=== PATIENT | female | born 1945 | race Two or more races ===

== ENCOUNTER 2020-05-11 06:09 | Outpatient (REF) | payer MEDICARE, SELFPAY ==
[2020-05-11 07:19] LABS: MANUAL DIFF FLAG NO
[2020-05-11 07:21] LABS: Basophils Percent Auto 0.4 % (0-2); Eosinophils Absolute Auto 0.1 X10*3/uL (0.0-0.4); Hematocrit 40.4 % (37-47); Hemoglobin 13.1 g/dl (12.0-16.0); Imm Gran Abs Auto 0.03 X10*3/uL (0.00-0.03); Imm Gran Pct Auto 0.3 % (0.0-0.4); Lymphocytes Absolute Auto 2.4 X10*3/uL (1.2-4.9); Lymphocytes Percent Auto 25.7 % (20-40); Mean Corpuscular HGB Conc 32.4 g/dl (31.0-35.0); Mean Corpuscular Hemoglobin 29.6 pg (27.0-33.0); Mean Corpuscular Volume 91.2 fL (80-98); Mean Platelet Volume 9.9 fL (9.4-12.3); Monocytes Absolute Auto 0.9 X10*3/uL (0.1-1.2); Monocytes Percent Auto 9.8 % (2-11); Neutrophils Absolute Auto 5.9 X10*3/uL (2.0-8.3); Neutrophils Percent Auto 62.8 % (45-73); Platelet Count 216 X10*3/uL (160-400); Red Blood Count 4.43 X10*6/uL (4.20-5.50); Red Cell Distribution Width 12.8 % (11.0-16.0); White Blood Count 9.3 X10*3/uL (4.8-10.8)
[2020-05-11 07:33] LABS: Estimated Average Glucose 120 mg/dL; Hemoglobin A1c % 5.8 %
[2020-05-11 07:52] LABS: Alanine Aminotransferase 14 U/L (0-31); Albumin Level 4.3 g/dL (3.5-5.0); Alkaline Phosphatase 71 U/L (39-117); Anion Gap 14 (12-20); Aspartate Amino Transferase 17 U/L (5-31); B Type Natriuretic Peptide 189 pg/mL (<100); Bilirubin Total 0.8 mg/dL (0.0-1.0); Blood Urea Nitrogen 15 mg/dL (9-16); Calcium 9.5 mg/dL (8.4-10.2); Carbon Dioxide 29 mmol/L (22-29); Chloride 103 mmol/L (96-108); Cholesterol 168 mg/dL; Estimated Glomerular Filt Rate 59; Glucose Random 95 mg/dL (60-115); HDL Cholesterol 39 mg/dL; LDL Cholesterol Calculated 100 mg/dl; Potassium 4.9 mmol/l (3.3-5.1); Sodium 141 mmol/L (135-145); Total Protein 7.6 g/dL (6.5-8.0); Triglycerides 147 mg/dL
[2020-05-11 08:14] LABS: Free T4 (Free Thyroxine) 1.03 ng/dL (0.71-1.85); Vitamin D 25-OH Total 30.1 ng/mL (>30)
[2020-05-11 09:17] LABS: Vitamin B12 758 pg/mL (200-900)
== END 2020-05-11 06:10 | disposition home or self-care (01) ==
LOC: HO.LAB 06:09
PROVIDERS: PCP Internal Medicine; Visit Provider Internal Medicine
DX: I11.0 Hypertensive heart disease with heart failure (principal); I50.32 Chronic diastolic (congestive) heart failure; E03.9 Hypothyroidism, unspecified; E78.00 Pure hypercholesterolemia, unspecified
CPT/HCPCS: 36415; 80053; 80061; 82306; 82607; 82746; 83036; 83880; 84439; 84443; 85025

== ENCOUNTER 2020-05-12 08:18 | Outpatient (REF) | payer MEDICARE, SELFPAY ==
--- NOTE | 2020-05-12 08:23 | MM_ITS ---
EXAMINATION: MM SCREENING DIGITAL BREAST TOMOSYNTHESIS, BILATERAL CLINICAL INFORMATION: Screening. Asymptomatic. The lifetime risk of breast cancer based on the Tyrer-Cuzick Model is 2%. COMPARISON: Mammography: 05/08/2019, 05/06/2018, 04/17/2017 TECHNIQUE: Digital breast tomosynthesis is performed in both the craniocaudal and mediolateral oblique views along with computer-aided detection (CAD). Synthesized 2D images are generated from the tomosynthesis. FINDINGS: There are scattered areas of fibroglandular density (ACR BI-RADS breast composition Category b). There are no significant masses, abnormal calcifications, or other abnormalities. There are scattered bilateral round and vascular calcifications again noted. Intramammary node again seen mid outer left breast. No significant changes. MM/MM tomosynthesis screening BI IMPRESSION: No mammographic evidence of malignancy. ASSESSMENT: BI-RADS 2: Benign RECOMMENDATION: Routine annual mammography screening. This patient's information was entered into a reminder system with a target due date for their next mammogram.
== END 2020-05-12 08:19 | disposition home or self-care (01) ==
LOC: HO.MAMMO 08:18
PROVIDERS: PCP Internal Medicine; Visit Provider Internal Medicine
DX: Z12.31 Encounter for screening mammogram for malignant neoplasm of breast (principal)
CPT/HCPCS: 77063; 77067

== ENCOUNTER 2020-06-16 09:23 | Outpatient (REF) | payer MEDICARE, SELFPAY | END 2020-06-16 09:24 | disposition home or self-care (01) | LOC: HO.LAB 09:23 | PROVIDERS: Visit Provider Internal Medicine | DX: Z20.822 Contact with and (suspected) exposure to COVID-19 (principal) | CPT/HCPCS: 36415; C9803; U0003; U0005 ==

== ENCOUNTER → 2020-07-15 10:30 | Outpatient (BNVA) | payer MEDICARE, SELFPAY | PROVIDERS: PCP Internal Medicine; Visit Provider Internal Medicine Cardiovascular Disease | DX: I47.1 Supraventricular tachycardia (principal); I50.32 Chronic diastolic (congestive) heart failure; Z79.899 Other long term (current) drug therapy | CPT/HCPCS: 99212 ==

== ENCOUNTER → 2020-12-07 09:27 | Outpatient (REF) | payer MEDICARE, SELFPAY ==
--- NOTE | 2020-12-07 09:31 | CA_ITS ---
Transthoracic Echocardiogram Patient (Last, First, Middle): Julia Franz, Gender: Female Date of : 1945 Age: 75 Procedure Date: 12/07/2020 Procedure Type: Transthoracic Echocardiogram Location: OP Height: 165.1 cm Weight: 81.65 kg BSA: 1.89 m2 Heart Rate: bpm BP: 122 / 60 mmHg Knife Changer: Referring MD: Valentin Vanegas MD Symptoms: I50.32 - Chronic diastolic (congestive) heart failure Study Quality: Good ECG Rhythm: Sinus Conclusions: - The left ventricular systolic function is normal. The visually estimated ejection fraction is between 60-65%. - There is moderate septal asymmetric hypertrophy.Other areas mild hypertrophy. - Evidence suggests grade II (moderate) diastolic dysfunction. - The left atrium is moderately dilated. - No obvious valvular pathology seen on this study. Findings Left Ventricle Normal left ventricular cavity size. There is mildly increased left ventricular wall thickness. The left ventricular systolic function is normal. The visually estimated ejection fraction is between 60-65%. There is no evidence of regional wall motion abnormalities. E/E prime ratio is between 8 and 15 consistent with indeterminate filling pressures. Evidence suggests grade II (moderate) diastolic dysfunction. There is moderate septal asymmetric hypertrophy. Right Ventricle Normal right ventricular cavity size and systolic function. Atria The left atrium is moderately dilated. The right atrium is normal in size. Aortic Valve There is a normal trileaflet aortic valve. There is no aortic valve stenosis. There is no aortic valve regurgitation. Mitral Valve There is mild anterior mitral leaflet thickening. There is trace mitral valve regurgitation. There is no mitral valve stenosis. Pulmonic Valve The pulmonic valve was not well visualized. Tricuspid Valve There is trace tricuspid valve regurgitation. The pulmonary artery systolic pressure is normal. Great Vessels Top normal ascending aortic size at 3.9 cm. Venous The inferior vena cava is normal in size and collapses greater than 50% with inspiration. Pericardium/Pleural There is no evidence of pericardial effusion. Prior Study Comparison No significant change compared to prior study dated: 01/08/2020. Recommendations, Care & Conclusions No obvious valvular pathology seen on this study. Measurements 2D Linear Measurements IVSd: 1.44 0.6-0.9/0.6-1.0 cm LVIDd: 4.78 3.9-5.3/4.2-5.9 cm LVIDd Index: 2.53 2.4-3.2/2.2-3.1 cm/m2 LVIDs: 2.88 2.0-3.6 cm LVPWd: 1.40 0.7-1.1 cm Ao Root: 3.60 2.1-3.5 cm LA Diam: 4.10 2.7-3.8/3.0-4.0 cm LAIDs Index: 2.17 1.5-2.3 cm/m2 LV Mass: 346.56 67-162/88-224 g LV Mass Index: 183.37 43-95/49-115 g/m2 LVOT Diam: 2.40 3.0+(-)1.3 cm Mitral Valve MV Pk E: 0.68 MV PK A: 0.53 MV Decel Time: 154.00 E/A: 1.30 E'Lateral: 8.27 E'Medial: 3.59 E/E' Med: 19.00 E/E' Lat: 8.20 PHT: 45.00 MVA PHT: 4.89 Decel [place]: 4.41 Aortic Valve AoV Pk [place]: 1.20 AoV Mn [place]: 0.72 AoV VTI: 0.30 AoV Pk Grad: 6.00 Aov Mn Grad: 3.00 [place] Cont.VTI: 4.14 LVOT LVOT Pk [place]: 0.95 LVOT Mn [place]: 0.63 LVOT VTI: 0.27 LVOT Pk Grad: 4.00 LVOT Mn Grad: 2.00 LVOT Diam: 2.40 LVOT Area: 4.52 Diastolic Function MV Pk E: 0.68 MV Pk A: 0.53 E/A: 1.30 E'Medial: 3.59 E/E' Med: 19.00 E' Laterial: 8.27 E/E' Lat: 8.20 Tricuspid Valve TR Pk [place]: 1.65 TR Pk Grad: 11.00 RA Press: 3.00 RVSP: 14.00 Great Vessels Aorta Ao Root-2D: 3.60 2.0-3.7 cm Ao Asc: 3.90 2.1-3.4 cm Pulmonary Valve PV Pk [place]: 0.90 Peak PV Grad: 3.00 Updated in Other Vendor System with Status of Final Jeremiah Wen MD electronically signed on 12/10/2020 1:00:29 PM with status of Final
== END ==
LOC: HO.CARD 09:27
PROVIDERS: Visit Provider Internal Medicine Cardiovascular Disease
DX: I11.0 Hypertensive heart disease with heart failure (principal); I50.32 Chronic diastolic (congestive) heart failure
CPT/HCPCS: 93306

== ENCOUNTER 2021-01-20 08:44 | Outpatient (REF) | payer MEDICARE, SELFPAY ==
[2021-01-20 10:55] LABS: Anion Gap 11 (12-20); Blood Urea Nitrogen 15 mg/dL (9-16); Calcium 10.2 mg/dL (8.4-10.2); Carbon Dioxide 30 mmol/L (22-29); Chloride 105 mmol/L (96-108); Estimated Glomerular Filt Rate > 60; Glucose Random 96 mg/dL (60-115); Potassium 4.8 mmol/L (3.3-5.1); Sodium 141 mmol/L (135-145)
[2021-01-20 10:58] LABS: B Type Natriuretic Peptide 305 pg/mL (<100)
== END 2021-01-20 08:45 | disposition home or self-care (01) ==
LOC: HO.LAB 08:44
PROVIDERS: PCP Internal Medicine; Referring Provider Internal Medicine; Visit Provider Internal Medicine Cardiovascular Disease
DX: I50.32 Chronic diastolic (congestive) heart failure (principal); I47.1 Supraventricular tachycardia
CPT/HCPCS: 36415; 80048; 83880; 93005; 99212

== ENCOUNTER 2021-02-17 06:00 | Outpatient (REF) | payer MEDICARE, SELFPAY ==
[2021-02-17 06:08] LABS: MANUAL DIFF FLAG NO
[2021-02-17 07:24] LABS: Basophils Percent Auto 0.5 % (0-2); Eosinophils Absolute Auto 0.1 X10*3/uL (0.0-0.4); Eosinophils Percent Auto 1.5 % (0-4); Hematocrit 37.7 % (37-47); Hemoglobin 12.2 g/dl (12.0-16.0); Imm Gran Abs Auto 0.01 X10*3/uL (0.00-0.03); Imm Gran Pct Auto 0.2 % (0.0-0.4); Lymphocytes Absolute Auto 2.2 X10*3/uL (1.2-4.9); Lymphocytes Percent Auto 33.3 % (20-40); Mean Corpuscular HGB Conc 32.4 g/dl (31.0-35.0); Mean Corpuscular Hemoglobin 29.5 pg (27.0-33.0); Mean Corpuscular Volume 91.1 fL (80-98); Mean Platelet Volume 9.6 fL (9.4-12.3); Monocytes Absolute Auto 0.8 X10*3/uL (0.1-1.2); Monocytes Percent Auto 12.2 % (2-11); Neutrophils Absolute Auto 3.4 X10*3/uL (2.0-8.3); Neutrophils Percent Auto 52.3 % (45-73); Platelet Count 206 X10*3/uL (160-400); Red Blood Count 4.14 X10*6/uL (4.20-5.50); Red Cell Distribution Width 12.2 % (11.0-16.0); White Blood Count 6.5 X10*3/uL (4.8-10.8)
[2021-02-17 07:51] LABS: Alanine Aminotransferase 12 U/L (0-31); Albumin Level 4.3 g/dL (3.5-5.0); Alkaline Phosphatase 65 U/L (39-117); Anion Gap 10 (12-20); Aspartate Amino Transferase 15 U/L (5-31); Bilirubin Total 0.7 mg/dL (0.0-1.0); Blood Urea Nitrogen 17 mg/dL (9-16); Calcium 10.2 mg/dL (8.4-10.2); Carbon Dioxide 33 mmol/L (22-29); Chloride 104 mmol/L (96-108); Cholesterol 171 mg/dL; Estimated Glomerular Filt Rate 57; Glucose Random 97 mg/dL (60-115); HDL Cholesterol 43 mg/dL; LDL Cholesterol Calculated 105 mg/dl; Sodium 142 mmol/L (135-145); Total Protein 7.4 g/dL (6.5-8.0); Triglycerides 115 mg/dL
[2021-02-17 07:57] LABS: B Type Natriuretic Peptide 204 pg/mL (<100)
[2021-02-17 08:12] LABS: Free T4 (Free Thyroxine) 1.08 ng/dL (0.71-1.85); Thyroid Stimulating Hormone 0.52 uIU/mL (0.32-4.0)
[2021-02-17 08:24] LABS: Folate 6.4 ng/mL (> or = 4.0); Vitamin B12 786 pg/mL (200-900)
== END 2021-02-17 06:01 | disposition home or self-care (01) ==
LOC: HO.LAB 06:00
PROVIDERS: PCP Internal Medicine; Visit Provider Internal Medicine
DX: I50.32 Chronic diastolic (congestive) heart failure (principal); E78.00 Pure hypercholesterolemia, unspecified; I25.10 Atherosclerotic heart disease of native coronary artery without angina pectoris
CPT/HCPCS: 36415; 80053; 80061; 82607; 82746; 83880; 84439; 84443; 85025

== ENCOUNTER 2021-02-25 07:13 | Outpatient (REF) | payer OTHER, MEDICARE, SELFPAY ==
--- NOTE | ~2021-02-25 | XR_ITS ---
EXAMINATION:XR cervical spine 2V CLINICAL INFORMATION: December 2019 COMPARISON: None TECHNIQUE: 3 views of the cervical spine were obtained. Frontal lateral and open-mouth odontoid view FINDINGS: 7 cervical vertebrae identified maintaining normal height , there is loss of normal cervical lordosis likely spasm.. Narrowing of intervertebral disc spaces at C4-C5, C5-C6, C6-C7 and C7-T1 suggests underlying moderate to severe degenerative disc disease. No prevertebral soft tissue swelling. Surrounding soft tissue and included lung apices are clear. Included lung apices are clear. XR/XR cervical spine 2V IMPRESSION: 1. No fracture. 2. Narrowing of disc spaces and developed anterior osteophytes suggests underlying moderate to severe degenerative disc disease. 3. Loss of normal cervical lordosis likely spasm.
--- NOTE | ~2021-02-25 | XR_ITS ---
EXAMINATION: XR LUMBAR SPINE XR SHOULDER, LEFT CLINICAL INFORMATION: Low back pain and left shoulder pain. COMPARISON: None TECHNIQUE: 4 views left shoulder, 3 views lumbosacral spine. FINDINGS: LUMBAR SPINE: Degenerative changes are noted at all levels throughout the lumbar spine with some mild disc space narrowing and endplate osteophytes. No fractures or bony destructive lesions are seen. Marked aortoiliac vascular calcifications are present. LEFT SHOULDER: The glenohumeral joint is well preserved without narrowing. No calcifications are seen in the rotator cuff. No fractures are detected. XR/XR shoulder LT 1V IMPRESSION: Mild degenerative changes lumbar spine with no significant left shoulder pathology seen.
--- NOTE | ~2021-02-25 | XR_ITS ---
EXAMINATION: XR LUMBAR SPINE XR SHOULDER, LEFT CLINICAL INFORMATION: Low back pain and left shoulder pain. COMPARISON: None TECHNIQUE: 4 views left shoulder, 3 views lumbosacral spine. FINDINGS: LUMBAR SPINE: Degenerative changes are noted at all levels throughout the lumbar spine with some mild disc space narrowing and endplate osteophytes. No fractures or bony destructive lesions are seen. Marked aortoiliac vascular calcifications are present. LEFT SHOULDER: The glenohumeral joint is well preserved without narrowing. No calcifications are seen in the rotator cuff. No fractures are detected. XR/XR lumbar spine 2-3V IMPRESSION: Mild degenerative changes lumbar spine with no significant left shoulder pathology seen.
== END 2021-02-25 07:14 | disposition home or self-care (01) ==
LOC: HO.XRAY 07:13
PROVIDERS: PCP Internal Medicine; Visit Provider Internal Medicine
DX: M25.512 Pain in left shoulder (principal); M54.2 Cervicalgia; M54.59 Other low back pain
CPT/HCPCS: 72040; 72100; 73020

== ENCOUNTER 2021-06-03 08:08 | Outpatient (REF) | payer MEDICARE, OTHER, SELFPAY ==
--- NOTE | ~2021-06-03 | MM_ITS ---
EXAMINATION: MM SCREENING DIGITAL BREAST TOMOSYNTHESIS, BILATERAL CLINICAL INFORMATION: Screening. Asymptomatic. The lifetime risk of breast cancer based on the Tyrer-Cuzick Model is 2%. COMPARISON: Mammography: 05/12/2020, 05/08/2019, 05/06/2018 TECHNIQUE: Digital breast tomosynthesis is performed in both the craniocaudal and mediolateral oblique views along with computer-aided detection (CAD). Synthesized 2D images are generated from the tomosynthesis. FINDINGS: There are scattered areas of fibroglandular density (ACR BI-RADS breast composition Category b). There are no significant masses, abnormal calcifications, or other abnormalities. Parenchymal pattern is similar to prior studies. There is no developing density or architectural abnormality. Breast tissue composition borders on heterogeneously dense. The axilla and skin contours are unremarkable. No significant changes. MM/MM tomosynthesis screening BI IMPRESSION: No significant changes from prior studies. ASSESSMENT: BI-RADS 1: Negative RECOMMENDATION: Routine annual mammography screening. This patient's information was entered into a reminder system with a target due date for their next mammogram.
== END 2021-06-03 08:09 | disposition home or self-care (01) ==
LOC: HO.MAMMO 08:08
PROVIDERS: Visit Provider Internal Medicine
DX: Z12.31 Encounter for screening mammogram for malignant neoplasm of breast (principal)
CPT/HCPCS: 77063; 77067

== ENCOUNTER → 2021-07-22 13:04 | Outpatient (REF) | payer MEDICARE, OTHER, SELFPAY ==
--- NOTE | 2021-07-22 13:07 | CA_ITS ---
Transthoracic Echocardiogram Patient (Last, First, Middle): Julia Frnaz, Gender: Female Date of : 1945 Age: 76 Procedure Date: 07/22/2021 Procedure Type: Transthoracic Echocardiogram Location: OP Height: 170.18 cm Weight: 90.27 kg BSA: 2.02 m2 Heart Rate: bpm BP: 120 / 70 mmHg Drafter Refrigeration: GENEVA Diez MD: Valentin Vanegas MD Sectional Belt Mold Assembler: Valentin Vanegas MD Symptoms: I50.32 - Chronic diastolic (congestive) heart failure Study Quality: Fair ECG Rhythm: Sinus Conclusions: - 1. Normal LV systolic function with impaired relaxation filling pattern with mild to moderate asymmetric septal hypertrophy 2. Mildly dilated left atrium 3. Normal cardiac valvular Doppler 4. Normal RV systolic pressure 5. No gross pericardial effusion Findings Left Ventricle Normal left ventricular size, thickness, and systolic function. The visually estimated ejection fraction is between 60-65%. Spectral Doppler is indicative of an impaired relaxation filling pattern. E/E prime ratio is between 8 and 15 consistent with indeterminate filling pressures. There is mild septal asymmetric hypertrophy. Right Ventricle Normal right ventricular cavity size and systolic function. Atria The left atrium is mildly dilated. There is lipomatous hypertrophy of the interatrial septum. There is no evidence of interatrial shunt. The right atrium is normal in size. Aortic Valve There is mild calcification of the aortic valve. There is no aortic valve stenosis. There is no aortic valve regurgitation. Mitral Valve There is mild anterior and posterior mitral leaflet thickening. There is trace mitral valve regurgitation. There is no mitral valve stenosis. Pulmonic Valve The pulmonic valve was not well visualized. Tricuspid Valve Likely normal tricuspid valve structure and function. There is trace tricuspid valve regurgitation. The right ventricular systolic pressure is normal. The right ventricular systolic pressure is 15 mmHg. Normal right atrial pressure. There is no evidence of pulmonary hypertension. Great Vessels All visible segments of the aorta are normal in size. The pulmonary artery was not well visualized. Venous The inferior vena cava is normal in size and collapses greater than 50% with inspiration. Pericardium/Pleural There is no evidence of pericardial effusion. Prior Study Comparison No significant change compared to prior study dated: 12/07/2020. Left ventricular filling pressures appear to be lower Measurements 2D Linear Measurements IVSd: 1.35 0.6-0.9/0.6-1.0 cm LVIDd: 5.06 3.9-5.3/4.2-5.9 cm LVIDd Index: 2.50 2.4-3.2/2.2-3.1 cm/m2 LVIDs: 2.76 2.0-3.6 cm LVPWd: 0.87 0.7-1.1 cm LA Diam: 4.00 2.7-3.8/3.0-4.0 cm LAIDs Index: 1.98 1.5-2.3 cm/m2 LV Mass: 266.53 67-162/88-224 g LV Mass Index: 131.94 43-95/49-115 g/m2 LVOT Diam: 2.30 3.0+(-)1.3 cm 2D Systolic Function EF 4C: 59.70 >55% EF 2C: 60.60 >55% EF BiP: 61.60 >55% Mitral Valve MV Pk E: 0.56 MV PK A: 0.52 MV Decel Time: 197.00 E/A: 1.10 E'Lateral: 5.33 E'Medial: 4.03 E/E' Med: 13.90 E/E' Lat: 10.50 PHT: 58.00 MVA PHT: 3.79 Decel [place]: 2.85 Aortic Valve AoV Pk [place]: 1.19 AoV Mn [place]: 0.82 AoV VTI: 0.26 AoV Pk Grad: 6.00 Aov Mn Grad: 3.00 [place] Cont.VTI: 4.36 LVOT LVOT Pk [place]: 1.21 LVOT Mn [place]: 0.87 LVOT VTI: 0.28 LVOT Pk Grad: 6.00 LVOT Mn Grad: 3.00 LVOT Diam: 2.30 LVOT Area: 4.15 Diastolic Function MV Pk E: 0.56 MV Pk A: 0.52 E/A: 1.10 E'Medial: 4.03 E/E' Med: 13.90 E' Laterial: 5.33 E/E' Lat: 10.50 Right Ventricle TAPSE (mm): 20.40 TVS' [place]: 10.20 Tricuspid Valve TR Pk [place]: 1.76 TR Pk Grad: 12.00 RA Press: 3.00 RVSP: 15.00 Great Vessels Aorta Sinus of Valsalva: 3.83 2.0-3.[address] [place]: 3.19 1.7-3.4 cm Ao Asc: 3.90 2.1-3.4 cm Ao Arch: 2.80 Updated in Other Vendor System with Status of Final Valentin Vanegas MD electronically signed on 07/24/2021 10:08:56 AM with status of Final
== END ==
LOC: HO.CARD 13:04
PROVIDERS: Visit Provider Internal Medicine Cardiovascular Disease
DX: I50.32 Chronic diastolic (congestive) heart failure (principal)
CPT/HCPCS: 93306

== ENCOUNTER → 2021-07-26 09:23 | Outpatient (BNVA) | payer MEDICARE, OTHER, SELFPAY | PROVIDERS: PCP Internal Medicine; Referring Provider Internal Medicine; Visit Provider Internal Medicine Cardiovascular Disease | DX: I50.32 Chronic diastolic (congestive) heart failure (principal); I47.1 Supraventricular tachycardia | CPT/HCPCS: 99212 ==

== ENCOUNTER 2021-11-09 05:59 | Outpatient (REF) | payer OTHER, SELFPAY ==
[2021-11-09 06:14] LABS: MANUAL DIFF FLAG NO
[2021-11-09 08:13] LABS: Basophils Absolute Auto 0.1 X10*3/uL (0.0-0.2); Basophils Percent Auto 0.7 % (0-2); Eosinophils Absolute Auto 0.1 X10*3/uL (0.0-0.4); Eosinophils Percent Auto 1.7 % (0-4); Hematocrit 39.4 % (37.0-47.0); Hemoglobin 12.9 g/dl (12.0-16.0); Imm Gran Abs Auto 0.02 X10*3/uL (0.00-0.03); Imm Gran Pct Auto 0.3 % (0.0-0.4); Lymphocytes Absolute Auto 2.4 X10*3/uL (1.2-4.9); Lymphocytes Percent Auto 31.8 % (20-40); Mean Corpuscular HGB Conc 32.7 g/dl (31.0-35.0); Mean Corpuscular Hemoglobin 29.8 pg (27.0-33.0); Mean Platelet Volume 9.8 fL (9.4-12.3); Monocytes Absolute Auto 0.8 X10*3/uL (0.1-1.2); Monocytes Percent Auto 10.1 % (2-11); Neutrophils Absolute Auto 4.2 x10*3/uL (2.0-8.3); Neutrophils Percent Auto 55.4 % (45-73); Platelet Count 235 X10*3/uL (160-400); Red Blood Count 4.33 X10*6/uL (4.20-5.50); Red Cell Distribution Width 12.3 % (11.0-16.0); White Blood Count 7.6 X10*3/uL (4.8-10.8)
[2021-11-09 08:44] LABS: Alanine Aminotransferase 17 U/L (0-31); Albumin Level 4.2 g/dL (3.5-5.0); Alkaline Phosphatase 76 U/L (39-117); Anion Gap 12 (12-20); Aspartate Amino Transferase 18 U/L (5-31); Bilirubin Total 0.5 mg/dL (0.0-1.0); Blood Urea Nitrogen 19 mg/dL (9-16); Calcium 9.5 mg/dL (8.4-10.2); Carbon Dioxide 30 mmol/L (22-29); Chloride 104 mmol/L (96-108); Cholesterol 192 mg/dL; Estimated Glomerular Filt Rate 58; Glucose Random 93 mg/dL (60-115); HDL Cholesterol 41 mg/dL; LDL Cholesterol Calculated 126 mg/dl; Magnesium 2.1 mg/dL (1.6-2.6); Potassium 4.8 mmol/L (3.3-5.1); Sodium 141 mmol/L (135-145); Total Protein 7.5 g/dL (6.5-8.0); Triglycerides 129 mg/dL
[2021-11-09 08:50] LABS: B Type Natriuretic Peptide 204 pg/mL (<100)
[2021-11-09 09:08] LABS: Free T4 (Free Thyroxine) 0.85 ng/dL (0.71-1.85); Thyroid Stimulating Hormone 2.73 uIU/mL (0.32-4.0); Vitamin D 25-OH Total 26.2 ng/mL (>30)
[2021-11-09 09:10] LABS: Folate 8.4 ng/mL (> or = 4.0); Vitamin B12 771 pg/mL (200-900)
== END 2021-11-09 06:00 | disposition home or self-care (01) ==
LOC: HO.LAB 05:59
PROVIDERS: PCP Internal Medicine; Visit Provider Internal Medicine
DX: E78.00 Pure hypercholesterolemia, unspecified (principal); I11.0 Hypertensive heart disease with heart failure; I50.32 Chronic diastolic (congestive) heart failure; E03.9 Hypothyroidism, unspecified
CPT/HCPCS: 36415; 80053; 80061; 82306; 82607; 82746; 83735; 83880; 84439; 84443; 85025

== ENCOUNTER 2022-06-06 09:04 | Outpatient (REF) | payer OTHER, SELFPAY ==
--- NOTE | ~2022-06-06 | MM_ITS ---
EXAMINATION: BONE DENSITOMETRY CLINICAL INDICATION: Age-related osteoporosis without current pathological fracture. COMPARISON: Previous BD dated 08/10/2016 and baseline BD dated 01/06/2010. TECHNIQUE: Using a [facility] DXA System (software version: 13.1) manufactured by [employer], dual-energy x-ray absorptiometry was performed of the lumbar spine and left hip. The images are of good technical quality. Summary results are attached. FINDINGS: AP SPINE L1-L4: Current: BMD 1.066 g/cm2, Z-score 0.0, T-score -0.9, normal, 6.3% increase from previous, 0.8% decrease from baseline (<5% change is not significant). Prior: BMD 1.003 g/cm2. Baseline: BMD 1.075 g/cm2. LEFT FEMUR, NECK: Current: BMD 0.889 g/cm2, Z-score 0.4, T-score -1.1, osteopenia. Prior: BMD 0.914 g/cm2. Baseline: BMD 1.035 g/cm2. LEFT FEMUR, TOTAL: Current: BMD 0.994 g/cm2, Z-score 1.2, T-score -0.1, normal, 1.1% decrease from previous, 5.5% decrease from baseline (<5% change is not significant). Prior: BMD 1.005 g/cm2. Baseline: BMD 1.052 g/cm2. IDENTIFIED RISK FACTORS: Height loss. Secondary osteoporosis (early menopause). Hysterectomy. Bilateral oophorectomy. HISTORY OF FRACTURE: None listed. MEDICATIONS: Calcium supplement or multivitamin. Vitamin D. MM/XR DEXA axial skeleton IMPRESSION: 1. DIAGNOSIS: Osteopenia based on the lowest T-score value of -1.1 in the femoral neck applying World Health Organization criteria. 2. 10-YEAR FRACTURE RISK PREDICTION, FRAX: Major osteoporotic fracture (clinical spine, forearm, hip or shoulder) 6.3%. Hip fracture 1.1%. 3. Treatment Recommendations: NOF guidelines recommend consideration for treatment in postmenopausal women and men age 50 and older presenting with the following: -A hip or vertebral (clinical or morphometric) fracture. -T-score less than or equal to -2.5 at the femoral neck or spine after appropriate evaluation to exclude secondary causes. -Low bone mass at the hip or spine and a 10-year fracture probability by FRAX of greater than or equal to 3% for hip fracture or greater than or equal to 20% for major osteoporotic fracture based on the [place] adapted WHO algorithm. 4. Other Recommendations: All treatment decisions require clinical judgment and consideration of individual patient factors, including patient preferences, comorbidities, previous drug use, risk factors not captured in the FRAX model (e.g. frailty, falls, vitamin D deficiency, increased bone turnover, interval significant decline in bone density) and possible under or overestimation of fracture risk by FRAX. Additional medical evaluation for secondary cause of low bone mineral density may be appropriate. FUTURE SCAN RECOMMENDATION: People with diagnosed cases of osteoporosis or at high risk for fracture should have regular bone mineral density tests. For patients eligible for Medicare, routine testing is allowed once every 2 years. The testing frequency can be increased to one year for patients who have rapidly progressing disease, those who are receiving or discontinuing medical therapy to restore bone mass, or have additional risk factors.
--- NOTE | ~2022-06-06 | MM_ITS ---
EXAMINATION: MM SCREENING DIGITAL BREAST TOMOSYNTHESIS, BILATERAL CLINICAL INFORMATION: Screening. Asymptomatic. Previous right breast biopsy. The lifetime risk of breast cancer based on the Tyrer-Cuzick Model is 1.1%. COMPARISON: Mammography: June 03, 2021 and studies dating back to March 10, 2016 TECHNIQUE: Digital breast tomosynthesis is performed in both the craniocaudal and mediolateral oblique views along with computer-aided detection (CAD). Synthesized 2D images are generated from the tomosynthesis. FINDINGS: The breasts are heterogeneously dense, which may obscure small masses (ACR BI-RADS breast composition Category c). There are no significant masses, abnormal calcifications, or other abnormalities. Postsurgical scarring is noted within the right breast. MM/MM tomosynthesis screening BI IMPRESSION: No significant changes ASSESSMENT: BI-RADS 2: Benign RECOMMENDATION: Routine annual mammography screening. This patient's information was entered into a reminder system with a target due date for their next mammogram.
== END 2022-06-06 09:05 | disposition home or self-care (01) ==
LOC: HO.MAMMO 09:04
PROVIDERS: PCP Internal Medicine; Visit Provider Internal Medicine
DX: Z12.31 Encounter for screening mammogram for malignant neoplasm of breast (principal); Z13.820 Encounter for screening for osteoporosis; M81.0 Age-related osteoporosis without current pathological fracture; Z78.0 Asymptomatic menopausal state; H91.90 Unspecified hearing loss, unspecified ear
CPT/HCPCS: 77063; 77067; 77080

== ENCOUNTER 2022-06-26 14:47 | Outpatient (REF) | payer OTHER, SELFPAY ==
[2022-06-26 15:13] LABS: Hematocrit 38.5 % (37.0-47.0); Hemoglobin 12.5 g/dl (12.0-16.0); Mean Corpuscular HGB Conc 32.5 g/dl (31.0-35.0); Mean Corpuscular Hemoglobin 29.1 pg (27.0-33.0); Mean Corpuscular Volume 89.5 fL (80.0-98.0); Mean Platelet Volume 9.4 fL (9.4-12.3); Platelet Count 223 X10*3/uL (160-400); Red Cell Distribution Width 12.9 % (11.0-16.0); White Blood Count 8.7 X10*3/uL (4.8-10.8)
[2022-06-26 16:19] LABS: TSH reflex Free T4 1.73 uIU/mL (0.32-4.0); Vitamin D 25-OH Total 29.4 ng/mL (>30)
== END 2022-06-26 14:48 | disposition home or self-care (01) ==
LOC: HO.LAB 14:47
PROVIDERS: PCP Internal Medicine; Visit Provider Nurse Practitioner Family
DX: E03.9 Hypothyroidism, unspecified (principal); I10 Essential (primary) hypertension
CPT/HCPCS: 36415; 82306; 84443; 85027

== ENCOUNTER 2022-07-19 05:59 | Outpatient (REF) | payer OTHER, SELFPAY ==
[2022-07-19 07:33] LABS: Alanine Aminotransferase 13 U/L (0-31); Albumin Level 4.1 g/dL (3.5-5.0); Alkaline Phosphatase 74 U/L (39-117); Anion Gap 12 (12-20); Aspartate Amino Transferase 18 U/L (5-31); Bilirubin Total 0.5 mg/dL (0.0-1.0); Blood Urea Nitrogen 17 mg/dL (9-16); Calcium 9.6 mg/dL (8.4-10.2); Carbon Dioxide 29 mmol/L (22-29); Chloride 105 mmol/L (96-108); Cholesterol 155 mg/dL; Estimated Glomerular Filt Rate 56; Glucose Fasting 93 mg/dL (60-99); HDL Cholesterol 40 mg/dL; LDL Cholesterol Calculated 95 mg/dl; Potassium 4.6 mmol/L (3.3-5.1); Sodium 141 mmol/L (135-145); Total Protein 7.2 g/dL (6.5-8.0); Triglycerides 104 mg/dL
[2022-07-19 08:14] LABS: Appearance Urine Clear; Color Urine Yellow; Glucose Urine UA Negative (Negative); Leukocyte Esterase Urine Small (1+) (Negative); Nitrite Urine Negative (Negative); Specific Gravity - Urine 1.015 (1.005-1.025); UMIC TRIGGER UACC YES; Urine Blood Moderate (2+) (Negative); Urine Ketones Negative (Negative); Urine Protein Negative (Neg-Trace)
[2022-07-19 08:29] LABS: Bacteria Urine None Seen (None Seen); Hyaline Casts Urine 0-2 /LPF (0-2); UACC Culture Trigger YES; WBC Urine 0-5 /HPF (0-5)
== END 2022-07-19 06:00 | disposition home or self-care (01) ==
LOC: HO.LAB 05:59
PROVIDERS: PCP Internal Medicine; Visit Provider Nurse Practitioner Family
DX: I10 Essential (primary) hypertension (principal); E78.00 Pure hypercholesterolemia, unspecified; R82.90 Unspecified abnormal findings in urine
CPT/HCPCS: 36415; 80053; 80061; 81001; 81003; 87086

== ENCOUNTER → 2022-07-27 09:46 | Outpatient (BNVA) | payer OTHER, SELFPAY | PROVIDERS: PCP Internal Medicine; Referring Provider Internal Medicine; Visit Provider Internal Medicine Cardiovascular Disease | DX: R07.9 Chest pain, unspecified (principal); I50.32 Chronic diastolic (congestive) heart failure; I47.1 Supraventricular tachycardia | CPT/HCPCS: 93005; 99212 ==

== ENCOUNTER → 2022-08-14 07:52 | Outpatient (REF) | payer OTHER, SELFPAY ==
--- NOTE | ~2022-08-14 | NM_ITS ---
Myocardial perfusion study Indication: Chest pain to evaluate for myocardial ischemia Technique: The patient was brought in for a Lexiscan perfusion study on 08/14/2022. Patient performed low-level exercise and was injected 0.4 mg of Lexiscan intravenously. Within a minute of injection, 30 mCi of sestamibi was given intravenously. Images were obtained using the SPECT gamma camera interlaced with the gating device. Images were obtained in supine position. Resting perfusion study was performed on 08/15/2022. Patient was administered 30 mCi of sestamibi intravenously at rest. Images were then obtained in supine position. Images obtained with and without CT attenuation. Total DLP 114 mGy-cm. Images were processed with the software and compared side to side in short axis, horizontal long axis and vertical long axis views. Findings: The stress perfusion study showed non attenuated images show moderately reduced uptake in the basal and mid inferolateral, lateral as well as the entire inferolateral as well as moderately reduced uptake in the basal and mid anterior as well as basal inferior wall of the LV myocardium. Attenuated corrected images show minimally reduced uptake in the basal inferior wall as well as the basal anterolateral wall of the LV myocardium.. The gated study shows reduced LV systolic function with calculated LVEF of 45%. LV cavity is normal in size. The gated study shows normal systolic wall thickening and contraction of segments. Resting study shows no change in perfusion pattern compared to stress perfusion study. Gating at rest reveals normal systolic wall motion with ejection fraction at 37%. The findings are consistent with no reversible defect suggestive of ischemia. Findings on non attenuated images are suggestive of attenuation artifact. NM/NM aksey perf SPECT rest & str Impression: 1. Myocardial perfusion imaging study shows no evidence of ischemia 2. Gated LVEF is 45% with stress and 37% with rest 3. Transient ischemic dilatation not present EKG is nondiagnostic for ischemia
--- NOTE | 2022-08-14 07:55 | CA_ITS ---
Acquisition Time: 2022-08-14 08:14:20 Total Exercise Time: 00:02:00 Test Indications: SVT Medications: SEE H Protocol: LEXISCAN Max HR: 117 BPM 82% of Pred: 142 BPM Max BP: 138/084 mmHG Max Work Load: 1.0 METS Pharmacological stress test with Lexiscan injection, while sitting and kicking her legs, without anginal symptoms, without arrythmia, with normotensive response to injection, with nondiagnostic EKG for ischemia. Nuclear images pending. Test reviewed with Dr Flores. Referred By: Valentin Vanegas Overread By: NAVI BRIGHT
== END ==
LOC: HO.CARD 07:52
PROVIDERS: PCP Internal Medicine; Visit Provider Internal Medicine Cardiovascular Disease
DX: R07.9 Chest pain, unspecified (principal)
CPT/HCPCS: 78452; 93017; A9500; J0280; J2785

== ENCOUNTER → 2022-09-07 12:33 | Outpatient (REF) | payer OTHER, SELFPAY ==
--- NOTE | 2022-09-07 12:36 | CA_ITS ---
Transthoracic Echocardiogram Patient (Last, First, Middle): Julia Franz, Gender: Female Date of : 1945 Age: 77 Procedure Date: 09/07/2022 Procedure Type: Transthoracic Echocardiogram Location: OP Height: 170. cm Weight: 88.45 kg BSA: 2.00 m2 Heart Rate: 59 bpm BP: 125 / 75 mmHg Indigo Mixer: JAYSON Referring MD: Valentin Vanegas MD Bottle House Pumper: Valentin Vanegas MD Symptoms: I47.1 - Supraventricular tachycardia Study Quality: Adequate w contrast ECG Rhythm: Bradycardia Conclusions: - 1. Normal LV systolic function with mild concentric left ventricular hypertrophy with moderate asymmetric septal hypertrophy without obstructive physiology with impaired relaxation filling pattern 2. Mildly dilated left atrium 3. Normal cardiac valvular Dopplers 4. Normal RV systolic pressure 5. Upper limits of normal ascending aortic size 6. No gross pericardial effusion Findings Procedure Information Contrast agent, definity, is being given per protocol without apparent complications. Left Ventricle Normal left ventricular size and systolic function. There is mildly increased left ventricular wall thickness. The visually estimated ejection fraction is between 65-70%. Spectral Doppler is indicative of an impaired relaxation filling pattern. E/E prime ratio is between 8 and 15 consistent with indeterminate filling pressures. There is moderate septal asymmetric hypertrophy. Right Ventricle Normal right ventricular cavity size and systolic function. Atria The left atrium is mildly dilated. Interatrial shunt cannot be excluded. The right atrium was not well visualized. Aortic Valve The aortic valve structure and function is likely normal. There is mild aortic valve stenosis. There is no aortic valve regurgitation. Mitral Valve Likely normal mitral valve structure and function. There is trace mitral valve regurgitation. There is no mitral valve stenosis. Pulmonic Valve The pulmonic valve was not well visualized. Tricuspid Valve Likely normal tricuspid valve structure and function. There is trace tricuspid valve regurgitation. The right ventricular systolic pressure is normal. The right ventricular systolic pressure is 22 mmHg. Normal right atrial pressure. There is no evidence of pulmonary hypertension. Great Vessels The pulmonary artery was not well visualized. Venous The inferior vena cava is normal in size and collapses greater than 50% with inspiration. Pericardium/Pleural There is no evidence of pericardial effusion. Prior Study Comparison No significant change compared to prior study dated: 07/22/2021. Measurements 2D Linear Measurements IVSd: 1.61 0.6-0.9/0.6-1.0 cm LVIDd: 4.84 3.9-5.3/4.2-5.9 cm LVIDd Index: 2.42 2.4-3.2/2.2-3.1 cm/m2 LVIDs: 2.68 2.0-3.6 cm LVPWd: 1.19 0.7-1.1 cm LA Diam: 3.80 2.7-3.8/3.0-4.0 cm LAIDs Index: 1.90 1.5-2.3 cm/m2 LV Mass: 345.87 67-162/88-224 g LV Mass Index: 172.93 43-95/49-115 g/m2 LVOT Diam: 1.80 3.0+(-)1.3 cm 2D Systolic Function EF 4C: 66.60 >55% EF 2C: 68.20 >55% EF BiP: 67.50 >55% Mitral Valve MV Pk E: 0.54 MV PK A: 0.50 MV Decel Time: 247.00 E/A: 1.10 E'Lateral: 6.22 E'Medial: 3.94 E/E' Med: 13.60 E/E' Lat: 8.60 PHT: 72.00 MVA PHT: 3.06 Decel [place]: 2.16 Aortic Valve AoV Pk [place]: 1.11 AoV Mn [place]: 0.84 AoV VTI: 0.28 AoV Pk Grad: 5.00 Aov Mn Grad: 3.00 [place] Cont.VTI: 2.23 LVOT LVOT Pk [place]: 0.98 LVOT Mn [place]: 0.74 LVOT VTI: 0.25 LVOT Pk Grad: 4.00 LVOT Mn Grad: 2.00 LVOT Diam: 1.80 LVOT Area: 2.54 Diastolic Function MV Pk E: 0.54 MV Pk A: 0.50 E/A: 1.10 E'Medial: 3.94 E/E' Med: 13.60 E' Laterial: 6.22 E/E' Lat: 8.60 Right Ventricle TAPSE (mm): 22.60 Tricuspid Valve TR Pk [place]: 2.18 TR Pk Grad: 19.00 RA Press: 3.00 RVSP: 22.00 Great Vessels Aorta Sinus of Valsalva: 3.80 2.0-3.5 cm Ao Asc: 3.70 2.1-3.4 cm Pulmonary Valve PV Pk [place]: 0.66 Peak PV Grad: 2.00 Updated in Other Vendor System with Status of Final aVlentin Vanegas MD electronically signed on 09/07/2022 3:51:12 PM with status of Final
== END ==
LOC: HO.CARD 12:33
PROVIDERS: PCP Internal Medicine; Visit Provider Internal Medicine Cardiovascular Disease
DX: R07.9 Chest pain, unspecified (principal); I47.1 Supraventricular tachycardia
CPT/HCPCS: 93306; Q9957

== ENCOUNTER 2023-02-22 11:17 | Outpatient (AMB) | payer OTHER, SELFPAY ==
[2023-02-22 11:20] VITALS: BP 114/70; PULSE 62; O2SAT 97; BMI 30.9
--- NOTE | 2023-02-22 11:20 | A.OFFPC_ITS ---
Vital Signs 02/22/23 11:20 Height 5 ft 5 in Weight 186 lb BMI 30.9 BP 114/70 Blood Pressure Location Lt brachial Position Sitting Pulse 62 Pulse Source Pulse Oximeter Pulse Oximetry (%) 97 Oxygen Delivery Method Room Air Intake Visit Reasons: F/u HTN, HLD, thyroid Allergies aspirin [ASPIRIN] Allergy (Unknown, Verified 02/22/23 11:20) RASH, swelling atorvastatin Allergy (Unknown, Verified 02/22/23 11:20) Unknown ibuprofen [From Motrin] Allergy (Unknown, Verified 02/22/23 11:20) rash,swelling lisinopril Allergy (Unknown, Verified 02/22/23 11:20) Unknown simvastatin Allergy (Unknown, Verified 02/22/23 11:20) interaction with cardizem Medication List - Last Reconciled 02/22/23 by Rashid Bailon MD acetaminophen ER (Mapap Arthritis Pain) 650 mg PO Q8H PRN amitriptyline 25 mg PO DAILY calcium carbonate (Oyster Shell Calcium) 500 mg PO DAILY 90 days carvedilol 6.25 mg PO BID 90 days cholecalciferol (vitamin D3) 25 mcg PO DAILY clopidogrel 75 mg PO DAILY cyanocobalamin (vitamin B-12) (Vitamin B-12) 1,000 mcg PO DAILY diltiazem HCl 240 mg PO DAILY levothyroxine 100 mcg PO DAILY meloxicam 7.5 mg PO DAILY 90 days netarsudil 0.02% (Rhopressa) 0 drps ophthalmic (eye) rosuvastatin 10 mg PO DAILY 30 days spironolactone 25 mg PO DAILY timolol maleate 0.5% 0 drps ophthalmic (eye) Tobacco use date assessed: 06/20/22 Fall risk assessment: No Falls in past year Last assessed Fall Risk: 02/22/23 Dental Screening Dental Screen Date: 02/22/23 Did you have a dental visit in the last 12 months?: No Did you have a dental problem in the last 6 months where you did not have access to dental care?: No Was dental information given to patient?: No HPI F/u HTN, HLD, thyroid HPI Details 77-year-old obese female with coronary a rtery disease, congestive heart failure, hypertension, hypothyroidism asthma hypercholesterolemia coming in for follow-up. Patient was last seen in September 2022.. noted weight loss- was constipated but better, no cough , no sob, has frequency 1 week started, no fevers, no b/b sx. Patient also complains of left elbow pain and states that was sitting down in fell on the left elbow and also some right knee pain. Right knee x-ray was done in 2019 showing degenerative changes in arthritis will retest. [facility] Medical History (Updated 02/22/23 @ 12:25 by Rashid Bailon MD) Colonoscopy refused Colon cancer screening Coronary artery disease Knee osteoarthritis Congestive heart failure Migraine Peripheral vascular disease Benign hematuria SVT (supraventricular tachycardia) Hypercholesterolemia Vitamin D deficiency Asthma Hypothyroid Hypertension Obesity (BMI 30-39.9) Peroneal neuropathy Surgical History History of appendectomy History of lumpectomy of right breast History of tonsillectomy History of total abdominal hysterectomy and bilateral salpingo-oophorectomy History of tubal ligation Family History (Updated 10/04/22 @ 08:22 by Ina Naik CMA) Father No problems noted. Mother Hypertension CVD (cardiovascular disease) Social History Housing: Apartment Alcohol intake: never Patient Tobacco Use Status: Never used Tobacco e-Cigarette/Vaping Use: Never Used Second Hand Smoke Exposure: No service: No Current occupational status: retired and disabled Cognitive needs: No Hearing needs: No Vision needs: Yes Questionnaire PHQ-9 Over the last 2 weeks, how often have you been bothered by any of the following problems? 1. Little interest or pleasure in doing things: not at all 2. Feeling down, depressed, or hopeless: not at all 3. Trouble falling or staying asleep, or sleeping too much: not at all 4. Feeling tired or having little energy: not at all 5. Poor appetite or overeating: not at all 6. Feeling bad about yourself - or that you are a failure or have let yourself o r your family down: not at all 7. Trouble concentrating on things, such as reading the newspaper or watching television: not at all 8. Moving or speaking so slowly that other people could have noticed. Or the opposite - being so fidgety or restless that you have been moving around a lot more than usual: not at all 9. Thoughts that you would be better off or of hurting yourself in some way: not at all Total score: 0 Depression Screening Interpretation: Negative Depression Screening Done: Yes 38406 - PHQ-9 Billing: Yes Source: Developed by Drs. Gautam Marshall, Solo Gonzales nd colleagues, with an educational puja from [employer]. Thrive Questionnaire Date Thrive assessed: 06/20/22 AUDIT C Alcohol Use Questionnaire (AUDIT-C) 1. How often do you have a drink containing alcohol?: Never 2. How many drinks containing alcohol do you have on a typical day when you are drinking?: 1 or 2 3. How often do you have six or more drinks on one occasion?: Never Total Score: 0 Score Reviewed/Action Taken: No ANJU-7 AMB Questionnaire ANJU-7 Date ANJU - 7 assessed: 06/20/22 Source: Developed by Drs. Gautam Marshall, Virginia Parish, Solo Mesa and colleagues, with an educational puja from [employer]. Physical exam (Primary Care) Vital Signs: Last Vital Signs Pulse 62 02/22/23 11:20 BP 114/70 02/22/23 11:20 Pulse Ox 97 02/22/23 11:20 Oxygen Delivery Method Room Air 02/22/23 11:20 BMI result Body Mass Index 30.9 Tobacco/Smoking Status: Tobacco use Status Tobacco use date assessed 06/20/22 02/22/23 11:21 Patient Tobacco Use Status Never used Tobacco 02/22/23 11:21 e-Cigarette/Vaping Use Never Used 02/22/23 11:21 PHQ-9: PHQ-9 Score PHQ-9: Total score 0 02/22/23 11:46 Depression Screening Interpretation: Negative Thrive Assessment: Date of Thrive Assessment Date Thrive assessed 06/20/22 02/22/23 11:21 Const General: alert; No acute distress Eyes Conjunctivae: conjunctivae normal Resp Auscultation: clear to auscultation bilaterally Cardio Rate: regular rate Rhythm: regular rhythm GI Inspection: Yes normal to inspection Extrem General: Yes normal to inspection and No edema Office Procedures Flu Questionnaire Does the patient have a severe egg allergy?: No Does the patient have severe life threatening allergies?: No Does the patient have a fever or illness today?: No Has the patient ever had Guillain-[place] Syndrome?: No Has the patient ever had any past reaction to a flu shot?: No Immunizations flu vacc [id number] 6mos up(PF) 60 mcg(15 mcgx4)/0.5 mL IM syringe Performing Provider: Rashid Bailon MD [facility] Administered by: Ina Naik CMA on 02/22/23 11:46 Dose Route Admin Location Dispensed Lot Number Expiration Date NDC Jumpbasting Armhole Baster 0.5 mL IM Left Deltoid 0.5 mL [id number] 11/11/23 15485-199-97 Happy Hour Pal VIS Given Date VIS Provided VIS Publication Date 02/22/23 Single Vaccine 20 Eligibility Eligibility Date Funding Source Not [facility] Eligible 02/22/23 Private Assessment and Plan Assessment & Plan (1) Obesity (BMI 30-39.9): Code(s): E66.9 - Obesity, unspecified Plan: Diet and exercise noted weight loss but patient was not trying. Will workup thyroid and electrolytes. (2) Hypertension: Code(s): I10 - Essential (primary) hypertension Qualifiers: Hypertension type: essential hypertension Qualified Code(s): I10 - Essential (primary) hypertension Plan: Continue with blood pressure medication. Decrease salt intake and exercise continue with diltiazem 240 mg once a day carvedilol 6.25 mg twice a day (3) Hypothyroid: Code(s): E03.9 - Hypothyroidism, unspecified Qualifiers: Hypothyroidism type: acquired Qualified Code(s): E03.9 - Hypothyroidis m, unspecified Plan: Continue with thyroid medication June tested (4) Asthma: Code(s): J45.909 - Unspecified asthma, uncomplicated Qualifiers: Asthma severity: mild Asthma persistence: intermittent Asthma complication type: uncomplicated Qualified Code(s): J45.20 - Mild intermittent asthma, uncomplicated Plan: Stable without any inhalers (5) Hypercholesterolemia: Code(s): E78.00 - Pure hypercholesterolemia, unspecified Plan: Avoid fried foods, chicken skin, eggs, butter margarine, pastries and meat. Be it pork or beef they have a lot of cholesterol LDL goal of less than 70 and triglyceride of less than 150. Patient on rosuvastatin 10 mg once a day (6) Coronary artery disease: Comment: nstemi September 2017 SVT, January 2018 hypertrophic cardiomyopathy, December 2018 normal LV function mild hypertrophy, Holter normal December 2018, December 2019 echo normal ejection fraction with septal hypertrophy a symmetric mild left atrial enlargement Lexiscan stress test July 2022 negative Code(s): I25.10 - Atherosclerotic heart disease of [place] coronary artery without angina pectoris Qualifiers: Coronary Disease-Associated Artery/Lesion type: [place] artery [place] vs. transplanted heart: [place] heart Associated angina: without angina Qualified Code(s): I25.10 - Atherosclerotic heart disease of [place] coronary artery without angina pectoris Plan: Control the cholesterol, weight, blood pressure, (7) Elbow pain, left: Code(s): M25.522 - Pain in left elbow Plan: will request for xray (8) Knee pain, right: Code(s): M25.561 - Pain in right knee Plan: will have xray done (9) Loss of weight: Code(s): R63.4 - Abnormal weight loss Plan: Will get some blood work as well as urinalysis. Orders: Orders Influenza [id number] Immunization Today Z23 - Encounter for immunization XR elbow LT 2V Today M25.522 - Pain in left elbow Free T4 (Free Thyroxine) Today E03.9 - Hypothyroidism, unspecified Thyroid Stimulating Hormone Today E03.9 - Hypothyroidism, unspecified Comprehensive Met. Panel Today E03.9 - Hypothyroidism, unspecified UA w Microscopic Today E03.9 - Hypothyroidism, unspecified XR knee RT 2V Today M25.561 - Pain in right knee Complete Blood Count Auto Diff Today E03.9 - Hypothyroidism, unspecified Coding Level of Care Code Est Pt Level 4 (81357) Diagnoses Obesity (BMI 30-39.9) E66.9 Essential hypertension I10 Hypertension type: essential hypertension Acquired hypothyroidism E03.9 Hypothyroidism type: acquired Mild intermittent asthma without complication J45.20 Asthma severity: mild Asthma persistence: intermittent Asthma complication type: uncomplicated Hypercholesterolemia E78.00 Coronary artery disease involving chicken [place] coronary artery of [place] heart without angina pectoris I25.10 Coronary Disease-Associated Artery/Lesion type: [place] artery [place] vs. transplanted heart: [place] heart Associated angina: without angina Elbow pain, left M25.522 Knee pain, right M25.561 Loss of weight R63.4
== END 2023-02-22 12:25 | disposition home or self-care (01) ==
PROVIDERS: PCP Internal Medicine; Visit Provider Internal Medicine
DX: I10 Essential (primary) hypertension (principal); E66.9 Obesity, unspecified; E78.00 Pure hypercholesterolemia, unspecified; Z68.30 Body mass index [BMI] 30.0-30.9, adult; E03.9 Hypothyroidism, unspecified; J45.20 Mild intermittent asthma, uncomplicated; Z23 Encounter for immunization; I25.10 Atherosclerotic heart disease of native coronary artery without angina pectoris; M25.522 Pain in left elbow; M25.561 Pain in right knee; R63.4 Abnormal weight loss
CPT/HCPCS: 90471; 90686; 99214

== ENCOUNTER 2023-02-22 12:36 | Outpatient (REF) | payer OTHER, SELFPAY ==
--- NOTE | ~2023-02-22 | XR_ITS ---
EXAMINATION: XR ELBOW, LEFT CLINICAL INFORMATION: Pain in left elbow COMPARISON: None available. TECHNIQUE: AP, lateral, and oblique views of the left elbow. FINDINGS: The bones are diffusely demineralized. Multiple small soft tissue calcifications, some oval, predominantly along the dorsal aspect of the forearm and elbow. Degenerative changes with hypertrophic change at the elbow. XR/XR elbow LT 2V IMPRESSION: Multiple small soft tissue calcifications, some oval, predominantly along the dorsal aspect of the forearm and elbow. Degenerative changes with hypertrophic change at the elbow. Recommend follow-up imaging in 10-14 days if fracture is suspected. Additional imaging with CT scan or MRI should be considered for better visualization as these modalities are much more sensitive for detection of fracture or other underlying pathology.
--- NOTE | ~2023-02-22 | XR_ITS ---
EXAMINATION: XR KNEE, RIGHT CLINICAL INFORMATION: Pain in right knee COMPARISON: July 21, 2019 TECHNIQUE: Two views of the right knee. FINDINGS: The bones are diffusely demineralized. Trace joint effusion. Quadriceps enthesophyte. Mild to moderate medial and lateral compartment narrowing. Small medial and lateral marginal osteophytes. Vascular calcifications. XR/XR knee RT 2V IMPRESSION: Mild to moderate degenerative changes.
[2023-02-22 13:01] LABS: MANUAL DIFF FLAG NO
[2023-02-22 13:41] LABS: Appearance Urine Clear; Color Urine Yellow; Glucose Urine UA Negative (Negative); Leukocyte Esterase Urine Trace (Negative); Nitrite Urine Negative (Negative); PH 5.5 (5.0-9.0); Specific Gravity - Urine 1.025 (1.005-1.025); UMIC TRIGGER UA YES; Urine Blood Small (1+) (Negative); Urine Ketones Trace mg/dL (Negative); Urine Protein Negative (Neg-Trace)
[2023-02-22 13:47] LABS: Bacteria Urine Trace (None Seen); Hyaline Casts Urine 0-2 /LPF (0-2); RBC Urine >20 /HPF (0-2); WBC Urine 0-5 /HPF (0-5)
[2023-02-22 13:48] LABS: Basophils Percent Auto 0.4 % (0-2); Eosinophils Absolute Auto 0.1 X10*3/uL (0.0-0.4); Eosinophils Percent Auto 1.6 % (0-4); Hematocrit 36.7 % (37.0-47.0); Hemoglobin 12.2 g/dl (12.0-16.0); Imm Gran Abs Auto 0.02 X10*3/uL (0.00-0.03); Imm Gran Pct Auto 0.3 % (0.0-0.4); Lymphocytes Absolute Auto 2.3 X10*3/uL (1.2-4.9); Lymphocytes Percent Auto 31.2 % (20-40); Mean Corpuscular HGB Conc 33.2 g/dl (31.0-35.0); Mean Corpuscular Hemoglobin 29.5 pg (27.0-33.0); Mean Corpuscular Volume 88.6 fL (80.0-98.0); Mean Platelet Volume 9.7 fL (9.4-12.3); Monocytes Absolute Auto 0.8 X10*3/uL (0.1-1.2); Monocytes Percent Auto 11.1 % (2-11); Neutrophils Absolute Auto 4.1 x10*3/uL (2.0-8.3); Neutrophils Percent Auto 55.4 % (45-73); Platelet Count 241 X10*3/uL (160-400); Red Blood Count 4.14 X10*6/uL (4.20-5.50); Red Cell Distribution Width 12.8 % (11.0-16.0); White Blood Count 7.4 X10*3/uL (4.8-10.8)
[2023-02-22 14:26] LABS: Alanine Aminotransferase 5 U/L (0-31); Albumin Level 4.1 g/dL (3.5-5.0); Alkaline Phosphatase 70 U/L (39-117); Anion Gap 12 (12-20); Aspartate Amino Transferase 13 U/L (5-31); Bilirubin Total 0.5 mg/dL (0.0-1.0); Blood Urea Nitrogen 21 mg/dL (9-16); Calcium 10.2 mg/dL (8.4-10.2); Carbon Dioxide 27 mmol/L (22-29); Chloride 107 mmol/L (96-108); Estimated Glomerular Filt Rate 60; Glucose Random 95 mg/dL (60-115); Potassium 4.1 mmol/L (3.3-5.1); Sodium 142 mmol/L (135-145); Total Protein 7.6 g/dL (6.5-8.0)
[2023-02-22 14:32] LABS: Free T4 (Free Thyroxine) 1.07 ng/dL (0.71-1.85); Thyroid Stimulating Hormone 0.31 uIU/mL (0.32-4.0)
== END 2023-02-22 12:37 | disposition home or self-care (01) ==
LOC: HO.LAB 12:36
PROVIDERS: PCP Internal Medicine; Visit Provider Internal Medicine
DX: M25.522 Pain in left elbow (principal); M25.561 Pain in right knee; E03.9 Hypothyroidism, unspecified
CPT/HCPCS: 36415; 73070; 73560; 80053; 81001; 84439; 84443; 85025

== ENCOUNTER 2023-03-23 08:20 | Outpatient (REF) | payer OTHER, SELFPAY ==
--- NOTE | ~2023-03-23 | US_ITS ---
EXAMINATION: US RETROPERITONEAL LIMITED (RENAL ONLY) CLINICAL INFORMATION: Hematuria, unspecified. COMPARISON: Renals only ultrasound dated 01/16/2018. KUB dated 04/13/2015. Ultrasound abdomen complete dated 06/04/2014. CT abdomen and pelvis without and with contrast dated 09/26/2012. TECHNIQUE: Real-time imaging of the kidneys. Limited visualization due to bowel gas. FINDINGS: RIGHT KIDNEY: 9.9 x 4.1 x 4.8 cm (SAG x AP x TRV). No hydronephrosis. No renal calculi. Renal cortical thickness is normal. Limited visualization. LEFT KIDNEY: 10.2 x 4.2 x 6.1 cm (SAG x AP x TRV). No hydronephrosis. No renal calculi. Renal cortical thickness is normal. Limited visualization. Left renal lateral lower pole 1.5 x 1.4 cm cyst with benign features. There is no indication for follow-up imaging. US/US renal BI IMPRESSION: No hydronephrosis. No renal calculi. Limited visualization. CT scan with intravenous contrast could be considered for further evaluation for this patient with hematuria, based on clinical assessment.
== END 2023-03-23 08:21 | disposition home or self-care (01) ==
LOC: HO.US 08:20
PROVIDERS: PCP Internal Medicine; Visit Provider Internal Medicine
DX: R31.9 Hematuria, unspecified (principal)
CPT/HCPCS: 76775

== ENCOUNTER 2023-05-10 13:14 | Outpatient (AMB) | payer OTHER, SELFPAY ==
--- NOTE | 2023-05-10 13:17 | MHC.PC.OV ---
Vital Signs 05/10/23 13:18 Height 5 ft 5 in Weight 179 lb 2 oz BMI 29.8 BP 100/60 Blood Pressure Location Lt brachial Position Sitting Pulse 54 Pulse Source Pulse Oximeter Pulse Oximetry (%) 94 Oxygen Delivery Method Room Air Intake Visit Reasons: weight loss, weakness, fatigue Intake Note: Patient is here to follow up on weight loss, weakness, fatigue. Complaint of swelling of the both eye ongoing for three weeks and unsteady gait. Mountain Guide Required: Yes Mountain Guide Language: Chemical Analytical Sampler Name: Carmen (Granddaughter) Information Interpreted: non-clinical & clinical Broadcast Engineer: Present Accompanied by: Grand Child Allergies aspirin [ASPIRIN] Allergy (Unknown, Verified 05/21/23 05:41) RASH, swelling atorvastatin Allergy (Unknown, Verified 05/21/23 05:41) Unknown ibuprofen [From Motrin] Allergy (Unknown, Verified 05/21/23 05:41) rash,swelling lisinopril Allergy (Unknown, Verified 05/21/23 05:41) Unknown simvastatin Allergy (Unknown, Verified 05/21/23 05:41) interaction with cardizem Medication List - Last Reconciled 05/10/23 by Per Mohan MD acetaminophen ER (Mapap Arthritis Pain) 650 mg PO Q8H PRN amitriptyline 25 mg PO DAILY calcium carbonate (Oyster Shell Calcium) 500 mg PO DAILY 90 days carvedilol 6.25 mg PO BID 90 days cholecalciferol (vitamin D3) 25 mcg PO DAILY clopidogrel 75 mg PO DAILY cyanocobalamin (vitamin B-12) (Vitamin B-12) 1,000 mcg PO DAILY diltiazem HCl 240 mg PO DAILY levothyroxine 100 mcg PO DAILY meloxicam 7.5 mg PO DAILY 90 days netarsudil 0.02% (Rhopressa) 0 drps ophthalmic (eye) rosuvastatin 10 mg PO DAILY 30 days spironolactone 25 mg PO DAILY timolol maleate 0.5% 0 drps ophthalmic (eye) Tobacco use date assessed: 05/10/23 Fall risk assessment: No Falls in past year Last assessed Fall Risk: 05/10/23 Dental Screening Dental Screen Date: 05/10/23 Did you have a dental visit in the last 12 months?: No Did you have a dental problem in the last 6 months where you did not have access to dental care?: No Was dental information given to patient?: No HPI weight loss, weakness, fatigue HPI Details 78-year-old female presents to the office for a sick visit. I am covering for her primary care provider. Patient is stating her complaints in Armenian and her daughter is translating. Patient is complaining of redness in both eyes for the past 3 weeks. Minimal discomfort. Vision is okay. She has history of glaucoma in the past. Currently taking 3 different kinds of drops for glaucoma. Also in March she was told that she has a cataract in should get surgery done. [facility] Medical History Colonoscopy refused Colon cancer screening Coronary artery disease Knee osteoarthritis Congestive heart failure Migraine Peripheral vascular disease Benign hematuria SVT (supraventricular tachycardia) Hypercholesterolemia Vitamin D deficiency Asthma Hypothyroid Hypertension Obesity (BMI 30-39.9) Peroneal neuropathy Surgical History History of appendectomy History of lumpectomy of right breast History of tonsillectomy History of total abdominal hysterectomy and bilateral salpingo-oophorectomy History of tubal ligation Family History Father No problems noted. Mother Hypertension CVD (cardiovascular disease) Social History Housing: Apartment Alcohol intake: never Patient Tobacco Use Status: Never used Tobacco e-Cigarette/Vaping Use: Never Used Second Hand Smoke Exposure: No service: No Current occupational status: retired and disabled Cognitive needs: Yes (walker) Hearing needs: No Vision needs: Yes (glasses) Questionnaire Thrive Questionnaire Date Thrive assessed: 06/20/22 ANJU-7 AMB Questionnaire ANJU-7 Date ANJU - 7 assessed: 06/20/22 Source: Developed by Drs. Gautam Marshall, Virginia Parish, Solo Mesa and colleagues, with an educational puja from [employer]. Physical exam (Primary Care) Vital Signs: Last Vital Signs Pulse 54 05/10/23 13:18 BP 100/60 05/10/23 13:18 Pulse Ox 94 05/10/23 13:18 Oxygen Delivery Method Room Air 05/10/23 13:18 BMI result Body Mass Index 29.8 Tobacco/Smoking Status: Tobacco use Status Tobacco use date assessed 05/10/23 05/10/23 13:26 Patient Tobacco Use Status Never used Tobacco 05/10/23 13:26 e-Cigarette/Vaping Use Never Used 05/10/23 13:26 Thrive Assessment: Date of Thrive Assessment Date Thrive assessed 06/20/22 05/10/23 13:26 Const General: cooperative and healthy appearing Nutritional Appearance: well nourished Orientation/consciousness: patient oriented x3 Limitations: no limitations HENMT Head: Yes normal to inspection Eyes Other: Right and left eyes: Conjunctival congestion. Cornea is clear. Pupils reactive to light. No digital tenderness. General: appearance normal, both eyes and all related structures Neck Neck: Yes normal visual inspection Chest Chest palpation & inspection: normal palpation of entire chest wall Resp Effort & Inspection: normal respiratory effort Neuro General: patient oriented x3 Assessment and Plan Assessment & Plan (1) Redness of both eyes: Code(s): H57.89 - Other specified disorders of eye and adnexa Plan: Erythromycin ointment ordered. With a prior history of glaucoma patient was encouraged to see her manufacturing area manager. Patient has had weight loss since last office visit. Blood work has been ordered. A follow-up appointment in 3 weeks has been scheduled. Medications: New erythromycin 0.5 inches ophthalmic (eye) TID 1 g 0RF Coding Level of Care Code Est Pt Level 4 (98503) Diagnoses Redness of both eyes H57.89
[2023-05-10 13:18] VITALS: BP 100/60; PULSE 54; O2SAT 94; BMI 29.8
== END 2023-05-10 14:21 | disposition home or self-care (01) ==
PROVIDERS: PCP Internal Medicine; Visit Provider Internal Medicine
DX: H57.89 Other specified disorders of eye and adnexa (principal)
CPT/HCPCS: 99214

== ENCOUNTER 2023-06-05 09:23 | Outpatient (REF) | payer OTHER, SELFPAY ==
[2023-06-05 10:13] LABS: Hematocrit 37.7 % (37.0-47.0); Hemoglobin 12.4 g/dl (12.0-16.0); Mean Corpuscular HGB Conc 32.9 g/dl (31.0-35.0); Mean Corpuscular Hemoglobin 29.8 pg (27.0-33.0); Mean Corpuscular Volume 90.6 fL (80.0-98.0); Platelet Count 218 X10*3/uL (160-400); Red Blood Count 4.16 X10*6/uL (4.20-5.50); Red Cell Distribution Width 13.1 % (11.0-16.0); White Blood Count 7.3 X10*3/uL (4.8-10.8)
[2023-06-05 10:48] LABS: Erythrocyte Sedimentation Rate 23 MM/HR (0-20)
[2023-06-05 11:06] LABS: Alanine Aminotransferase 11 U/L (0-31); Albumin Level 3.9 g/dL (3.5-5.0); Alkaline Phosphatase 72 U/L (39-117); Anion Gap 10 (12-20); Aspartate Amino Transferase 13 U/L (5-31); Bilirubin Direct 0.1 mg/dL (0.0-0.5); Bilirubin Total 0.4 mg/dL (0.0-1.0); Blood Urea Nitrogen 20 mg/dL (9-16); Calcium 9.9 mg/dL (8.4-10.2); Carbon Dioxide 31 mmol/L (22-29); Chloride 107 mmol/L (96-108); Cholesterol 238 mg/dL (<200); Estimated Glomerular Filt Rate 55; Glucose Random 106 mg/dL (60-115); HDL Cholesterol 34 mg/dL (>40); LDL Cholesterol Calculated 154 mg/dL (<100); Potassium 4.2 mmol/L (3.3-5.1); Sodium 144 mmol/L (135-145); Thyroid Stimulating Hormone 1.17 uIU/mL (0.32-4.0); Total Protein 7.6 g/dL (6.5-8.0); Triglycerides 254 mg/dL (<150)
== END 2023-06-05 09:24 | disposition home or self-care (01) ==
LOC: HO.LAB 09:23
PROVIDERS: Absent Provider Internal Medicine; PCP Internal Medicine; Visit Provider Internal Medicine
DX: R63.4 Abnormal weight loss (principal)
CPT/HCPCS: 36415; 80048; 80061; 80076; 84443; 85027; 85652

== ENCOUNTER 2023-06-11 09:50 | Outpatient (AMB) | payer OTHER, SELFPAY ==
[2023-06-11 09:58] VITALS: BP 128/72; PULSE 63; O2SAT 97; BMI 29.6
--- NOTE | 2023-06-11 09:58 | MHC.PC.OV ---
Vital Signs 06/11/23 09:58 Height 5 ft 5 in Weight 178 lb 0.4 oz BMI 29.6 BP 128/72 Blood Pressure Location Lt brachial Position Sitting Pulse 63 Pulse Source Pulse Oximeter Pulse Oximetry (%) 97 Oxygen Delivery Method Room Air Intake Visit Reasons: 3 month f/u Intake Note: Patient is here to follow up on follow up Special Assets Officer Required: No Allergies aspirin [ASPIRIN] Allergy (Unknown, Verified 06/11/23 10:02) RASH, swelling atorvastatin Allergy (Unknown, Verified 06/11/23 10:02) Unknown ibuprofen [From Motrin] Allergy (Unknown, Verified 06/11/23 10:02) rash,swelling lisinopril Allergy (Unknown, Verified 06/11/23 10:02) Unknown simvastatin Allergy (Unknown, Verified 06/11/23 10:02) interaction with cardizem Medication List - Last Reconciled 06/11/23 by Rashid Bailon MD acetaminophen ER (Mapap Arthritis Pain) 650 mg PO Q8H PRN amitriptyline 25 mg PO DAILY calcium carbonate (Oyster Shell Calcium) 500 mg PO DAILY 90 days carvedilol 6.25 mg PO BID 90 days cholecalciferol (vitamin D3) 25 mcg PO DAILY clopidogrel 75 mg PO DAILY cyanocobalamin (vitamin B-12) (Vitamin B-12) 1,000 mcg PO DAILY diltiazem HCl 240 mg PO DAILY erythromycin 0.5 inches ophthalmic (eye) TID levothyroxine 100 mcg PO DAILY meloxicam 7.5 mg PO DAILY 90 days netarsudil 0.02% (Rhopressa) 0 drps ophthalmic (eye) rosuvastatin 10 mg PO DAILY 30 days spironolactone 25 mg PO DAILY timolol maleate 0.5% 0 drps ophthalmic (eye) Tobacco use date assessed: 06/11/23 Fall risk assessment: No Falls in past year Last assessed Fall Risk: 06/11/23 Dental Screening Dental Screen Date: 06/11/23 HPI 3 month f/u HPI Details 78-year-old obese female with hypertension hypothyroidism asthma hypercholesterolemia coronary artery disease last seen in February 2023. Patient's mammogram is up-to-date bone density is up-to-date. Review of the notes was in the Urgent [facility] April for tiredness and fatigue had redness in the eyes takes drops for glaucoma antibiotic ointment for the eyes given. Bladder ultrasound done showing no stones no hydronephrosis. No nausea no vomiting no chest pains no shortness a breath no bowel bladder symptoms. Patient does walk and does not complain of any chest pain. As for the weight loss patient states has appetite does eat but does not intentionally want to lose the weight. With the hematuria advised to get a CT scan done and repeat the urinalysis. If the hematuria persist we will get Urology. At the last moment I was told that patient will be undergoing a cataract surgery for June. Will order for the EKG. With the age though patient is at intermediate risk . Workup pending COUNTS INCLUDE 234 BEDS AT THE [facility] Medical History (Updated 06/11/23 @ 10:26 by Rashid Bailon MD) Colon cancer screening Colonoscopy refused Coronary artery disease Knee osteoarthritis Congestive heart failure Migraine Peripheral vascular disease Benign hematuria SVT (supraventricular tachycardia) Hypercholesterolemia Vitamin D deficiency Asthma Hypothyroid Hypertension Obesity (BMI 30-39.9) Peroneal neuropathy Surgical History History of appendectomy History of lumpectomy of right breast History of tonsillectomy History of total abdominal hysterectomy and bilateral salpingo-oophorectomy History of tubal ligation Family History Father No problems noted. Mother Hypertension CVD (cardiovascular disease) Social History Housing: Apartment Alcohol intake: never Patient Tobacco Use Status: Never used Tobacco e-Cigarette/Vaping Use: Never Used Second Hand Smoke Exposure: No service: No Current occupational status: retired and disabled Cognitive needs: Yes (walker) Hearing needs: No Vision needs: Yes (glasses) Questionnaire Thrive Questionnaire Date Thrive assessed: 06/11/23 ANJU-7 AMB Questionnaire ANJU-7 Date ANJU - 7 assessed: 06/11/23 Source: Developed by Drs. Gautam Marshall, Virginia Parish, [place] and colleagues, with an educational puja from [employer] Physical exam (Primary Care) Vital Signs: Last Vital Signs Pulse 63 06/11/23 09:58 BP 128/72 06/11/23 09:58 Pulse Ox 97 06/11/23 09:58 Oxygen Delivery Method Room Air 06/11/23 09:58 BMI result Body Mass Index 29.6 Tobacco/Smoking Status: Tobacco use Status Tobacco use date assessed 06/11/23 06/11/23 10:00 Patient Tobacco Use Status Never used Tobacco 06/11/23 10:00 e-Cigarette/Vaping Use Never Used 06/11/23 10:00 Thrive Assessment: Date of Thrive Assessment Date Thrive assessed 06/11/23 06/11/23 10:06 Const General: alert; No acute distress Eyes Conjunctivae: conjunctivae normal Resp Auscultation: clear to auscultation bilaterally Cardio Rate: regular rate Rhythm: regular rhythm GI Other: guaiac negative Inspection: Yes normal to inspection Extrem General: Yes normal to inspection and No edema Assessment and Plan Assessment & Plan (1) Hematuria: Code(s): R31.9 - Hematuria, unspecified Plan: Will further work this up. Ct scan , another urine test (2) Loss of weight: Code(s): R63.4 - Abnormal weight loss Plan: Will continue to work this up. referral to Gastroenterology (3) Coronary artery disease: Comment: nstemi September 2017 SVT, January 2018 hypertrophic cardiomyopathy, December 2018 normal LV function mild hypertrophy, Holter normal December 2018, December 2019 echo normal ejection fraction with septal hypertrophy a symmetric mild left atrial enlargement Lexiscan stress test July 2022 negative Code(s): I25.10 - Atherosclerotic heart disease of citizen [place] coronary artery without angina pectoris Qualifiers: Coronary Disease-Associated Artery/Lesion type: citizen [place] artery [place] vs. transplanted heart: citizen [place] heart Associated angina: without angina Qualified Code(s): I25.10 - Atherosclerotic heart disease of citizen [place] coronary artery without angina pectoris Plan: Control the cholesterol, weight, blood pressure. Concern cholesterol has gone really high. refill done for her cholesterol med (4) Hypercholesterolemia: Code(s): E78.00 - Pure hypercholesterolemia, unspecified Plan: Avoid fried foods, chicken skin, eggs, butter margarine, pastries and meat. Be it pork or beef they have a lot of cholesterol LDL goal of less than 70 and triglyceride of less than 150 (5) Hypertension: Code(s): I10 - Essential (primary) hypertension Qualifiers: Hypertension type: essential hypertension Qualified Code(s): I10 - Essential (primary) hypertension Plan: Continue with blood pressure medication. Decrease salt intake and exercise presently on diltiazem 240 mg once a day carvedilol 6.25 mg twice a day and spironolactone (6) Hypothyroid: Code(s): E03.9 - Hypothyroidism, unspecified Qualifiers: Hypothyroidism type: acquired Qualified Code(s): E03.9 - Hypothyroidism, unspecified Plan: Continue with thyroid medication (7) Colon cancer screening: Code(s): Z12.11 - Encounter for screening for malignant neoplasm of colon Plan: referral to GI done Orders: Orders Creatinine Today R31.9 - Hematuria, unspecified CT abdomen pelvis wo/w IV con Today R31.9 - Hematuria, unspecified Blood Urea Nitrogen Today R31.9 - Hematuria, unspecified UA CC w/rflx Micro + Cult Today R30.0 - Dysuria, R31.9 - Hematuria, unspecified ECG 12 lead EKG Today I25.10 - Atherosclerotic heart disease of citizen [place] coronary artery without angina pectoris XR chest 2V Today J45.20 - Mild intermittent asthma, uncomplicated Referrals Gastroenterology Referral R63.4 - Abnormal weight loss, Z12.11 - Encounter for screening for malignant neoplasm of colon Coding Level of Care Code Est Pt Level 4 (47266) Diagnoses Hematuria R31.9 Loss of weight R63.4 Coronary artery disease involving citizen [place] coronary artery of citizen [place] heart without angina pectoris I25.10 Coronary Disease-Associated Artery/Lesion type: citizen [place] artery [place] vs. transplanted heart: citizen [place] heart Associated angina: without angina Hypercholesterolemia E78.00 Essential hypertension I10 Hypertension type: essential hypertension Acquired hypothyroidism E03.9 Hypothyroidism type: acquired Colon cancer screening Z12.11
== END 2023-06-11 10:44 | disposition home or self-care (01) ==
PROVIDERS: PCP Internal Medicine; Visit Provider Internal Medicine
DX: R31.9 Hematuria, unspecified (principal); R63.4 Abnormal weight loss; I25.10 Atherosclerotic heart disease of native coronary artery without angina pectoris; E78.00 Pure hypercholesterolemia, unspecified; I10 Essential (primary) hypertension; E03.9 Hypothyroidism, unspecified; Z12.11 Encounter for screening for malignant neoplasm of colon
CPT/HCPCS: 99214

== ENCOUNTER 2023-06-11 11:02 | Outpatient (REF) | payer OTHER, SELFPAY ==
--- NOTE | ~2023-06-11 | XR_ITS ---
EXAMINATION: XR CHEST CLINICAL INFORMATION: Mild intermittent asthma, uncomplicated. COMPARISON: Chest of 01/09/2018. TECHNIQUE: 2 views of the chest were obtained. FINDINGS: There is no gross pneumothorax. Atherosclerotic aortic calcifications. Dextroscoliosis of the thoracic spine with advanced multilevel degenerative changes. Significant pleural effusion. Mild linear opacities in the lower left lung and lingula redemonstrated, likely representing scar/atelectasis and less likely an infectious/inflammatory process. XR/XR chest 2V IMPRESSION: Mild linear opacities in the lower left lung and lingula redemonstrated, likely representing scar/atelectasis and less likely an infectious/inflammatory process.
--- NOTE | 2023-06-11 11:17 | ECG_ITS ---
Test Reason : ASCD Blood Pressure : / mmHG Vent. Rate : 060 BPM Atrial Rate : 060 BPM P-R Int : 176 ms QRS Dur : 104 ms QT Int : 426 ms P-R-T Axes : 055 003 125 degrees QTc Int : 426 ms Normal sinus rhythm Incomplete right bundle branch block Moderate voltage criteria for LVH, may be normal variant ( R in aVL , Madhu product ) ST & T wave abnormality, consider lateral ischemia Abnormal ECG When compared with ECG of 11-SEP-2017 23:58, No significant change was found Referred By: Rashid Bailon Electronically Signed By:ABIGAIL FIGUEROA MD
[2023-06-11 11:32] LABS: Appearance Urine Cloudy; Color Urine Yellow; Glucose Urine UA Negative (Negative); Leukocyte Esterase Urine Moderate (2+) (Negative); Nitrite Urine Negative (Negative); PH 5.5 (5.0-9.0); UMIC TRIGGER UACC YES; Urine Blood Small (1+) (Negative); Urine Ketones Trace mg/dL (Negative); Urine Protein Negative (Neg-Trace)
[2023-06-11 12:00] LABS: Bacteria Urine 1+ (None Seen); Hyaline Casts Urine 0-2 /LPF (0-2); UACC Culture Trigger YES
[2023-06-11 12:36] LABS: Blood Urea Nitrogen 21 mg/dL (9-16); Estimated Glomerular Filt Rate 47
[2023-06-11 13:26] LABS: Thyroid Stimulating Hormone 1.09 uIU/mL (0.32-4.0)
== END 2023-06-11 11:03 | disposition home or self-care (01) ==
LOC: HO.LAB 11:02
PROVIDERS: PCP Internal Medicine; Visit Provider Internal Medicine
DX: I25.10 Atherosclerotic heart disease of native coronary artery without angina pectoris (principal); R31.9 Hematuria, unspecified; E03.9 Hypothyroidism, unspecified; J45.20 Mild intermittent asthma, uncomplicated
CPT/HCPCS: 36415; 71046; 81001; 82565; 84443; 84520; 87086; 93005

== ENCOUNTER → 2023-06-11 11:17 | Outpatient (BNV) | payer OTHER, SELFPAY | PROVIDERS: PCP Internal Medicine; Visit Provider Internal Medicine Cardiovascular Disease | DX: R94.31 Abnormal electrocardiogram [ECG] [EKG] (principal) | CPT/HCPCS: 93010 ==

== ENCOUNTER 2023-07-24 09:32 | Outpatient (REF) | payer OTHER, SELFPAY | END 2023-07-24 09:33 | disposition home or self-care (01) | LOC: HO.MAMMO 09:32 | PROVIDERS: PCP Internal Medicine; Visit Provider Internal Medicine | DX: Z12.31 Encounter for screening mammogram for malignant neoplasm of breast (principal) | CPT/HCPCS: 77063; 77067 ==

== ENCOUNTER → 2023-07-24 10:15 | Outpatient (BNV) | payer OTHER, SELFPAY | PROVIDERS: PCP Internal Medicine; Visit Provider Radiology Diagnostic Radiology | DX: Z12.31 Encounter for screening mammogram for malignant neoplasm of breast (principal) | CPT/HCPCS: 77063; 77067 ==

== ENCOUNTER 2023-07-25 09:47 | Outpatient (REF) | payer OTHER, SELFPAY ==
--- NOTE | ~2023-07-25 | CT_ITS ---
EXAMINATION: CT ABDOMEN AND PELVIS WITHOUT AND WITH CONTRAST CLINICAL INFORMATION: Hematuria. COMPARISON: CT abdomen and pelvis 09/26/2012. TECHNIQUE: Multidetector volumetric imaging was performed of the abdomen and pelvis before and after the IV administration of 85 mL of Omnipaque 350 intravenous contrast. Sagittal and coronal reformatted images were obtained on the technologist's workstation. This CT examination was performed using dose optimization techniques as appropriate, variously including the following: *Automated exposure control *Adjustment of mA and/or kV according to patient size (this includes techniques or standardized protocols for targeted exams where dose is matched to indication/reason for exam; i.e. extremities or head) *Use of iterative reconstruction technique DLP: 797 mGy-cm FINDINGS: LUNG BASES: Motion artifact obscures the lung bases. No suspicious mass is seen. LIVER, GALLBLADDER, AND BILIARY TREE: The liver is normal in size, shape, and attenuation. No focal hepatic lesion or biliary ductal dilatation is present. The gallbladder is unremarkable with no evidence of radiopaque gallstones, gallbladder wall thickening, or obvious pericholecystic inflammatory changes. PANCREAS: No discrete pancreatic mass. No pancreatic ductal dilatation. SPLEEN: Unremarkable ADRENAL GLANDS: Right adrenal mass measures 2.8 x 1.5 cm, previously 2.4 x [address] protocol does not allow for washout evaluation. The contrast attenuation is not diagnostic of a lipid rich adenoma indolent growth over 11 years with support this being almost certainly a benign lipid poor adenoma. The left adrenal gland appears normal.. KIDNEYS AND URETERS: No nephrolithiasis on noncontrast evaluation. Nephrograms are symmetric. Urinary excretion is symmetric. No hydroureteronephrosis. No filling defect in the collecting system. Nonenhancing simple cyst in the lower pole left kidney. No follow-up imaging is recommended. BLADDER: There is asymmetric wall thickening along the right posterior inferior bladder wall measuring up to 1.1 cm in thickness. This is nonspecific and may be due to under distention but a sessile mass cannot be entirely excluded. GASTROINTESTINAL TRACT: The small and large bowel are normal in caliber. The appendix appears normal. Mild sigmoid diverticulosis without evidence of acute diverticulitis. ABDOMINAL WALL: Small broad-based fat-containing umbilical hernia. LYMPH NODES: No lymphadenopathy. Subtle lesion along the right psoas muscle appears to be venous in origin related to the gonadal system and is unchanged compared to 2012. I do not think this is a worrisome lymph node. VASCULAR: Atherosclerosis without aortic aneurysm. PELVIC VISCERA: Unremarkable OSSEOUS STRUCTURES: No suspicious osseous lesions. Moderate degenerative changes in the spine. CT/CT abdomen pelvis wo/w IV con IMPRESSION: No nephrolithiasis, suspicious renal mass, or filling defect in the collecting system. Equivocal mass at the right bladder base possibly due to under distention but in the presence of hematuria, correlation with cystoscopy and urine cytology is recommended. Minimal increase in right adrenal mass over 11 years. 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 No follow-up imaging is recommended. Consider endocrine workup if clinically appropriate. Fleischner guidelines were followed.
[2023-07-25] MEDS: iohexoL 350 MG/ML 100 ML INFUS..BTL 85 ML IV (11:22)
[2023-07-26 06:25] LABS: Creatinine POC 0.7 mg/dL (0.5-1.4); GFR POC > 60
== END 2023-07-25 09:48 | disposition home or self-care (01) ==
LOC: HO.CT 09:47
PROVIDERS: PCP Internal Medicine; Visit Provider Internal Medicine
DX: R31.9 Hematuria, unspecified (principal)
CPT/HCPCS: 74178; 82565; Q9967

== ENCOUNTER 2023-07-31 09:14 | Outpatient (AMB) | payer OTHER, SELFPAY ==
--- NOTE | 2023-07-31 09:29 | A.OFFVIS_ITS ---
Intake Vital Signs 07/31/23 09:30 Height 5 ft 5 in Weight 178 lb 9.191 oz BMI 29.7 BP 120/76 Blood Pressure Location Lt brachial Position Sitting Pulse 63 Intake Visit Reasons: 1 yr f/up Intake Note: 1 year follow-up with ekg feeling good Maintenance Journeyman Required: Yes Maintenance Journeyman Name: [facility] [place] Allergies aspirin [ASPIRIN] Allergy (Unknown, Verified 06/11/23 10:02) RASH, swelling atorvastatin Allergy (Unknown, Verified 06/11/23 10:02) Unknown ibuprofen [From Motrin] Allergy (Unknown, Verified 06/11/23 10:02) rash,swelling lisinopril Allergy (Unknown, Verified 06/11/23 10:02) Unknown simvastatin Allergy (Unknown, Verified 06/11/23 10:02) interaction with cardizem Medication List - Last Reconciled 07/31/23 by Valentin Vanegas MD acetaminophen ER (Mapap Arthritis Pain) 650 mg PO Q8H PRN amitriptyline 25 mg PO DAILY calcium carbonate (Oyster Shell Calcium) 500 mg PO DAILY 90 days carvedilol 6.25 mg PO BID 90 days cholecalciferol (vitamin D3) 25 mcg PO DAILY clopidogrel 75 mg PO DAILY cyanocobalamin (vitamin B-12) (Vitamin B-12) 1,000 mcg PO DAILY diltiazem HCl 240 mg PO DAILY erythromycin 0.5 inches ophthalmic (eye) TID levothyroxine 100 mcg PO DAILY meloxicam 7.5 mg PO DAILY 90 days netarsudil 0.02% (Rhopressa) 0 drps ophthalmic (eye) rosuvastatin 10 mg PO DAILY 30 days spironolactone 25 mg PO DAILY timolol maleate 0.5% 0 drps ophthalmic (eye) HPI HPI Comments History of Present Illness Details Julia comes for follow-up. History was obtained with help of billboard erector in the room. Patient is doing well from cardiac perspective. She has not had any episodes of palpitations or prolonged fast heart rate. Feels well. No symptoms of heart failure. Denies any progressive shortness of breath, orthopnea, PND. Takes all her medications. Says she is unhappy about the number of medications she is taking. She gets dry mouth with it. Denies any lightheadedness, syncope. Blood pressure at home is currently well controlled. Denies is exertional chest pain. Myocardial perfusion imaging last year was within normal limits [facility] Medical History (Updated 06/11/23 @ 10:26 by Rashid Bailon MD) Colon cancer screening Colonoscopy refused Coronary artery disease Knee osteoarthritis Congestive heart failure Migraine Peripheral vascular disease Benign hematuria SVT (supraventricular tachycardia) Hypercholesterolemia Vitamin D deficiency Asthma Hypothyroid Hypertension Obesity (BMI 30-39.9) Peroneal neuropathy Surgical History History of appendectomy History of lumpectomy of right breast History of tonsillectomy History of total abdominal hysterectomy and bilateral salpingo-oophorectomy History of tubal ligation Family History Father No problems noted. Mother Hypertension CVD (cardiovascular disease) Social History Housing: Apartment Alcohol intake: never Patient Tobacco Use Status: Never used Tobacco e-Cigarette/Vaping Use: Never Used Second Hand Smoke Exposure: No service: No Current occupational status: retired and disabled Cognitive needs: Yes (walker) Hearing needs: No Vision needs: Yes (glasses) Review of Systems Const Denies chills, Denies fatigue, Denies fever(s), Denies frequent falls, Denies weakness, Denies weight gain and Denies weight loss ENT Denies dizziness Card Denies chest pain, Denies leg edema, Denies lightheadedness, Denies palpitations, Denies dyspnea, Denies dyspnea on exertion, Denies orthopnea and Denies other (loss of consciousness) Resp Denies cough, Denies dyspnea and Denies dyspnea on exertion GI Denies hematochezia and Denies change in stool character Musc Denies abnormal gait, Denies muscle weakness, Denies numbness, Denies radiating pain into limb and Denies tingling Neuro Denies abnormal gait, Denies dizziness, Denies frequent falls, Denies numbness, Denies tingling and Denies weakness Endo Denies fatigue and Denies palpitations Physical Exam Vital Signs: Last Vital Signs Pulse 63 07/31/23 09:30 BP 120/76 07/31/23 09:30 BMI result Body Mass Index 29.7 Office Procedures EKG Details: EKG shows normal sinus rhythm with diffuse T-wave inversions in the anterolateral leads as well as high lateral leads most likely suggestive of repolarization abnormality [id number], Complete Assessment & Plan Assessment & Plan (1) Congestive heart failure: Code(s): I50.9 - Heart failure, unspecified Qualifiers: Heart failure type: diastolic Heart failure chronicity: chronic Qualified Code(s): I50.32 - Chronic diastolic (congestive) heart failure Plan: Prior history of diastolic heart failure, clinically euvolemic and well compensated without any loop diuretic therapy at this point time. She does have underlying mild hypertensive heart disease related to longstanding hypertension. Since control of her blood pressure heart failure syndrome has improved. She is functionally doing well. Encouraged to continue to participate in physical activity as tolerated. Continue aggressive control blood pressure. Advised to monitor blood pressure at home maintain a log. Goal blood pressure less than 130/84. Daily weight monitoring avoidance of salt loading was discussed. Continue to partake in regular physical activity. Advised to call me with worsening symptoms. (2) SVT (supraventricular tachycardia): Code(s): I47.1 - Supraventricular tachycardia Plan: Supraventricular tachycardia which has remained suppressed on dual therapy with carvedilol as well as Cardizem therapy. Continue the same. Importance of medi rasheed therapy was discussed. Avoidance of stimulants was discussed. Stress mitigation strategies was discussed advised to call me with worsening symptoms. Follow up in the clinic in 1 year's time, sooner p.r.n.. Thank you for allowing me to partake in her care Coding Level of Care Code Est Pt Level 4 (29453) Diagnoses Chronic diastolic congestive heart failure I50.32 Heart failure type: diastolic Heart failure chronicity: chronic SVT (supraventricular tachycardia) I47.1 CPT Codes EKG - CPT: 34001-[id number], Complete ([id number])
[2023-07-31 09:30] VITALS: BP 120/76; PULSE 63; BMI 29.7
== END 2023-07-31 09:54 | disposition home or self-care (01) ==
PROVIDERS: Visit Provider Internal Medicine Cardiovascular Disease
DX: I50.32 Chronic diastolic (congestive) heart failure (principal); I47.10 Supraventricular tachycardia, unspecified
CPT/HCPCS: 93010; 99214

== ENCOUNTER → 2023-07-31 09:14 | Outpatient (BNVA) | payer OTHER, SELFPAY | PROVIDERS: Visit Provider Internal Medicine Cardiovascular Disease | DX: I50.32 Chronic diastolic (congestive) heart failure (principal); I47.10 Supraventricular tachycardia, unspecified | CPT/HCPCS: 93005; 99212 ==

== ENCOUNTER 2023-09-11 14:10 | Outpatient (AMB) | payer OTHER, SELFPAY ==
--- NOTE | 2023-09-11 14:15 | A.OFFPC_ITS ---
Vital Signs 09/11/23 14:16 Height 5 ft 5 in Weight 179 lb BMI 29.8 BP 120/62 Blood Pressure Location Lt brachial Position Sitting Pulse 65 Pulse Source Pulse Oximeter Pulse Oximetry (%) 98 Oxygen Delivery Method Room Air Intake Visit Reasons: Weight loss hematuria Allergies aspirin [ASPIRIN] Allergy (Unknown, Verified 09/11/23 14:16) RASH, swelling atorvastatin Allergy (Unknown, Verified 09/11/23 14:16) Unknown ibuprofen [From Motrin] Allergy (Unknown, Verified 09/11/23 14:16) rash,swelling lisinopril Allergy (Unknown, Verified 09/11/23 14:16) Unknown simvastatin Allergy (Unknown, Verified 09/11/23 14:16) interaction with cardizem Tobacco use date assessed: 06/11/23 Fall risk assessment: No Falls in past year Last assessed Fall Risk: 09/11/23 Dental Screening Dental Screen Date: 09/11/23 Did you have a dental visit in the last 12 months?: No Did you have a dental problem in the last 6 months where you did not have access to dental care?: No Was dental information given to patient?: No HPI Weight loss hematuria HPI Details 78-year-old overweight female with a his tory of coronary artery disease hypertension hypercholesterolemia hypothyroidism last seen in May 2023. Patient was referred to Gastroenterology for colon cancer screening and was concerned also about the weight loss. Patient follows up with Cardiology history of congestive heart failure euvolemic history of SVT on carvedilol and Cardizem with a history of hematuria CT scan done is a question of a mass on the right bladder base and advised to get Urology 09/24/2023.cataract surgery Dr. Campa 06/2023 and planned eyelid surgery [facility] Medical History (Updated 06/11/23 @ 10:26 by Rashid Bailon MD) Colon cancer screening Colonoscopy refused Coronary artery disease Knee osteoarthritis Congestive heart failure Migraine Peripheral vascular disease Benign hematuria SVT (supraventricular tachycardia) Hypercholesterolemia Vitamin D deficiency Asthma Hypothyroid Hypertension Obesity (BMI 30-39.9) Peroneal neuropathy Surgical History (Updated 09/11/23 @ 15:33 by Rashid Bailon MD) History of cataract surgery History of appendectomy History of lumpectomy of right breast History of tonsillectomy History of total abdominal hysterectomy and bilateral salpingo-oophorectomy History of tubal ligation Family History Father No problems noted. Mother Hypertension CVD (cardiovascular disease) Social History Housing: Apartment Alcohol intake: never Patient Tobacco Use Status: Never used Tobacco e-Cigarette/Vaping Use: Never Used Second Hand Smoke Exposure: No service: No Current occupational status: retired and disabled Cognitive needs: Yes (walker) Hearing needs: No Vision needs: Yes (glasses) Questionnaire PHQ-9 Over the last 2 weeks, how often have you been bothered by any of the following problems? 1. Little interest or pleasure in doing things: not at all 2. Feeling down, depressed, or hopeless: not at all 3. Trouble falling or staying asleep, or sleeping too much: not at all 4. Feeling tired or having little energy: not at all 5. Poor appetite or overeating: not at all 6. Feeling bad about yourself - or that you are a failure or have let yourself or your family down: not at all 7. Trouble concentrating on things, such as reading the newspaper or watching television: not at all 8. Moving or speaking so slowly that other people could have noticed. Or the opposite - being so fidgety or restless that you have been moving around a lot more than usual: not at all 9. Thoughts that you would be better off or of hurting yourself in some way: not at all Total score: 0 Depression Screening Interpretation: Negative Depression Screening Done: Yes 58135 - PHQ-9 Billing: Yes Source: Developed by Drs. Gautam Marshall, Virginia Parish, Solo Mesa and colleagues, with an educational puja from [employer]. Thrive Questionnaire Date Thrive assessed: 06/11/23 AUDIT C Alcohol Use Questionnaire (AUDIT-C) 1. How often do you have a drink containing alcohol?: Never 2. How many drinks containing alcohol do you have on a typical day when you are drinking?: 1 or 2 3. How often do you have six or more drinks on one occasion?: Never Total Score: 0 Score Reviewed/Action Taken: No ANJU-7 AMB Questionnaire ANJU-7 Date ANJU - 7 assessed: 06/11/23 Source: Developed by Drs. Gautam Marshall, Virginia Parish, Solo [place]a and colleagues, with an educational puja from [employer]. Physical exam (Primary Care) Vital Signs: Last Vital Signs Pulse 65 09/11/23 14:16 BP 120/62 09/11/23 14:16 Pulse Ox 98 09/11/23 14:16 Oxygen Delivery Method Room Air 09/11/23 14:16 BMI result Body Mass Index 29.8 Tobacco/Smoking Status: Tobacco use Status Tobacco use date assessed 06/11/23 09/11/23 14:17 Patient Tobacco Use Status Never used Tobacco 09/11/23 14:17 e-Cigarette/Vaping Use Never Used 09/11/23 14:17 PHQ-9: PHQ-9 Score PHQ-9: Total score 0 09/11/23 15:26 Depression Screening Interpretation: Negative Thrive Assessment: Date of Thrive Assessment Date Thrive assessed 06/11/23 09/11/23 14:17 Const General: alert; No acute distress Eyes Conjunctivae: conjunctivae normal Resp Auscultation: clear to auscultation bilaterally Cardio Rate: regular rate Rhythm: regular rhythm GI Inspection: Yes normal to inspection Extrem General: Yes normal to inspection and No edema Assessment and Plan Assessment & Plan (1) Colon cancer screening: Code(s): Z12.11 - Encounter for screening for malignant neoplasm of colon Plan: Patient is reminded about gastroenterology referral (2) Hematuria: Code(s): R31.9 - Hematuria, unspecified Plan: Had a CT scan done there is a question of bladder base mass and advised to see Urology (3) Hypertension: Code(s): I10 - Essential (primary) hypertension Qualifiers: Hypertension type: essential hypertension Qualified Code(s): I10 - Essential (primary) hypertension Plan: Continue with blood pressure medication. Decrease salt intake and exercise takes carvedilol 6.25 mg twice a day diltiazem 240 mg once a day (4) Hypothyroid: Code(s): E03.9 - Hypothyroidism, unspecified Qualifiers: Hypothyroidism type: acquired Qualified Code(s): E03.9 - Hypothyroidism, unspecified Plan: Continue with thyroid medication (5) Asthma: Code(s): J45.909 - Unspecified asthma, uncomplicated Qualifiers: Asthma complication type: uncomplicated Asthma persistence: intermittent Asthma severity: mild Qualified Code(s): J45.20 - Mild intermittent asthma, uncomplicated Plan: This is stable without inhalers. (6) Hypercholesterolemia: Code(s): E78.00 - Pure hypercholesterolemia, unspecified Plan: Avoid fried foods, chicken skin, eggs, butter margarine, pastries and meat. Be it pork or beef they have a lot of cholesterol LDL goal of less than 70 and triglyceride of less than 150 on rosuvastatin 10 mg once a day (7) Coronary artery disease: Comment: nstemi September 2017 SVT, January 2018 hypertrophic cardiomyopathy, December 2018 normal LV function mild hypertrophy, Holter normal December 2018, December 2019 echo normal ejection fraction with septal hypertrophy a symmetric mild left atrial enlargement Lexiscan stress test July 2022 negative Code(s): I25.10 - Atherosclerotic heart disease of [place] coronary artery without angina pectoris Qualifiers: Associated angina: without angina Coronary Disease-Associated Artery/Lesion type: [place] artery [place] vs. transplanted heart: [place] heart Qualified Code(s): I25.10 - Atherosclerotic heart disease of [place] coronary artery without angina pectoris Plan: Control the cholesterol, weight, blood pressure, diabetes on clopidogrel 75 mg once a day Orders: Orders Complete Blood Count Auto Diff 3 Months E78.00 - Pure hypercholesterolemia, unspecified Free T4 (Free Thyroxine) 3 Months E78.00 - Pure hypercholesterolemia, unspecified Lipid Panel 3 Months E78.00 - Pure hypercholesterolemia, unspecified Thyroid Stimulating Hormone 3 Months E78.00 - Pure hypercholesterolemia, unspecified Vitamin B12 and Folate 3 Months E78.00 - Pure hypercholesterolemia, unspecified Vitamin D 25-OH Total 3 Months E78.00 - Pure hypercholesterolemia, unspecified Comprehensive Met. Panel 3 Months E78.00 - Pure hypercholesterolemia, unspecified B Type Natriuretic Peptide 3 Months E78.00 - Pure hypercholesterolemia, unspecified Coding Level of Care Code Est Pt Level 4 (31287) Diagnoses Colon cancer screening Z12.11 Hematuria R31.9 Essential hypertension I10 Hypertension type: essential hypertension Acquired hypothyroidism E03.9 Hypothyroidism type: acquired Mild intermittent asthma without complication J45.20 Asthma complication type: uncomplicated Asthma persistence: intermittent Asthma severity: mild Hypercholesterolemia E78.00 Coronary artery disease involving [place] coronary artery of [place] heart without angina pectoris I25.10 Associated angina: without angina Coronary Disease-Associated Artery/Lesion type: [place] artery [place] vs. transplanted heart: [place] heart
[2023-09-11 14:16] VITALS: BP 120/62; PULSE 65; O2SAT 98; BMI 29.8
== END 2023-09-11 15:37 | disposition home or self-care (01) ==
PROVIDERS: PCP Internal Medicine; Visit Provider Internal Medicine
DX: Z12.11 Encounter for screening for malignant neoplasm of colon (principal); R31.9 Hematuria, unspecified; I10 Essential (primary) hypertension; E03.9 Hypothyroidism, unspecified; J45.20 Mild intermittent asthma, uncomplicated; E78.00 Pure hypercholesterolemia, unspecified; I25.10 Atherosclerotic heart disease of native coronary artery without angina pectoris
CPT/HCPCS: 99214

== ENCOUNTER 2023-09-24 13:20 | Outpatient (AMB) | payer OTHER, SELFPAY ==
--- NOTE | 2023-09-24 13:26 | MHC.OFFVIS ---
Intake Visit Reasons: microscopic hematuria Intake Note: New Patient presents for initial visit for microscopic hematuria Urology Medications: none Blood Thinner: clopidogrel Secondary English Teacher Required: Yes Accompanied by: Unknown Allergies aspirin [ASPIRIN] Allergy (Unknown, Verified 09/24/23 14:33) RASH, swelling atorvastatin Allergy (Unknown, Verified 09/24/23 14:33) Unknown ibuprofen [From Motrin] Allergy (Unknown, Verified 09/24/23 14:33) rash,swelling lisinopril Allergy (Unknown, Verified 09/24/23 14:33) Unknown simvastatin Allergy (Unknown, Verified 09/24/23 14:33) interaction with cardizem Medication List - Last Reconciled 09/24/23 by WENDI Herman acetaminophen ER (Mapap Arthritis Pain) 650 mg PO Q8H PRN amitriptyline 25 mg PO DAILY calcium carbonate (Oyster Shell Calcium) 500 mg PO DAILY 90 days carvedilol 6.25 mg PO BID 90 days cholecalciferol (vitamin D3) 25 mcg PO DAILY clopidogrel 75 mg PO DAILY cyanocobalamin (vitamin B-12) (Vitamin B-12) 1,000 mcg PO DAILY diltiazem HCl CD 240 mg PO DAILY erythromycin 0.5 inches ophthalmic (eye) TID levothyroxine 100 mcg PO DAILY meloxicam 7.5 mg PO DAILY 90 days netarsudil 0.02% (Rhopressa) 0 drps ophthalmic (eye) rosuvastatin 10 mg PO DAILY 30 days spironolactone 25 mg PO DAILY timolol maleate 0.5% 0 drps ophthalmic (eye) HPI Comments Details: Julia is a 78-year-old Belgian-speaking female patient of Dr. Bailon was accompanied by her granddaughter at today's office visit. She has a past medical history of coronary artery disease, osteoarthritis, congestive heart failure, migraines, PVD, benign hematuria, SVT, hypercholesteremia, vitamin-D deficiency, asthma, hypothyroidism, hypertension, obesity, and neuropathy. She presents to the office today as a new patient for microscopic hematuria. In discussion with the patient today she reports a longstanding history of microscopic hematuria for over 30-40 years. She denies ever having followed up with Urology. She reports having having had recent CT urogram with PCP. These results were reviewed with the patient today. No nephrolithiasis, suspicious renal mass, or filling defect in the collecting system. Equivocal mass at the right bladder base possibly due to under distention but in the presence of hematuria correlation with cystoscopy and urine cytology is recommended per radiology report. This was discussed with the patient and her granddaughter at length at today's visit. Discussed at length potential causes for recurrent microscopic hematuria. She denies any previous smoking history and or chemical exposure. She denies any bothersome urinary issues or concerns. She denies urinary urgency, urinary frequency, incontinence, nocturia, hematuria, dysuria, foul smelling urine, changes to urinary stream, flank pain, fever, and or chills. She is happy with her current voiding parameters. In office urinalysis results reviewed with the patient today 2+ microscopic hematuria. She otherwise offers no other issues or concerns at this time. [facility] Medical History Colon cancer screening Colonoscopy refused Coronary artery disease Knee osteoarthritis Congestive heart failure Migraine Peripheral vascular disease Benign hematuria SVT (supraventricular tachycardia) Hypercholesterolemia Vitamin D deficiency Asthma Hypothyroid Hypertension Obesity (BMI 30-39.9) Peroneal neuropathy Surgical History History of cataract surgery History of appendectomy History of lumpectomy of right breast History of tonsillectomy History of total abdominal hysterectomy and bilateral salpingo-oophorectomy History of tubal ligation Family History Father No problems noted. Mother Hypertension CVD (cardiovascular disease) Social History Housing: Apartment Alcohol intake: never Patient Tobacco Use Status: Never used Tobacco e-Cigarette/Vaping Use: Never Used Second Hand Smoke Exposure: No service: No Current occupational status: retired and disabled Cognitive needs: Yes (walker) Hearing needs: No Vision needs: Yes (glasses) Review of Systems Const Reports no additional complaints Eyes Reports no additional complaints ENT Reports no additional complaints Card Reports as per HPI Resp Reports as per HPI GI Reports as per HPI Reports as per HPI Musc Reports as per HPI Neuro Reports no additional complaints Psych Reports no additional complaints Endo Reports as per HPI Tarun/Lymph Reports no additional complaints Aller/Immun Reports no additional complaints Physical Exam Const General: cooperative, healthy appearing, comfortable, no acute distress, well developed, alert and awake Orientation/consciousness: patient oriented x3 Limitations: no limitations HEENT Head: Yes normal to inspection, Yes normocephalic and Yes atraumatic Ears: hearing grossly normal bilaterally Eyes General: appearance normal, both eyes and all related structures Neck Neck: Yes normal visual inspection and Yes trachea midline Chest Chest palpation & inspection: normal inspection of the chest Resp Effort & Inspection: normal respiratory effort and able to speak in complete sentences Cardio Rate: regular rate GI Inspection: Yes normal to inspection General: Yes no CVA tenderness Back/Spine/Pelvis Back: no CVA tenderness Skin General skin exam: no rashes or lesions noted Neuro General: patient oriented x3 Extrem General: Yes normal to inspection Psych Appearance: grossly normal and well kempt Mental Status: mental status grossly normal Speech and movement: Normal speech and movement present and Clear speech present Affect: normal affect Attitude: cooperative Thought process: Normal thought process present Thought content: Normal thought content present Insight: Fair insight present (Psych) Judgement: Fair judgement present (Psych) Results AMB Urinalysis, Automated UA Leukoctes 0 Adriana/uL Last Edit by [facility] on 09/24/23 14:09 UA Nitrite Negative Last Edit by [facility] on 09/24/23 14:09 UA Urobilinogen 0.2 mg/dL Last Edit by [facility] on 09/24/23 14:09 UA Protein 15 mg/dL Last Edit by [facility] on 09/24/23 14:09 UA pH 6.0 Last Edit by [facility] on 09/24/23 14:09 UA Blood 80 Stephen/uL Last Edit by [facility] on 09/24/23 14:09 UA Specific [place] 1.025 Last Edit by [facility] on 09/24/23 14:09 UA Ketone Positive Last Edit by [facility] on 09/24/23 14:09 UA Bilirubin 1 mg/dL Last Edit by [facility] on 09/24/23 14:09 UA Glucose 0 mg/dL Last Edit by [facility] on 09/24/23 14:09 Results Reviewed Results Reviewed: Laboratory Last Values Urine pH (Auto) 6.0 05/13/24 13:28 Specific [place] (Auto) 1.025 09/24/23 13:28 Urine Protein (Auto) 15 mg/dL 09/24/23 13:28 Glucose (UA)(Auto) 0 mg/dL 09/24/23 13:28 Urine Ketones (Auto) Positive 09/24/23 13: Urine Blood (Auto) 80 Stephen/uL 09/24/23 13:28 Urine Nitrite (Auto) Negative 09/24/23 13:28 Urine Bilirubin (Auto) 1 mg/dL 09/24/23 13:28 Urine Urobilinogen (Auto) 0.2 mg/dL 09/24/23 13:28 Leukocyte Esterase (Auto) 0 Adriana/uL 09/24/23 13:28 Date of Service: 07/25/23 EXAMINATION: CT ABDOMEN AND PELVIS WITHOUT AND WITH CONTRAST FINDINGS: LUNG BASES: Motion artifact obscures the lung bases. No suspicious mass is seen. LIVER, GALLBLADDER, AND BILIARY TREE: The liver is normal in size, shape, and attenuation. No focal hepatic lesion or biliary ductal dilatation is present. The gallbladder is unremarkable with no evidence of radiopaque gallstones, gallbladder wall thickening, or obvious pericholecystic inflammatory changes. PANCREAS: No discrete pancreatic mass. No pancreatic ductal dilatation. SPLEEN: Unremarkable ADRENAL GLANDS: Right adrenal mass measures 2.8 x 1.5 cm, previously 2.4 x [address] protocol does not allow for washout evaluation. The contrast attenuation is not diagnostic of a lipid rich adenoma indolent growth over 11 years with support this being almost certainly a benign lipid poor adenoma. The left adrenal gland appears normal.. KIDNEYS AND URETERS: No nephrolithiasis on noncontrast evaluation. Nephrograms are symmetric. Urinary excretion is symmetric. No hydroureteronephrosis. No filling defect in the collecting system. Nonenhancing simple cyst in the lower pole left kidney. No follow-up imaging is recommended. BLADDER: There is asymmetric wall thickening along the right posterior inferior bladder wall measuring up to 1.1 cm in thickness. This is nonspecific and may be due to under distention but a sessile mass cannot be entirely excluded. GASTROINTESTINAL TRACT: The small and large bowel are normal in caliber. The appendix appears normal. Mild sigmoid diverticulosis without evidence of acute diverticulitis. ABDOMINAL WALL: Small broad-based fat-containing umbilical hernia. LYMPH NODES: No lymphadenopathy. Subtle lesion along the right psoas muscle appears to be venous in origin related to the gonadal system and is unchanged compared to 2013. I do not think this is a worrisome lymph node. VASCULAR: Atherosclerosis without aortic aneurysm. PELVIC VISCERA: Unremarkable OSSEOUS STRUCTURES: No suspicious osseous lesions. Moderate degenerative changes in the spine. IMPRESSION: No nephrolithiasis, suspicious renal mass, or filling defect in the collecting system. Equivocal mass at the right bladder base possibly due to under distention but in the presence of hematuria, correlation with cystoscopy and urine cytology is recommended. Minimal increase in right adrenal mass over 11 years. 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 No follow-up imaging is recommended. Consider endocrine workup if clinically appropriate. Fleischner guidelines were followed. Assessment & Plan Assessment & Plan (1) Hematuria: Code(s): R31.9 - Hematuria, unspecified Category: Medical Plan In office urinalysis results reviewed with the patient today; as noted above; will send for urine cytology. Discussed at length potential causes for persistent microscopic hematuria. Discussed further workup with in office cystoscopy versus surveillance monitoring; risks and benefits of these interventions were discussed at length. Recent CT results reviewed with the patient today; as noted above. Patient otherwise denies any bothersome urinary issues or concerns. She reports be happy with current voiding parameters. Will schedule for in office cystoscopy as discussed Follow-up per doctor's orders; or sooner with any issues, concerns, and or questions. Orders: Orders Urine Cytology Today R31.9 - Hematuria, unspecified AMB Urinalysis Automated Today Z13.9 - Encounter for screening, unspecified Patient Instructions: The patient had an opportunity to ask questions regarding the treatment plan. All questions were answered. Physical exam, labs, and imaging were discussed and reviewed in detail. As well as risks, benefits, and discussion of treatment choices. No major barriers to understanding were identified. The patient expressed understanding and agreement with the above treatment plan. The patient was made aware they should contact our office by phone for worsening of their current condition, the appearance of new symptoms, or with any questions or concerns. Compliance is encouraged with any medications and follow up testing that is ordered. It is a privilege to be allowed the opportunity to participate in? your urological care.? Again, if you have any questions or concerns If you have any questions or concerns please do not hesitate to contact me. The office is [phone]. This note is constructed using voice recognition software. While every effort has been made to ensure accuracy mountain guide errors may have been included. Yours sincerely, DOYLE Herman-SONAL Coding Level of Care Code New Pt Level 3 (43409) Diagnoses Hematuria R31.9
== END 2023-09-24 14:38 | disposition home or self-care (01) ==
PROVIDERS: PCP Internal Medicine; Visit Provider Nurse Practitioner Family
DX: Z13.9 Encounter for screening, unspecified (principal); R31.9 Hematuria, unspecified
CPT/HCPCS: 99203

== ENCOUNTER 2023-09-24 13:20 | Outpatient (REF) | payer OTHER, SELFPAY ==
[2023-09-24 16:45] LABS: Urine Cytology See Pathology rpt
== END 2023-09-24 13:21 | disposition home or self-care (01) ==
LOC: HO.LNP 13:20
PROVIDERS: PCP Internal Medicine; Visit Provider Nurse Practitioner Family
DX: R31.9 Hematuria, unspecified (principal)
CPT/HCPCS: 81003; 88112; 99202

== ENCOUNTER 2023-11-07 09:42 | Outpatient (AMB) | payer OTHER, SELFPAY ==
--- NOTE | 2023-11-07 09:46 | A.OFFVIS_ITS ---
Intake Visit Reasons: cysto Intake Note: Pt presents to the office today for a cystoscopy. Urology Medications: none Blood Thinner: clopidogrel Cystoscopy: [id number] Exp: 06/14/26 Hyperbaric Technician Required: Yes Accompanied by: Unknown Allergies aspirin [ASPIRIN] Allergy (Unknown, Verified 11/07/23 09:46) RASH, swelling atorvastatin Allergy (Unknown, Verified 11/07/23 09:46) Unknown ibuprofen [From Motrin] Allergy (Unknown, Verified 11/07/23 09:46) rash,swelling lisinopril Allergy (Unknown, Verified 11/07/23 09:46) Unknown simvastatin Allergy (Unknown, Verified 11/07/23 09:46) interaction with ulysses DAVE Comments Details: Julia is a pleasant Kinyarwanda-speaking female. She is a patient of Dr. Jefferson. She seen for the following urologic conditions - microscopic hematuria Accompanied by granddaughter Longstanding history of microscopic hematuria Recent imaging with equivocal mass and right bladder base but otherwise normal Urine cytology normal Cystoscopy today shows urethral atrophy and narrowing Dilation performed Cystoscopy performed normal Estrace cream provided Follow-up 6 months [facility] Medical History Colon cancer screening Colonoscopy refused Coronary artery disease Knee osteoarthritis Congestive heart failure Migraine Peripheral vascular disease Benign hematuria SVT (supraventricular tachycardia) Hypercholesterolemia Vitamin D deficiency Asthma Hypothyroid Hypertension Obesity (BMI 30-39.9) Peroneal neuropathy Surgical History History of cataract surgery History of appendectomy History of lumpectomy of right breast History of tonsillectomy History of total abdominal hysterectomy and bilateral salpingo-oophorectomy History of tubal ligation Family History Father No problems noted. Mother Hypertension CVD (cardiovascular disease) Social History Housing: Apartment Alcohol intake: never Patient Tobacco Use Status: Never used Tobacco e-Cigarette/Vaping Use: Never Used Second Hand Smoke Exposure: No service: No Current occupational status: retired and disabled Cognitive needs: Yes (walker) Hearing needs: No Vision needs: Yes (glasses) Review of Systems Const Denies chills and Denies fever(s) Card Reports no additional complaints and Denies syncope Resp Denies cough GI Denies abdominal pain and Denies heartburn Reports as per HPI and Denies change in libido Neuro Denies syncope Psych Denies change in libido Endo Denies change in libido Physical Exam Const General: cooperative, healthy appearing, comfortable and no acute distress Orientation/consciousness: patient oriented x3 HEENT Face and sinus: Yes normal facial exam Mouth: moist mucous membranes Neck Neck: Yes normal visual inspection, Yes full ROM and Yes trachea midline Chest Chest palpation & inspection: normal inspection of the chest Resp Effort & Inspection: normal respiratory effort, able to speak in complete sentences and no respiratory distress GI Inspection: Yes normal to inspection Back/Spine/Pelvis Cervical Spine: normal cervical lordosis Thoracic/Lumbar Spine: thoracic and lumbar spine normal to inspection Skin General skin exam: no rashes or lesions noted Neuro General: patient oriented x3, gait normal, tone normal and moves all extremities Extrem General: Yes normal to inspection and Yes capillary refill normal Office Procedures Cystoscopy Consent Discussed risk and benefit or proposed procedure with the patient. Information consent for procedure given to the patient. Discussed technical aspects, risks, benefits and alternatives in full. Addressed all of the patient's questions and concerns regarding the procedure. The patient demonstrated knowledge and understanding. They wish to proceed with this procedure. Preparation The patient was prepped in the usual manner. A car retarder operator was present and in the room. Genitalia was prepped with betadine solution in a sterile manner. Lidocaine Jelly 2% was placed into the urethra and 16Fr flexible Olympus cystoscope was inserted into the meatus after adequate lubrication. Procedure Meatus atrophied with narrowing. Dilatation performed Urethra normal Bladder examination with retroflexion of cystoscope Bladder Orifices normal shape and position Trigone normal Bladder Capacity - Trabeculations - Cellule Formation - Diverticulum Formation - Mucosal Erythema - Bladder Tumor - [id number] DISPOSABLE SCOPE URO-G FLEXIBLE SCOPE Procedure code (CPT) selection complete Office Meds lidocaine HCl 2 % mucosal jelly in applicator Performing Provider: Salvatore Valdes MD Performing Location: [facility] [place] [facility] Administered by: Jesse Bach LPN on 11/07/23 10:24 Dose Route Admin Location Dispensed Lot Number Expiration Date [facility] Cigarette Machine Operator 10 mL intra-urethral 10 mL nitrofurantoin monohydrate/macrocrystals 100 mg capsule Performing Provider: Salvatore Valdes MD Performing Location: [facility] [place] [facility] Administered by: Jesse Bach LPN on 11/07/23 10:24 Dose Route Admin Location Dispensed Lot Number Expiration Date [facility] Cigarette Machine Operator 100 mg PO 1 cap naproxen 500 mg tablet Performing Provider: Salvatore Valdes MD Performing Location: [facility] [place] [facility] Documented (not given) by: Jesse Bach LPN on 11/07/23 10:24 Reason Not Given: Patient Refused Results AMB Urinalysis, Automated UA Leukoctes 15 Adriana/uL Last Edit by Yessenia Gómez CMA on 11/07/23 09:53 UA Nitrite Negative Last Edit by Yessenia Gómez, JESUS on 11/07/23 09:53 UA Urobilinogen 1 mg/dL Last Edit by Yessenia Gómez CMA on 11/07/23 09:53 UA Protein 15 mg/dL Last Edit by Yessenia Gómez CMA on 11/07/23 09:53 UA pH 6.0 Last Edit by Yessenia Gómez CMA on 11/07/23 09:53 UA Blood 80 Stephen/uL Last Edit by Yessenia Gómez CMA on 11/07/23 09:53 UA Specific [place] 1.025 Last Edit by Yessenia Gómez CMA on 11/07/23 09:53 UA Ketone Positive Last Edit by Yessenia Gómez CMA on 11/07/23 09:53 UA Bilirubin 1 mg/dL Last Edit by Yessenia Gómez CMA on 11/07/23 09:53 UA Glucose 0 mg/dL Last Edit by Yessenia Gómez CMA on 11/07/23 09:53 Results Reviewed Results Reviewed: Laboratory Last Values Urine pH (Auto) 6.0 11/07/23 09:48 Specific [place] (Auto) 1.025 11/07/23 09:48 Urine Protein (Auto) 15 mg/dL 11/07/23 09:48 Glucose (UA)(Auto) 0 mg/dL 11/07/23 09:48 Urine Ketones (Auto) Positive 11/07/23 09:48 Urine Blood (Auto) 80 Stephen/uL 11/07/23 09:48 Urine Nitrite (Auto) Negative 11/07/23 09:48 Urine Bilirubin (Auto) 1 mg/dL 11/07/23 09:48 Urine Urobilinogen (Auto) 1 mg/dL 11/07/23 09:48 Leukocyte Esterase (Auto) 15 Adriana/uL 11/07/23 09:48 Assessment & Plan Assessment & Plan (1) Congenital meatal stenosis: Code(s): 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.33 - Congenital stricture of urinary meatus Category: Medical Plan Trial Estrace cream to urethral Orders: Orders AMB Urinalysis Automated 11/07/23 Z13.9 - Encounter for screening, unspecified AMB Cystoscopy 11/07/23 R30.0 - Dysuria, R31.9 - Hematuria, unspecified Medications: New estradiol 0.01%(0.1mg/gram) pea-sized to urethra 3 times a week 30 days 42.5 grams 2RF N36.2 - Urethral caruncle, N39.0 - Urinary tract infection, site not specified, N95.2 - Postmenopausal atrophic vaginitis, Q64.33 - Congenital stricture of urinary meatus Patient Instructions: Imaging studies, laboratory and physical exam results were discussed and reviewed in detail. No major barriers to patient understanding were identified. An opportunity to ask questions regarding the treatment plan was provided. All questions were answered. The patient expressed understanding and agreement with the above treatment plan. The patient is aware they should contact our office by phone for worsening of their current condition or the appearance of new urologic symptoms. Compliance is encouraged with any medications and followup testing that is ordered. It is a privilege to participate in the urologic care of your patient. If you have any questions or concerns regarding treatment for the above conditions, or other urologic issues, please do not hesitate to contact me. The office telephone contact is [phone]. This note is constructed using voice recognition software. While every effort has been made to ensure accuracy pharmacy helper errors may have been included. Yours sincerely, Dr Salvatore Valdes MD, [facility] - Urology Providers of Expert, Compassionate Care for the Genitourinary System Coding Level of Care Code Est Pt Level 4 (19296) Diagnoses Congenital meatal stenosis Q64.33 CPT Codes Cystoscopy - CPT: 64795-[id number] ([id number])
== END 2023-11-07 11:09 | disposition home or self-care (01) ==
PROVIDERS: PCP Internal Medicine; Visit Provider Urology
DX: R31.9 Hematuria, unspecified (principal); R30.0 Dysuria; Z13.9 Encounter for screening, unspecified
CPT/HCPCS: 52000

== ENCOUNTER → 2023-11-07 09:42 | Outpatient (BNVA) | payer OTHER, SELFPAY | PROVIDERS: PCP Internal Medicine; Visit Provider Urology | DX: Q64.33 Congenital stricture of urinary meatus (principal) | CPT/HCPCS: 52000; 81003 ==

== ENCOUNTER 2024-01-23 06:52 | Outpatient (REF) | payer OTHER, SELFPAY ==
[2024-01-23 07:12] LABS: MANUAL DIFF FLAG NO
[2024-01-23 07:33] LABS: Basophils Percent Auto 0.5 % (0-2); Eosinophils Absolute Auto 0.1 X10*3/uL (0.0-0.4); Eosinophils Percent Auto 1.5 % (0-4); Hematocrit 37.4 % (37.0-47.0); Hemoglobin 12.4 g/dl (12.0-16.0); Imm Gran Abs Auto 0.02 X10*3/uL (0.00-0.03); Imm Gran Pct Auto 0.3 % (0.0-0.4); Lymphocytes Absolute Auto 2.3 X10*3/uL (1.2-4.9); Lymphocytes Percent Auto 28.8 % (20-40); Mean Corpuscular HGB Conc 33.2 g/dl (31.0-35.0); Mean Corpuscular Volume 90.6 fL (80.0-98.0); Mean Platelet Volume 9.5 fL (9.4-12.3); Monocytes Absolute Auto 0.8 X10*3/uL (0.1-1.2); Monocytes Percent Auto 10.5 % (2-11); Neutrophils Absolute Auto 4.6 x10*3/uL (2.0-8.3); Neutrophils Percent Auto 58.4 % (45-73); Platelet Count 219 X10*3/uL (160-400); Red Blood Count 4.13 X10*6/uL (4.20-5.50); Red Cell Distribution Width 12.5 % (11.0-16.0); White Blood Count 7.9 X10*3/uL (4.8-10.8)
[2024-01-23 07:51] LABS: B Type Natriuretic Peptide 336 pg/mL (<100)
[2024-01-23 07:53] LABS: Alanine Aminotransferase 16 U/L (0-31); Albumin Level 4.1 g/dL (3.5-5.0); Alkaline Phosphatase 70 U/L (39-117); Anion Gap 12 (12-20); Aspartate Amino Transferase 21 U/L (5-31); Bilirubin Total 0.7 mg/dL (0.0-1.0); Blood Urea Nitrogen 23 mg/dL (9-16); Calcium 10.1 mg/dL (8.4-10.2); Carbon Dioxide 28 mmol/L (22-29); Chloride 107 mmol/L (96-108); Cholesterol 153 mg/dL (<200); Estimated Glomerular Filt Rate > 60; Glucose Random 98 mg/dL (60-115); HDL Cholesterol 43 mg/dL (>40); LDL Cholesterol Calculated 91 mg/dL (<100); Potassium 4.6 mmol/L (3.3-5.1); Sodium 142 mmol/L (135-145); Total Protein 7.6 g/dL (6.5-8.0); Triglycerides 96 mg/dL (<150)
[2024-01-23 08:08] LABS: Free T4 (Free Thyroxine) 0.89 ng/dL (0.71-1.85); Thyroid Stimulating Hormone 0.82 uIU/mL (0.32-4.0); Vitamin D 25-OH Total 33.6 ng/mL (>30)
[2024-01-23 08:10] LABS: Appearance Urine Clear; Color Urine Yellow; Glucose Urine UA Negative (Negative); Leukocyte Esterase Urine Negative (Negative); Nitrite Urine Negative (Negative); UMIC TRIGGER UACC YES; Urine Blood Small (1+) (Negative); Urine Ketones Negative (Negative); Urine Protein Negative (Neg-Trace)
[2024-01-23 08:12] LABS: Bacteria Urine None Seen (None Seen); Hyaline Casts Urine 0-2 /LPF (0-2); Squamous Epithelial Cell Urine 0-2 /HPF (0-2); WBC Urine 0-5 /HPF (0-5)
[2024-01-23 08:21] LABS: Folate 7.3 ng/mL (> or = 4.0); Vitamin B12 770 pg/mL (200-900)
== END 2024-01-23 06:53 | disposition home or self-care (01) ==
LOC: HO.LAB 06:52
PROVIDERS: PCP Internal Medicine; Visit Provider Internal Medicine
DX: E78.00 Pure hypercholesterolemia, unspecified (principal)
CPT/HCPCS: 36415; 80053; 80061; 81001; 81003; 82306; 82607; 82746; 83880; 84439; 84443; 85025

== ENCOUNTER 2024-01-29 08:30 | Outpatient (AMB) | payer OTHER, SELFPAY ==
[2024-01-29 08:35] VITALS: BP 132/72; PULSE 66; O2SAT 92; BMI 30.3
--- NOTE | 2024-01-29 08:35 | A.OFFPC_ITS ---
Vital Signs 01/29/24 08:35 Height 5 ft 5 in Weight 182 lb BMI 30.3 BP 132/72 Blood Pressure Location Lt brachial Position Sitting Pulse 66 Pulse Source Pulse Oximeter Pulse Oximetry (%) 92 Intake Visit Reasons: Hypocholesteremia Allergies aspirin [ASPIRIN] Allergy (Unknown, Verified 01/29/24 08:38) RASH, swelling atorvastatin Allergy (Unknown, Verified 01/29/24 08:38) Unknown ibuprofen [From Motrin] Allergy (Unknown, Verified 01/29/24 08:38) rash,swelling lisinopril Allergy (Unknown, Verified 01/29/24 08:38) Unknown simvastatin Allergy (Unknown, Verified 01/29/24 08:38) interaction with cardizem Tobacco use date assessed: 06/11/23 Fall risk assessment: No Falls in past year Last assessed Fall Risk: 01/29/24 Dental Screening Dental Screen Date: 09/11/23 HPI Hypocholesteremia HPI Details 78-year-old obese female with hypertensi on hematuria hypothyroid asthma hypercholesterolemia coronary artery disease last seen in 09/01/2023. Patient's mammogram is up-to-date bone density up-to-date. Ophthalmology notes diagnosis of ptosis planned conservative repair, patient missed gastroenterology schedule. Patient also followed up with Urology for cystoscopy complaining of hematuria noted urethral atrophy and narrowing dilatation done due to stricture of the urinary meatus. Received also notes from ER for right shoulder pain x-ray showing glenohumeral arthritis. Patient was prescribed meloxicam. 02/28/2024 Planned ptosis surgery . patient's pill come in a bubble pack so pill id done to identify clopidogrel to stop med. round pink pill with E on 1 side and 34 on the other side. discussed that MEloxicam med given from the ER needs to be held 1 week before. yellow round pill with ZC 25 . PAtient deny chest pain and is active . [facility] Medical History (Updated 01/29/24 @ 08:44 by Rashid Bailon MD) COVID-19 virus infection Dysuria Loss of weight Chest pain Elbow pain, left Colon cancer screening Colonoscopy refused Coronary artery disease Knee osteoarthritis Congestive heart failure Migraine Peripheral vascular disease Benign hematuria SVT (supraventricular tachycardia) Hypercholesterolemia Vitamin D deficiency Asthma Hypothyroid Hypertension Obesity (BMI 30-39.9) Peroneal neuropathy Surgical History History of cataract surgery History of appendectomy History of lumpectomy of right breast History of tonsillectomy History of total abdominal hysterectomy and bilateral salpingo-oophorectomy History of tubal ligation Family History Father No problems noted. Mother Hypertension CVD (cardiovascular disease) Social History (Reviewed 11/07/23 @ 09:47 by Yessenia Gómez [facility]) Housing: Apartment Alcohol intake: never Patient Tobacco Use Status: Never used Tobacco Tobacco use type: Cigarette e-Cigarette/Vaping Use: Never Used Second Hand Smoke Exposure: No service: No Current occupational status: retired and disabled Cognitive needs: Yes (walker) Hearing needs: No Vision needs: Yes (glasses) Questionnaire PHQ-9 Over the last 2 weeks, how often have you been bothered by any of the following problems? 1. Little interest or pleasure in doing things: not at all 2. Feeling down, depressed, or hopeless: not at all 3. Trouble falling or staying asleep, or sleeping too much: not at all 4. Feeling tired or having little energy: not at all 5. Poor appetite or overeating: not at all 6. Feeling bad about yourself - or that you are a failure or have let yourself or your family down: not at all 7. Trouble concentrating on things, such as reading the newspaper or watching television: not at all 8. Moving or speaking so slowly that other people could have noticed. Or the opposite - being so fidgety or restless that you have been moving around a lot more than usual: not at all 9. Thoughts that you would be better off or of hurting yourself in some way: not at all Total score: 0 Depression Screening Interpretation: Negative Depression Screening Done: Yes 48297 - PHQ-9 Billing: Yes Source: Developed by Drs. Gautam Marshall, Virginia Parish, [place] and colleagues, with an educational puja from [employer]. Thrive Questionnaire Date Thrive assessed: 06/11/23 Are you currently unemployed and looking for a job?: No AUDIT C Alcohol Use Questionnaire (AUDIT-C) 1. How often do you have a drink containing alcohol?: Never 2. How many drinks containing alcohol do you have on a typical day when you are drinking?: 1 or 2 3. How often do you have six or more drinks on one occasion?: Never Total Score: 0 Score Reviewed/Action Taken: No ANJU-7 AMB Questionnaire ANJU-7 Date ANJU - 7 assessed: 06/11/23 Source: Developed by Drs. Gautam Marshall, Virginia Parish, [employer] and colleagues, with an educational puja from [employer]. Physical exam (Primary Care) Vital Signs: Last Vital Signs Pulse 66 01/29/24 08:35 BP 132/72 01/29/24 08:35 Pulse Ox 92 01/29/24 08:35 BMI result Body Mass Index 30.3 Tobacco/Smoking Status: Tobacco use Status Tobacco use date assessed 06/11/23 01/29/24 08:41 Patient Tobacco Use Status Never used Tobacco 01/29/24 08:41 Tobacco use type Cigarette 01/29/24 08:41 e-Cigarette/Vaping Use Never Used 01/29/24 08:41 PHQ-9: PHQ-9 Score PHQ-9: Total score 0 01/29/24 08:41 Depression Screening Interpretation: Negative Thrive Assessment: Date of Thrive Assessment Date Thrive assessed 06/11/23 01/29/24 08:41 Const General: alert; No acute distress Eyes Conjunctivae: conjunctivae normal Resp Auscultation: clear to auscultation bilaterally Cardio Rate: regular rate Rhythm: regular rhythm GI Inspection: Yes normal to inspection Extrem General: Yes normal to inspection and No edema Assessment and Plan Assessment & Plan (1) Obesity (BMI 30-39.9): Code(s): E66.9 - Obesity, unspecified Plan: Diet and exercise (2) Hypertension: Code(s): I10 - Essential (primary) hypertension Qualifiers: Hypertension type: essential hypertension Qualified Code(s): I10 - Essential (primary) hypertension Plan: Continue with blood pressure medication. Decrease salt intake and exercise continue with carvedilol 6.25 mg twice a day diltiazem 240 mg once a day (3) Hypothyroid: Code(s): E03.9 - Hypothyroidism, unspecified Qualifiers: Hypothyroidism type: acquired Qualified Code(s): E03.9 - Hypothyroidism, unspecified Plan: Continue with thyroid medication (4) Hypercholesterolemia: Code(s): E78.00 - Pure hypercholesterolemia, unspecified Plan: Avoid fried foods, chicken skin, eggs, butter margarine, pastries and meat. Be it pork or beef they have a lot of cholesterol on rosuvastatin 10 mg once a day. On account of coronary artery disease will need LDL below 70 decline change in med and wants to do diet (5) Coronary artery disease: Comment: nstemi September 2017 SVT, January 2018 hypertrophic cardiomyopathy, December 2018 normal LV function mild hypertrophy, Holter normal December 2018, December 2019 echo normal ejection fraction with septal hypertrophy a symmetric mild left atrial enlargement Lexiscan stress test July 2022 negative Code(s): I25.10 - Atherosclerotic heart disease of [place] coronary artery without angina pectoris Qualifiers: Coronary Disease-Associated Artery/Lesion type: [place] artery [place] vs. transplanted heart: [place] heart Associated angina: without angina Qualified Code(s): I25.10 - Atherosclerotic heart disease of [place] coronary artery without angina pectoris Plan: Control the cholesterol, weight, blood pressure, diabetes continue with clopidogrel. (6) Colon cancer screening: Code(s): Z12.11 - Encounter for screening for malignant neoplasm of colon Plan: Reminded about colonoscopy (7) Congenital meatal stenosis: Code(s): Q64.33 - Congenital stricture of urinary meatus Plan: Patient follows up with urology and had dilatation done Coding Level of Care Code Est Pt Level 4 (02244) Diagnoses Obesity (BMI 30-39.9) E66.9 Essential hypertension I10 Hypertension type: essential hypertension Acquired hypothyroidism E03.9 Hypothyroidism type: acquired Hypercholesterolemia E78.00 Coronary artery disease involving [place] coronary artery of [place] heart without angina pectoris I25.10 Coronary Disease-Associated Artery/Lesion type: [place] artery [place] vs. transplanted heart: [place] heart Associated angina: without angina Colon cancer screening Z12.11 Congenital meatal stenosis Q64.33
== END 2024-01-29 09:08 | disposition home or self-care (01) ==
PROVIDERS: PCP Internal Medicine; Visit Provider Internal Medicine
DX: E66.9 Obesity, unspecified (principal); I10 Essential (primary) hypertension; E03.9 Hypothyroidism, unspecified; E78.00 Pure hypercholesterolemia, unspecified; I25.10 Atherosclerotic heart disease of native coronary artery without angina pectoris; Z12.11 Encounter for screening for malignant neoplasm of colon; Q64.33 Congenital stricture of urinary meatus

== ENCOUNTER → 2024-01-29 08:30 | Outpatient (BNVA) | payer OTHER, SELFPAY | PROVIDERS: PCP Internal Medicine; Visit Provider Internal Medicine | DX: E66.9 Obesity, unspecified (principal); I10 Essential (primary) hypertension; E03.9 Hypothyroidism, unspecified; E78.00 Pure hypercholesterolemia, unspecified; I25.10 Atherosclerotic heart disease of native coronary artery without angina pectoris; Q64.33 Congenital stricture of urinary meatus | CPT/HCPCS: 99212 ==

== ENCOUNTER 2024-02-21 14:35 | Outpatient (AMB) | payer OTHER, SELFPAY ==
--- NOTE | 2024-02-21 14:35 | MHC.PC.OV ---
Vital Signs 02/21/24 14:37 Height 5 ft 5 in Weight 184 lb 0.6 oz BMI 30.6 BP 120/62 Blood Pressure Location Lt brachial Position Sitting Pulse 60 Pulse Source Pulse Oximeter Pulse Oximetry (%) 97 Oxygen Delivery Method Room Air Intake Visit Reasons: [facility] bilateral eyelid surg 02/27 Intake Note: Patient is here for a Pre-op for bilateral eyelid surgery scheduled with Dr. Jaqueline Lopez on 02/28/24 Molder Closed Molds Required: No Allergies aspirin [ASPIRIN] Allergy (Unknown, Verified 02/21/24 15:12) RASH, swelling atorvastatin Allergy (Unknown, Verified 02/21/24 15:12) Unknown ibuprofen [From Motrin] Allergy (Unknown, Verified 02/21/24 15:12) rash,swelling lisinopril Allergy (Unknown, Verified 02/21/24 15:12) Unknown simvastatin Allergy (Unknown, Verified 02/21/24 15:12) interaction with cardizem Medication List - Last Reconciled 02/21/24 by Irma Thornton PA-C acetaminophen ER 650 mg PO Q8H PRN amitriptyline 25 mg PO DAILY calcium carbonate (Oyster Shell Calcium) 500 mg PO DAILY 90 days carvedilol 6.25 mg PO BID 90 days cholecalciferol (vitamin D3) 25 mcg PO DAILY clopidogrel 75 mg PO DAILY cyanocobalamin (vitamin B-12) (Vitamin B-12) 1,000 mcg PO DAILY diltiazem HCl CD 240 mg PO DAILY erythromycin 0.5 inches ophthalmic (eye) TID estradiol 0.01%(0.1mg/gram) pea-sized to urethra 3 times a week 30 days levothyroxine 100 mcg PO DAILY meloxicam 7.5 mg PO DAILY 90 days netarsudil 0.02% (Rhopressa) 0 drps ophthalmic (eye) rosuvastatin 10 mg PO DAILY 30 days spironolactone 25 mg PO DAILY timolol maleate 0.5% 0 drps ophthalmic (eye) Tobacco use date assessed: 06/11/23 Fall risk assessment: No Falls in past year Last assessed Fall Risk: 02/21/24 Dental Screening Dental Screen Date: 09/11/23 HPI [facility] bilateral eyelid surg 02/27 HPI Details 78-year-old female with past medical history of hypertension, hematuria, hypothyroid, asthma, hypercholesterolemia, coronary artery disease last seen January 2024 coming in for preoperative exam. Patient is scheduled to have bilateral upper eyelid ptosis repair with [facility]. Patient states she is feeling generally well has no acute concerns today. [facility] Medical History (Updated 02/21/24 @ 15:06 by Irma Thornton PA-C) COVID-19 virus infection Dysuria Loss of weight Chest pain Elbow pain, left Colon cancer screening Colonoscopy refused Coronary artery disease Knee osteoarthritis Congestive heart failure Migraine Peripheral vascular disease Benign hematuria SVT (supraventricular tachycardia) Hypercholesterolemia Vitamin D deficiency Asthma Hypothyroid Hypertension Obesity (BMI 30-39.9) Peroneal neuropathy Surgical History History of cataract surgery History of appendectomy History of lumpectomy of right breast History of tonsillectomy History of total abdominal hysterectomy and bilateral salpingo-oophorectomy History of tubal ligation Family History Father No problems noted. Mother Hypertension CVD (cardiovascular disease) Social History Housing: Apartment Alcohol intake: never Patient Tobacco Use Status: Never used Tobacco Tobacco use type: Cigarette e-Cigarette/Vaping Use: Never Used Second Hand Smoke Exposure: No service: No Current occupational status: retired and disabled Cognitive needs: Yes (walker) Hearing needs: No Vision needs: Yes (glasses) Questionnaire Thrive Questionnaire Date Thrive assessed: 06/11/23 I am a: Patient What is your living situation today?: I have a steady place to live Within the past 12 months, did the food you bought not last and you didn't have the money to get more?: Never true Within the past 12 months, did you worry whether your food would run out before you got money to buy more?: Never true Do you have trouble paying for medicines?: No Do you have trouble getting transportation to medical appointments?: No Do you have trouble paying your heating and electricity bill?: No Do you have trouble taking care of your child, family member or friend?: No Do you have trouble with day-to-day activities such as bathing, preparing meals, shopping, managing finances, etc.?: No Are you currently unemployed and looking for a job?: No Are you interested in more education?: No Please select the resources that you would like help with: None Currently or been in a relationship where the following occur: No concerns reported THRIVE Score: 0 AUDIT C Alcohol Use Questionnaire (AUDIT-C) 1. How often do you have a drink containing alcohol?: Never 2. How many drinks containing alcohol do you have on a typical day when you are drinking?: 1 or 2 3. How often do you have six or more drinks on one occasion?: Never Total Score: 0 Score Reviewed/Action Taken: No ANJU-7 AMB Questionnaire ANJU-7 Date ANJU - 7 assessed: 06/11/23 Source: Developed by Drs. Gautam Marshall, Virginia Parish, Solo [place] and colleagues, with an educational puja from [employer]. Review of Systems Const Denies body aches, Denies chills, Denies fever(s), Denies headache(s) and Denies poor appetite Eyes Reports no additional complaints ENT Denies dysphagia, Denies dizziness, Denies headache(s) and Denies odynophagia Card Denies chest pain, Denies syncope, Denies edema, Denies irregular heart rhythm, Denies lightheadedness and Denies dyspnea Resp Denies cough and Denies dyspnea GI Denies abdominal pain, Denies dysphagia, Denies nausea, Denies odynophagia and Denies vomiting Reports no additional complaints Musc Reports no additional complaints and Denies abnormal gait Skin/Breast Reports system reviewed and no additional complaints, except as documented Neuro Denies abnormal gait, Denies dizziness, Denies syncope and Denies headache(s) Psych Reports no additional complaints Physical exam (Primary Care) Vital Signs: Last Vital Signs Pulse 60 02/21/24 14:37 BP 120/62 02/21/24 14:37 Pulse Ox 97 02/21/24 14:37 Oxygen Delivery Method Room Air 02/21/24 14:37 BMI result Body Mass Index 30.6 Tobacco/Smoking Status: Tobacco use Status Tobacco use date assessed 06/11/23 02/21/24 14:37 Patient Tobacco Use Status Never used Tobacco 02/21/24 14:37 Tobacco use type Cigarette 02/21/24 14:37 e-Cigarette/Vaping Use Never Used 02/21/24 14:37 Thrive Assessment: Date of Thrive Assessment Date Thrive assessed 06/11/23 02/21/24 14:37 Currently or been in a relationship where the following occur: No concerns reported Coding Level of Care Code Est Pt Level 4 (12666) Diagnoses Pre-op evaluation Z01.818 Hypercholesterolemia E78.00 Essential hypertension I10 Hypertension type: essential hypertension Coronary artery disease involving [place] coronary artery of [place] heart without angina pectoris I25.10 Coronary Disease-Associated Artery/Lesion type: [place] artery [place] vs. transplanted heart: [place] heart Associated angina: without angina Assessment & Plan Assessment & Plan (1) Pre-op evaluation: Code(s): Z01.818 - Encounter for other preprocedural examination Category: Medical Plan: Regarding preop clearance, the patient is at moderate risk for proposed surgery due to her age and comorbidities which are well managed at this time. Reviewed with the patient that no surgery is completely free of risk and that this examination is to assist the surgeon in reviewing informed consent. She is nondiabetic, takes no disease modifying drugs, and was advised to discontinue all anticoagulants and NSAIDs 1 week prior to surgery. She has undergone surgery in the past with no complications. Ordered for EKG and will add addendum to preoperative note once testing is completed.?blood work evaluated .? No further workup needed at this time and may proceed with the contemplated procedure.? Thank you very much for letting me participate in the care of this patient (2) Hypercholesterolemia: Code(s): E78.00 - Pure hypercholesterolemia, unspecified Category: Medical Plan: Avoid foods that are high in cholesterol such as red meat, fried foods, eggs and baked goods. Triglyceride goal of less than 150 and LDL goal of less than 70. (3) Hypertension: Code(s): I10 - Essential (primary) hypertension Category: Medical Qualifiers: Hypertension type: essential hypertension Qualified Code(s): I10 - Essential (primary) hypertension Plan: Continue on current blood pressure medication. Avoid salt intake and encourage healthy diet and regular exercise. (4) Coronary artery disease: Comment: nstemi September 2017 SVT, January 2018 hypertrophic cardiomyopathy, December 2018 normal LV function mild hypertrophy, Holter normal December 2018, December 2019 echo normal ejection fraction with septal hypertrophy a symmetric mild left atrial enlargement Lexiscan stress test July 2022 negative Code(s): I25.10 - Atherosclerotic heart disease of [place] coronary artery without angina pectoris Category: Medical Qualifiers: Coronary Disease-Associated Artery/Lesion type: [place] artery [place] vs. transplanted heart: [place] heart Associated angina: without angina Qualified Code(s): I25.10 - Atherosclerotic heart disease of [place] coronary artery without angina pectoris Plan: Control blood sugar, blood pressure, cholesterol Plan This note was constructed using voice recognition software. While every effort has been made to ensure accuracy and x ray developer, still areas may have been included sometimes these areas may affect the content or meeting of the given symptoms. Total time spent caring for the patient today was 30 minutes. This includes time spent before the visit reviewing the chart, time spent during the visit, and time spent after the visit and documentation. Orders: Orders ECG 12 lead EKG Today Z01.818 - Encounter for other preprocedural examination
[2024-02-21 14:37] VITALS: BP 120/62; PULSE 60; O2SAT 97; BMI 30.6
== END 2024-02-21 15:29 | disposition home or self-care (01) ==
PROVIDERS: PCP Internal Medicine
DX: Z01.818 Encounter for other preprocedural examination (principal); E78.00 Pure hypercholesterolemia, unspecified; I10 Essential (primary) hypertension; I25.10 Atherosclerotic heart disease of native coronary artery without angina pectoris

== ENCOUNTER → 2024-02-21 14:35 | Outpatient (REF) | payer OTHER, SELFPAY ==
--- NOTE | 2024-02-21 15:40 | ECG_ITS ---
Test Reason : PREOP Blood Pressure : / mmHG Vent. Rate : 061 BPM Atrial Rate : 061 BPM P-R Int : 180 ms QRS Dur : 084 ms QT Int : 438 ms P-R-T Axes : 041 002 132 degrees QTc Int : 440 ms Normal sinus rhythm Minimal voltage criteria for LVH, may be normal variant ( R in aVL ) ST & T wave abnormality, consider anterolateral ischemia Abnormal ECG When compared with ECG of 11-JUN-2023 11:16, Incomplete right bundle branch block is no longer Present Referred By: Irma Thornton Electronically Signed By:ABIGAIL FIGUEROA MD
== END ==
LOC: HO.CARD 14:35
PROVIDERS: PCP Internal Medicine
DX: Z01.818 Encounter for other preprocedural examination (principal); E78.00 Pure hypercholesterolemia, unspecified; I10 Essential (primary) hypertension; I25.10 Atherosclerotic heart disease of native coronary artery without angina pectoris
CPT/HCPCS: 93005; 99212

== ENCOUNTER → 2024-02-21 15:40 | Outpatient (BNV) | payer OTHER, SELFPAY | PROVIDERS: PCP Internal Medicine; Visit Provider Internal Medicine Cardiovascular Disease | DX: R94.31 Abnormal electrocardiogram [ECG] [EKG] (principal) | CPT/HCPCS: 93010 ==

== ENCOUNTER 2024-04-28 10:10 | Outpatient (AMB) | payer OTHER, SELFPAY ==
--- NOTE | 2024-04-28 10:22 | A.OFFVIS_ITS ---
Intake Visit Reasons: 6m follow up Intake Note: Patient presents today for follow up visit on: microscopic hematuria Urology Medications: Estrace Cream Blood Thinner: clopidogrel Filling And Packing Supervisor Required: Yes Accompanied by: Unknown Allergies aspirin [ASPIRIN] Allergy (Unknown, Verified 04/28/24 10:) RASH, swelling atorvastatin Allergy (Unknown, Verified 04/28/24 10:) Unknown ibuprofen [From Motrin] Allergy (Unknown, Verified 04/28/24 10:) rash,swelling lisinopril Allergy (Unknown, Verified 04/28/24 10:) Unknown simvastatin Allergy (Unknown, Verified 04/28/24 10:) interaction with ulysses DAVE Comments Details: Julia is a 79-year-old Indonesian-speaking female patient of Dr. Bailon was accompanied by her granddaughter at today's office visit. She has a past medical history of coronary artery disease, osteoarthritis, congestive heart failure, migraines, PVD, benign hematuria, SVT, hypercholesteremia, vitamin-D deficiency, asthma, hypothyroidism, hypertension, obesity, and neuropathy. She presents to the office today for a follow up of her microscopic hematuria. Of note, patient was last seen a proximally 6 months ago at which time she underwent an office cystoscopy with Dr. Valdes that noted urethral atrophy and narrowing otherwise NAD. She was prescribed Estrace cream. In discussion with the patient today she reports to be doing and feeling well. She reports compliance with Estrace cream as prescribed. She discusses her longstanding history of microscopic hematuria. Previous workup has included a CT urogram 08/04 that noted no nephrolithiasis, suspicious renal mass, or filling defect in the collecting system. Equivocal mass at the right bladder base possibly due to under distention but in the presence of hematuria correlation with cystoscopy and urine cytology was recommended per radiology report. She denies any previous smoking history and or chemical exposure. She denies any bothersome urinary issues or concerns. She denies urinary urgency, urinary frequency, incontinence, nocturia, hematuria, dysuria, foul smelling urine, changes to urinary stream, flank pain, fever, and or chills. She is happy with her current voiding parameters. In office urinalysis results reviewed with the patient today 2+ microscopic hematuria. Urine cytology 10/04: Negative for high-grade urothelial carcinoma. She otherwise offers no other issues or concerns at this time. PREVIOUS OFFICE NOTE: Cystoscopy today shows urethral atrophy and narrowing Dilation performed Cystoscopy performed normal Estrace cream provided Follow-up 6 months [facility] Medical History COVID-19 virus infection Dysuria Loss of weight Chest pain Elbow pain, left Colon cancer screening Colonoscopy refused Coronary artery disease Knee osteoarthritis Congestive heart failure Migraine Peripheral vascular disease Benign hematuria SVT (supraventricular tachycardia) Hypercholesterolemia Vitamin D deficiency Asthma Hypothyroid Hypertension Obesity (BMI 30-39.9) Peroneal neuropathy Surgical History History of cataract surgery History of appendectomy History of lumpectomy of right breast History of tonsillectomy History of total abdominal hysterectomy and bilateral salpingo-oophorectomy History of tubal ligation Family History Father No problems noted. Mother Hypertension CVD (cardiovascular disease) Social History Housing: Apartment Alcohol intake: never Patient Tobacco Use Status: Never used Tobacco Tobacco use type: Cigarette e-Cigarette/Vaping Use: Never Used Second Hand Smoke Exposure: No service: No Current occupational status: retired and disabled Cognitive needs: Yes (walker) Hearing needs: No Vision needs: Yes (glasses) Review of Systems Const Reports no additional complaints Eyes Reports no additional complaints ENT Reports no additional complaints Card Reports as per HPI Resp Reports as per HPI GI Reports as per HPI Reports as per HPI Musc Reports as per HPI Neuro Reports no additional complaints Psych Reports no additional complaints Endo Reports as per HPI Tarun/Lymph Reports no additional complaints Aller/Immun Reports no additional complaints Physical Exam Const General: cooperative, healthy appearing, comfortable, no acute distress, well developed, alert and awake Orientation/consciousness: patient oriented x3 Limitations: language barrier HEENT Head: Yes normal to inspection, Yes normocephalic and Yes atraumatic Ears: hearing grossly normal bilaterally Eyes General: appearance normal, both eyes and all related structures Neck Neck: Yes normal visual inspection and Yes trachea midline Chest Chest palpation & inspection: normal inspection of the chest Resp Effort & Inspection: normal respiratory effort and able to speak in complete sentences Cardio Rate: regular rate GI Inspection: Yes normal to inspection General: Yes no CVA tenderness Back/Spine/Pelvis Back: no CVA tenderness Skin General skin exam: no rashes or lesions noted Neuro General: patient oriented x3 Extrem General: Yes normal to inspection Psych Appearance: grossly normal and well kempt Mental Status: mental status grossly normal Speech and movement: Normal speech and movement present and Clear speech present Affect: normal affect Attitude: cooperative Thought process: Normal thought process present Thought content: Normal thought content present Insight: Fair insight present (Psych) Judgement: Fair judgement present (Psych) Results AMB Urinalysis, Automated UA Leukoctes 15 Adriana/uL Last Edit by [employer] on 04/28/24 10:43 UA Nitrite Last Edit by [employer] on 04/28/24 10:43 UA Urobilinogen 0.2 mg/dL Last Edit by [employer] on 04/28/24 10:43 UA Protein 15 mg/dL Last Edit by [employer] on 04/28/24 10:43 UA pH 5.5 Last Edit by [employer] on 04/28/24 10:43 UA Blood 80 Stephen/uL Last Edit by [employer] on 04/28/24 10:43 UA Specific [place] 1.030 Last Edit by [employer] on 04/28/24 10:43 UA Ketone Positive Last Edit by [employer] on 04/28/24 10:43 UA Bilirubin 1 mg/dL Last Edit by [employer] on 04/28/24 10:43 UA Glucose 0 mg/dL Last Edit by [employer] on 04/28/24 10:43 Assessment & Plan Assessment & Plan (1) Microscopic hematuria: Code(s): R31.29 - Other microscopic hematuria Category: Medical Plan In office urinalysis results reviewed the patient today; as noted above; will send for urine cytology. Patient currently denies any bothersome urinary issues or concerns. She reports be happy with current voiding parameters. We discussed at length potential causes of microscopic hematuria. Continue Estrace cream as discussed and prescribed. Will continue with surveillance monitoring. Follow-up in 6 months; or sooner with any issues, concerns, and or questions. Orders: Orders AMB Urinalysis Automated Today Z13.9 - Encounter for screening, unspecified Urine Cytology Today R31.29 - Other microscopic hematuria Patient Instructions: The patient had an opportunity to ask questions regarding the treatment plan. All questions were answered. Physical exam, labs, and imaging were discussed and reviewed in detail. As well as risks, benefits, and discussion of treatment choices. No major barriers to understanding were identified. The patient expressed understanding and agreement with the above treatment plan. The patient was made aware they should contact our office by phone for worsening of their current condition, the appearance of new symptoms, or with any questions or concerns. Compliance is encouraged with any medications and follow up testing that is ordered. It is a privilege to be allowed the opportunity to participate in? your urological care.? Again, if you have any questions or concerns If you have any questions or concerns please do not hesitate to contact me. The office is [phone]. This note is constructed using voice recognition software. While every effort has been made to ensure accuracy lance crewmember/mlrs sergeant errors may have been included. Yours sincerely, WENDI Herman Coding Level of Care Code Est Pt Level 3 (74081) Complex EM visit Add On G2211 Diagnoses Microscopic hematuria R31.29
== END 2024-04-28 10:53 | disposition home or self-care (01) ==
PROVIDERS: PCP Internal Medicine; Visit Provider Nurse Practitioner Family
DX: R31.29 Other microscopic hematuria (principal); Z13.9 Encounter for screening, unspecified
CPT/HCPCS: 99213; G2211

== ENCOUNTER 2024-04-28 10:10 | Outpatient (REF) | payer OTHER, SELFPAY ==
[2024-04-28 17:03] LABS: Urine Cytology See Pathology rpt
== END 2024-04-28 10:11 | disposition home or self-care (01) ==
LOC: HO.LAB 10:10
PROVIDERS: PCP Internal Medicine; Visit Provider Nurse Practitioner Family
DX: R31.29 Other microscopic hematuria (principal)
CPT/HCPCS: 81003; 88112; 99212

== ENCOUNTER 2024-05-15 09:10 | Outpatient (AMB) | payer OTHER, SELFPAY ==
--- NOTE | 2024-05-15 09:31 | A.OFFPC_ITS ---
Vital Signs 05/15/24 09:34 05/15/24 10:04 Height 5 ft 5 in Weight 180 lb 4 oz BMI 30.0 BP 142/76 H 124/70 Blood Pressure Location Lt brachial Lt brachial Position Sitting Sitting Pulse 74 Pulse Source Pulse Oximeter Pulse Oximetry (%) 97 Oxygen Delivery Method Room Air Intake Visit Reasons: Coronary artery disease Allergies aspirin [ASPIRIN] Allergy (Unknown, Verified 04/28/24 10:) RASH, swelling atorvastatin Allergy (Unknown, Verified 04/28/24 10:) Unknown ibuprofen [From Motrin] Allergy (Unknown, Verified 04/28/24) rash,swelling lisinopril Allergy (Unknown, Verified 04/28/24 10:) Unknown simvastatin Allergy (Unknown, Verified 04/28/24:) interaction with cardizem Tobacco use date assessed: 06/11/23 Dental Screening Dental Screen Date: 09/11/23 HPI Coronary artery disease HPI Details The patient is an 79-year-old female presenting with osteoarthritis and knee pain. She reports persistent and significant pain in the right knee, which began several months ago and has progressively worsened. The pain is aggravated by movement, especially when lifting or bending the leg, and is accompanied by popping sensations in the joint. She describes having to manually assist her leg due to the sensation of xygl-im-cswy contact, a hallmark of advanced osteoarthritis. Previous imaging revealed substantial degeneration. Attempts to manage the condition with analgesics have been minimally effective. In addition, the patient is managing dyslipidemia and reports a reduction in her cholesterol levels with rosuvastatin therapy, though further monitoring is needed to ensure levels are within guideline recommendations. She experienced a previous heart rate issue, which has improved. The patient also reports ongoing issues of discomfort and dryness associated with potential urinary tract infections, which were observed during recent examinations. Hormone replacement therapy was noted as part of her treatment plan, targeted at alleviating these urinary symptoms; however, the patient needs to continue with this regimen. Possible nerve impingement associated with numbness and tingling was discussed, particularly with the sensation being noted around the knee area. [facility] Medical History COVID-19 virus infection Dysuria Loss of weight Chest pain Elbow pain, left Colon cancer screening Colonoscopy refused Coronary artery disease Knee osteoarthritis Congestive heart failure Migraine Peripheral vascular disease Benign hematuria SVT (supraventricular tachycardia) Hypercholesterolemia Vitamin D deficiency Asthma Hypothyroid Hypertension Obesity (BMI 30-39.9) Peroneal neuropathy Surgical History History of cataract surgery History of appendectomy History of lumpectomy of right breast History of tonsillectomy History of total abdominal hysterectomy and bilateral salpingo-oophorectomy History of tubal ligation Family History Father No problems noted. Mother Hypertension CVD (cardiovascular disease) Social History Housing: Apartment Alcohol intake: never Patient Tobacco Use Status: Never used Tobacco Tobacco use type: Cigarette e-Cigarette/Vaping Use: Never Used Second Hand Smoke Exposure: No service: No Current occupational status: retired and disabled Cognitive needs: Yes (walker) Hearing needs: No Vision needs: Yes (glasses) Questionnaire PHQ-9 Over the last 2 weeks, how often have you been bothered by any of the following problems? 1. Little interest or pleasure in doing things: not at all 2. Feeling down, depressed, or hopeless: not at all 3. Trouble falling or staying asleep, or sleeping too much: not at all 4. Feeling tired or having little energy: not at all 5. Poor appetite or overeating: not at all 6. Feeling bad about yourself - or that you are a failure or have let yourself or your family down: not at all 7. Trouble concentrating on things, such as reading the newspaper or watching te levision: not at all 8. Moving or speaking so slowly that other people could have noticed. Or the opposite - being so fidgety or restless that you have been moving around a lot more than usual: not at all 9. Thoughts that you would be better off or of hurting yourself in some way: not at all Total score: 0 Depression Screening Interpretation: Negative Depression Screening Done: Yes 72545 - PHQ-9 Billing: Yes Source: Developed by Drs. Gautam Marshall, Virginia Parish, Solo Mesa and colleagues, with an educational puja from [employer]. Thrive Questionnaire Date Thrive assessed: 05/15/24 I am a: Patient What is your living situation today?: I have a steady place to live Within the past 12 months, did the food you bought not last and you didn't have the money to get more?: Never true Within the past 12 months, did you worry whether your food would run out before you got money to buy more?: Never true Do you have trouble paying for medicines?: No Do you have trouble getting transportation to medical appointments?: No Do you have trouble paying your heating and electricity bill?: No Do you have trouble taking care of your child, family member or friend?: No Do you have trouble with day-to-day activities such as bathing, preparing meals, shopping, managing finances, etc.?: No Are you currently unemployed and looking for a job?: No Are you interested in more education?: No Please select the resources that you would like help with: None Currently or been in a relationship where the following occur: No concerns reported THRIVE Score: 0 AUDIT C Alcohol Use Questionnaire (AUDIT-C) 1. How often do you have a drink containing alcohol?: Never 2. How many drinks containing alcohol do you have on a typical day when you are drinking?: 1 or 2 3. How often do you have six or more drinks on one occasion?: Never Total Score: 0 Score Reviewed/Action Taken: No ANJU-7 AMB Questionnaire ANJU-7 Date ANJU - 7 assessed: 05/15/24 Feeling nervous, anxious, or on edge: 0 = Not at all Not being able to stop or control worryin = Not at all Worrying too much about different things: 0 = Not at all Trouble relaxin = Not at all Being so restless that it is hard to sit still: 0 = Not at all Becoming easily annoyed or irritable: 0 = Not at all Feeling afraid as if something awful might happen: 0 = Not at all Total ANJU-7 score (0-4 normal; 5-9 mild; 10-14 moderate; 15-21 severe): 0 Source: Developed by Drs. Gautam Marshall, Virginia Parish, Solo [place]a and colleagues, with an educational puja from [employer]. ANJU-7 Assessment Billing ANJU-7 Assessment Tool: ANJU-7 Assessment 06133 Physical exam (Primary Care) Vital Signs: Last Vital Signs Pulse 74 05/15/24 09:34 BP 124/70 05/15/24 10:04 Pulse Ox 97 05/15/24 09:34 Oxygen Delivery Method Room Air 05/15/24 09:34 BMI result Body Mass Index 30.0 Tobacco/Smoking Status: Tobacco use Status Tobacco use date assessed 06/11/23 05/15/24 09:32 Patient Tobacco Use Status Never used Tobacco 05/15/24 09:32 Tobacco use type Cigarette 05/15/24 09:32 e-Cigarette/Vaping Use Never Used 05/15/24 09:32 PHQ-9: PHQ-9 Score PHQ-9: Total score 0 05/15/24 10:02 Depression Screening Interpretation: Negative Thrive Assessment: Date of Thrive Assessment Date Thrive assessed 05/15/24 05/15/24 09:39 Currently or been in a relationship where the following occur: No concerns reported Const General: alert; No acute distress Eyes Conjunctivae: conjunctivae normal Resp Auscultation: clear to auscultation bilaterally Cardio Rate: regular rate Rhythm: regular rhythm GI Inspection: Yes normal to inspection Extrem General: Yes normal to inspection and No edema Office Procedures Flu Questionnaire Does the patient have a severe egg allergy?: No Does the patient have severe life threatening allergies?: No Does the patient have a fever or illness today?: No Has the patient ever had Guillain-[place] Syndrome?: No Has the patient ever had any past reaction to a flu shot?: No Immunizations Fluarix Triv [id number] (PF) 45 mcg (15 mcg x 3)/0.5 mL IM syringe Performing Provider: Rashid Bailon MD [facility] Administered by: Adele Brown LPN on 05/15/24 09:49 Dose Route Admin Location Dispensed Lot Number Expiration Date [facility] [employer] 0.5 mL IM Left Deltoid 0.5 mL [id number] 11/10/24 [id number] [employer] VIS Given Date VIS Provided VIS Publication Date 05/15/24 Single Vaccine 20 Eligibility Eligibility Date Funding Source Not [facility] Eligible 05/15/24 Private Coding Level of Care Code Est Pt Level 4 (33985) Complex EM visit Add On G2211 Diagnoses Essential hypertension I10 Hypertension type: essential hypertension Obesity (BMI 30-39.9) E66.9 Acquired hypothyroidism E03.9 Hypothyroidism type: acquired Mild intermittent asthma without complication J45.20 Asthma complication type: uncomplicated Asthma persistence: intermittent Asthma severity: mild Hypercholesterolemia E78.00 Chronic diastolic congestive heart failure I50.32 Heart failure chronicity: chronic Heart failure type: diastolic Coronary artery disease involving [place] coronary artery of [place] heart without angina pectoris I25.10 Associated angina: without angina Coronary Disease-Associated Artery/Lesion type: [place] artery [place] vs. transplanted heart: [place] heart Osteoarthritis of right knee M17.11 Right leg numbness R20.0 Additional Codes ANJU-7 Assessment Billing - ANJU-7 Assessment Tool: ANJU-7 Assessment 20291 ([id number]) PHQ-9 - 81006 - PHQ-9 Billing: Yes ([id number]) Assessment & Plan Assessment & Plan (1) Hypertension: Code(s): I10 - Essential (primary) hypertension Category: Medical Qualifiers: Hypertension type: essential hypertension Qualified Code(s): I10 - Essential (primary) hypertension Plan: Continue with blood pressure medication. Decrease salt intake and exercise continue with spironolactone 25 mg once a day diltiazem 240 mg once a day and carvedilol 6.25 mg twice a day (2) Obesity (BMI 30-39.9): Code(s): E66.9 - Obesity, unspecified Category: Medical Plan: Diet and exercise (3) Hypothyroid: Code(s): E03.9 - Hypothyroidism, unspecified Category: Medical Qualifiers: Hypothyroidism type: acquired Qualified Code(s): E03.9 - Hypothyroidism, unspecified Plan: Continue with thyroid medication (4) Asthma: Code(s): J45.909 - Unspecified asthma, uncomplicated Category: Medical Qualifiers: Asthma complication type: uncomplicated Asthma persistence: intermittent Asthma severity: mild Qualified Code(s): J45.20 - Mild intermittent asthma, uncomplicated Plan: Stable and has not needed any inhaler (5) Hypercholesterolemia: Code(s): E78.00 - Pure hypercholesterolemia, unspecified Category: Medical Plan: Avoid fried foods, chicken skin, eggs, butter margarine, pastries and meat. Be it pork or beef they have a lot of cholesterol LDL goal of less than 70 and triglyceride of less than 150 on rosuvastatin 10 mg once a day will retest blood work (6) Congestive heart failure: Code(s): I50.9 - Heart failure, unspecified Category: Medical Qualifiers: Heart failure chronicity: chronic Heart failure type: diastolic Qualified Code(s): I50.32 - Chronic diastolic (congestive) heart failure Plan: Weigh daily continue with the diuretic (7) Coronary artery disease: Comment: nstemi September 2017 SVT, January 2018 hypertrophic cardiomyopathy, December 2018 normal LV function mild hypertrophy, Holter normal December 2018, December 2019 echo normal ejection fraction with septal hypertrophy a symmetric mild left atrial enlargement Lexiscan stress test July 2022 negative Code(s): I25.10 - Atherosclerotic heart disease of [place] coronary artery without angina pectoris Category: Medical Qualifiers: Associated angina: without angina Coronary Disease-Associated [place]/Lesion type: [place] artery [place] vs. transplanted heart: [place] heart Qualified Code(s): I25.10 - Atherosclerotic heart disease of [place] coronary artery without angina pectoris Plan: Control the cholesterol, weight, blood pressure, diabetes on clopidogrel can not take aspirin (8) Osteoarthritis of right knee: Code(s): M17.11 - Unilateral primary osteoarthritis, right knee Category: Medical Plan: Keeping active and x-rays requested (9) Right leg numbness: Code(s): R20.0 - Anesthesia of skin Category: Medical Plan: Requested nerve conduction test Plan - Obtain an updated X-ray of the knee to assess the progression of osteoarthritis. - Continue current management with rosuvastatin for dyslipidemia; review blood work to ensure cholesterol levels are at target. - A referral to orthopedics will be considered if medication adjustments or physical therapy fails to offer adequate relief for knee osteoarthritis. - Evaluate and manage urinary tract infection with the continuation of appropriate hormones. Monitor urinary symptoms and intervene as necessary. - Conduct electrodiagnostic studies to evaluate nerve function and assess for nerve impingement, especially regarding knee-area sensations. - Recommend precautionary measures during the ongoing flu season, considering recent vaccinations and the potential for reduced immunity. - Neurosurgeon the patient on the importance of fasting prior to scheduled cholesterol and blood work tests. Orders: Orders NE electromyogram (EMG) Today R20.0 - Anesthesia of skin NE nerve conduction velocity Today R20.0 - Anesthesia of skin Influenza [id number] Immunization Today Z23 - Encounter for immunization Lipid Panel Today E78.00 - Pure hypercholesterolemia, unspecified Comprehensive Met. Panel Today E78.00 - Pure hypercholesterolemia, unspecified Vitamin B12 and Folate Today E78.00 - Pure hypercholesterolemia, unspecified Complete Blood Count Auto Diff Today E78.00 - Pure hypercholesterolemia, unspecified Thyroid Stimulating Hormone Today E78.00 - Pure hypercholesterolemia, unspecified XR knee RT 2V Today M17.11 - Unilateral primary osteoarthritis, right knee Medications: New diclofenac sodium 1% (Arthritis Pain (diclofenac)) apply to single knee, ankle, foot; for foot includes sole/toes/top of foot 4 grams topical QID 100 grams 11RF M17.11 - Unilateral primary osteoarthritis, right knee
[2024-05-15 09:34] VITALS: BP 142/76; PULSE 74; O2SAT 97
[2024-05-15 10:04] VITALS: BP 124/70
== END 2024-05-15 10:22 | disposition home or self-care (01) ==
PROVIDERS: PCP Internal Medicine; Visit Provider Internal Medicine
DX: I11.0 Hypertensive heart disease with heart failure (principal); I50.32 Chronic diastolic (congestive) heart failure; E66.9 Obesity, unspecified; Z68.30 Body mass index [BMI] 30.0-30.9, adult; E03.9 Hypothyroidism, unspecified; J45.20 Mild intermittent asthma, uncomplicated; E78.00 Pure hypercholesterolemia, unspecified; I25.10 Atherosclerotic heart disease of native coronary artery without angina pectoris; M17.11 Unilateral primary osteoarthritis, right knee; R20.0 Anesthesia of skin; Z23 Encounter for immunization

== ENCOUNTER → 2024-05-15 09:10 | Outpatient (BNVA) | payer OTHER, SELFPAY | PROVIDERS: PCP Internal Medicine; Visit Provider Internal Medicine | DX: Z23 Encounter for immunization (principal); I11.0 Hypertensive heart disease with heart failure; I50.20 Unspecified systolic (congestive) heart failure; E66.9 Obesity, unspecified; E03.9 Hypothyroidism, unspecified; J45.20 Mild intermittent asthma, uncomplicated; E78.00 Pure hypercholesterolemia, unspecified; I25.10 Atherosclerotic heart disease of native coronary artery without angina pectoris; M17.11 Unilateral primary osteoarthritis, right knee; R20.0 Anesthesia of skin | CPT/HCPCS: 90471; 90656; 96127; 99212 ==

== ENCOUNTER 2024-05-20 06:09 | Outpatient (REF) | payer OTHER, SELFPAY ==
--- NOTE | ~2024-05-20 | XR_ITS ---
CLINICAL HISTORY: M17.11 - Unilateral primary osteoarthritis, right knee 2 view right knee Comparison: CR/SR - XR KNEE RT 2V - 02/22/23 13:17 EDT Findings: There is 8 mm of lateral translation of the tibia in relation to the femur. No acute fracture. Moderate to severe tricompartmental osteoarthritis, most pronounced in the lateral compartment. Joint space narrowing, osteophyte formation, subcortical sclerosis, and subcortical cystic change is seen within all 3 compartments, especially involving the lateral compartment. Moderate-sized knee joint effusion. IMPRESSION: Moderate to severe tricompartmental DJD with moderate-sized knee joint effusion. This document has been electronically signed by: Olivier Chan MD on 05/20/2024 07:11:19
[2024-05-20 06:26] LABS: MANUAL DIFF FLAG NO
[2024-05-20 07:24] LABS: Basophils Percent Auto 0.5 % (0-2); Eosinophils Absolute Auto 0.1 X10*3/uL (0.0-0.4); Eosinophils Percent Auto 1.8 % (0-4); Hematocrit 37.7 % (37.0-47.0); Hemoglobin 12.3 g/dl (12.0-16.0); Imm Gran Abs Auto 0.02 X10*3/uL (0.00-0.03); Imm Gran Pct Auto 0.3 % (0.0-0.4); Lymphocytes Percent Auto 30.6 % (20-40); Mean Corpuscular HGB Conc 32.6 g/dl (31.0-35.0); Mean Corpuscular Hemoglobin 29.3 pg (27.0-33.0); Mean Corpuscular Volume 89.8 fL (80.0-98.0); Mean Platelet Volume 9.5 fL (9.4-12.3); Monocytes Absolute Auto 0.7 X10*3/uL (0.1-1.2); Monocytes Percent Auto 10.7 % (2-11); Neutrophils Absolute Auto 3.7 x10*3/uL (2.0-8.3); Neutrophils Percent Auto 56.1 % (45-73); Platelet Count 233 X10*3/uL (160-400); Red Cell Distribution Width 12.3 % (11.0-16.0); White Blood Count 6.6 X10*3/uL (4.8-10.8)
[2024-05-20 07:27] LABS: Appearance Urine Clear; Color Urine Yellow; Glucose Urine UA Negative (Negative); Leukocyte Esterase Urine Negative (Negative); Nitrite Urine Negative (Negative); Specific Gravity - Urine 1.015 (1.005-1.025); UMIC TRIGGER UACC YES; Urine Blood Small (1+) (Negative); Urine Ketones Negative (Negative); Urine Protein Negative (Neg-Trace)
[2024-05-20 07:32] LABS: Bacteria Urine None Seen (None Seen); Hyaline Casts Urine 0-2 /LPF (0-2); Squamous Epithelial Cell Urine 0-2 /HPF (0-2); WBC Urine 0-5 /HPF (0-5)
[2024-05-20 08:32] LABS: Alanine Aminotransferase 15 U/L (0-31); Alkaline Phosphatase 70 U/L (39-117); Anion Gap 9 (12-20); Aspartate Amino Transferase 23 U/L (5-31); Bilirubin Total 0.5 mg/dL (0.0-1.0); Blood Urea Nitrogen 14 mg/dL (9-16); Calcium 9.8 mg/dL (8.4-10.2); Carbon Dioxide 27 mmol/L (22-29); Chloride 109 mmol/L (96-108); Cholesterol 165 mg/dL (<200); Estimated Glomerular Filt Rate > 60; Glucose Random 94 mg/dL (60-115); HDL Cholesterol 45 mg/dL (>40); LDL Cholesterol Calculated 102 mg/dL (<100); Potassium 4.3 mmol/L (3.3-5.1); Sodium 141 mmol/L (135-145); Total Protein 7.6 g/dL (6.5-8.0); Triglycerides 91 mg/dL (<150)
[2024-05-20 08:53] LABS: Vitamin B12 832 pg/mL (200-900)
[2024-05-20 09:06] LABS: Thyroid Stimulating Hormone 0.26 uIU/mL (0.32-4.0)
== END 2024-05-20 06:10 | disposition home or self-care (01) ==
LOC: HO.LAB 06:09
PROVIDERS: PCP Internal Medicine; Visit Provider Internal Medicine
DX: E78.00 Pure hypercholesterolemia, unspecified (principal); M17.11 Unilateral primary osteoarthritis, right knee; M25.461 Effusion, right knee
CPT/HCPCS: 36415; 73560; 80053; 80061; 81001; 82607; 82746; 84443; 85025

== ENCOUNTER → 2024-05-20 06:30 | Outpatient (BNV) | payer OTHER, SELFPAY | PROVIDERS: PCP Internal Medicine; Visit Provider Radiology Diagnostic Radiology | DX: M17.11 Unilateral primary osteoarthritis, right knee (principal) | CPT/HCPCS: 73560 ==

== ENCOUNTER 2024-05-27 06:11 | Outpatient (REF) | payer OTHER, SELFPAY ==
--- NOTE | 2024-05-27 05:47 | EMG_ITS ---
Right tibial and peroneal motor studies were performed. Right superficial peroneal, sural, sensory studies, and tibial H-reflex was obtained. Paraspinal muscles were tested with a needle. IMPRESSION: 1. Eubg-rs-mxnkctxy axonal sensory motor peripheral neuropathy. 2. Mild right lower lumbar radiculopathy. MD TERESA Oneill/KARLIE / [phone]
== END 2024-05-27 06:12 | disposition home or self-care (01) ==
LOC: HO.NEURO 06:11
PROVIDERS: PCP Internal Medicine; Visit Provider Internal Medicine
DX: R20.0 Anesthesia of skin (principal)
CPT/HCPCS: 95886; 95909

== ENCOUNTER 2024-07-29 09:17 | Outpatient (AMB) | payer OTHER, SELFPAY ==
--- NOTE | 2024-07-29 09:26 | MHC.OFFVIS ---
Vital Signs 07/29/24 09:27 Height 5 ft 5 in Weight 187 lb 6.287 oz BMI 31.2 BP 112/78 Blood Pressure Location Lt brachial Position Sitting Pulse 62 Intake Visit Reasons: 1 yr fup Intake Note: 1 year follow-up with ekg feeling ok some sob Assurance Specialist Required: Yes Assurance Specialist Services: Assurance Specialist Present Assurance Specialist Name: wojciech Kruger Allergies aspirin [ASPIRIN] Allergy (Unknown, Verified 04/28/24 10:26) RASH, swelling atorvastatin Allergy (Unknown, Verified 04/28/24 10:26) Unknown ibuprofen [From Motrin] Allergy (Unknown, Verified 04/28/24 10:26) rash,swelling lisinopril Allergy (Unknown, Verified 04/28/24 10:26) Unknown simvastatin Allergy (Unknown, Verified 04/28/24 10:26) interaction with cardizem Medication List - Last Reconciled 07/29/24 by Valentin Vanegas MD acetaminophen ER 650 mg PO Q8H PRN amitriptyline 25 mg PO DAILY calcium carbonate (Oyster Shell Calcium) 500 mg PO DAILY 90 days carvedilol 6.25 mg PO BID 90 days cholecalciferol (vitamin D3) 25 mcg PO DAILY clopidogrel 75 mg PO DAILY cyanocobalamin (vitamin B-12) (Vitamin B-12) 1,000 mcg PO DAILY diclofenac sodium 1% (Arthritis Pain (diclofenac)) 4 grams topical QID diltiazem HCl CD 240 mg PO DAILY dorzolamide-timolol 22.3-6.8 mg/mL ophthalmic (eye) erythromycin 0.5 inches ophthalmic (eye) TID estradiol 0.01%(0.1mg/gram) pea-sized to urethra 3 times a week 30 days latanoprost 0.005% drps ophthalmic (eye) levothyroxine 100 mcg orally One tablet once a day except for Sunday; netarsudil 0.02% (Rhopressa) 0 drps ophthalmic (eye) rosuvastatin 10 mg PO DAILY 30 days spironolactone 25 mg PO DAILY timolol maleate 0.5% 0 drps ophthalmic (eye) HPI Comments Details: Julia comes for follow-up, history was obtained with help of industrial ecology technician. Patient denies any new cardiac symptoms. No prolonged palpitation irregular heartbeat. Blood pressure at home remains well controlled. She denies any heart failure symptoms. No symptoms of orthopnea, PND, persistent leg edema. Intermittently she gets leg swelling which is by the end of the day. She watches the salt in his diet. Exercises with no exertional chest pain or shortness of breath. [facility] Medical History COVID-19 virus infection Dysuria Loss of weight Chest pain Elbow pain, left Colon cancer screening Colonoscopy refused Coronary artery disease Knee osteoarthritis Congestive heart failure Migraine Peripheral vascular disease Benign hematuria SVT (supraventricular tachycardia) Hypercholesterolemia Vitamin D deficiency Asthma Hypothyroid Hypertension Obesity (BMI 30-39.9) Peroneal neuropathy Surgical History History of cataract surgery History of appendectomy History of lumpectomy of right breast History of tonsillectomy History of total abdominal hysterectomy and bilateral salpingo-oophorectomy History of tubal ligation Family History Father No problems noted. Mother Hypertension CVD (cardiovascular disease) Social History Housing: Apartment Alcohol intake: never Patient Tobacco Use Status: Never used Tobacco Tobacco use type: Cigarette e-Cigarette/Vaping Use: Never Used Second Hand Smoke Exposure: No service: No Current occupational status: retired and disabled Cognitive needs: Yes (walker) Hearing needs: No Vision needs: Yes (glasses) Review of Systems Const Denies chills, Denies fatigue, Denies fever(s), Denies frequent falls, Denies weakness, Denies weight gain and Denies weight loss ENT Denies dizziness Card Denies chest pain, Denies leg edema, Denies lightheadedness, Denies palpitations, Denies dyspnea, Denies dyspnea on exertion, Denies orthopnea and Denies other (loss of consciousness) Resp Denies cough, Denies dyspnea and Denies dyspnea on exertion GI Denies hematochezia and Denies change in stool character Musc Denies abnormal gait, Denies muscle weakness, Denies numbness, Denies radiating pain into limb and Denies tingling Neuro Denies abnormal gait, Denies dizziness, Denies frequent falls, Denies numbness, Denies tingling and Denies weakness Endo Denies fatigue and Denies palpitations Physical Exam Vital Signs: Last Vital Signs Pulse 62 07/29/24 09:27 BP 112/78 07/29/24 09:27 BMI result Body Mass Index 31.2 Const General: cooperative, comfortable, no acute distress, alert and awake Nutritional Appearance: obese Orientation/consciousness: patient oriented x3 Limitations: no limitations Neck Neck: Yes trachea midline and Yes supple Resp Effort & Inspection: normal respiratory effort Auscultation: clear to auscultation bilaterally Cardio Jugular venous distension: no JVD Palpation: normal PMI Rate: regular rate Rhythm: regular rhythm Heart sounds: S1 normal heart sound present, S2 normal heart sound present and Other heart sounds present (S4 present) GI Auscultation: normal bowel sounds Skin General skin exam: no rashes or lesions noted Neuro General: patient oriented x3 and no focal motor deficits Extrem General: Yes no clubbing, cyanosis or edema Psych Appearance: grossly normal Office Procedures EKG Details: EKG shows normal sinus rhythm with incomplete right bundle-branch block with minimal voltage criteria for LVH with ST T wave changes suggestive of repolarization abnormality [id number], Complete Assessment & Plan Assessment & Plan (1) Congestive heart failure: Code(s): I50.9 - Heart failure, unspecified Category: Medical Qualifiers: Heart failure type: diastolic Heart failure chronicity: chronic Qualified Code(s): I50.32 - Chronic diastolic (congestive) heart failure Plan: History of congestive heart failure which has remained controlled and euvolemic and well compensated without loop diuretic with control of her blood pressure. She was done extremely well with blood pressure control. She also improved lifestyle and improve her salt intake. Signs and symptoms of heart failure were discussed. Continue aggressive blood pressure control which is currently well optimized advised to monitor blood pressure at home and maintain a log. Goal blood pressure less than 130/84. Encouraged to maintain activity level as well as participate in weight loss. Overall she is doing well. (2) SVT (supraventricular tachycardia): Code(s): I47.1 - Supraventricular tachycardia Category: Medical Plan: SVT highly symptomatic causing elevated troponins consistent with NSTEMI although she does not have any symptoms suggestive of obstructive coronary disease. Continue dual therapy with carvedilol and Cardizem. Avoidance of stimulants was discussed. Vagal maneuvers were discussed. Will follow up in the clinic in 1 year's time after an echocardiogram. Thank you for allowing me to partake in his care Coding Level of Care Code Est Pt Level 4 (17460) Complex EM visit Add On G2211 Diagnoses Chronic diastolic congestive heart failure I50.32 Heart failure type: diastolic Heart failure chronicity: chronic SVT (supraventricular tachycardia) I47.1 CPT Codes EKG - CPT: 16458-[id number], Complete ([id number])
[2024-07-29 09:27] VITALS: BP 112/78; PULSE 62; BMI 31.2
--- OUTSIDE RECORDS SUMMARY | 2024-07-29 10:00 | XMS_ITS | Clinical Summary ---
Author Organization [facility] Address [address] [place] [address] Phone Care Team Providers Care Stitch Bonding Machine Tender Helper Name Role Phone Rashid Bailon MD Primary Care Provider [phone] Allergies No known active allergies Medications No known medications Surgical History Surgery Date Site/Laterality Comments TONSILLECTOMY PROCEDURE: HISTORICAL TONSILLECTOMY OTHER SURGICAL HISTORY PROCEDURE: [place] TOTAL ABDOMINAL HYSTERECT W/WO RMVL TUBE OVARY APPENDECTOMY PROCEDURE: [place] APPENDECTOMY TUBAL LIGATION PROCEDURE: HISTORICAL TUBAL LIGATION CATARACT EXTRACTION Medical History Medical History Date Comments Arthritis DX:Arthritis Hypothyroid DX:Hypothyroid HTN (hypertension) DX:HTN (hyper tension) Family History Medical History Relation Name Comments Breast cancer Neg Hx Colon cancer Neg Hx Ovarian cancer Neg Hx Prostate cancer Neg Hx Social History Tobacco Use Types Packs/Day Years Used Date Smoking Tobacco: Never Smokeless Tobacco: Never Alcohol Use Standard Drinks/Week Comments No 0 (1 standard drink = 0.6 oz pur e alcohol) Comments Unknown Sex and Gender Information Value Date Recorded Sex Assigned at Not on file Legal Sex Female 4:51 AM EST Gender Identity Not on file Sexual Orientation Not on file Obstetrics History Last Filed Vital Signs Vital Sign Reading Time Taken Comments Blood Pressure 126/59 04/11/2024 6:18 PM EST Pulse 86 04/11/2024 6:18 PM EST Temperature 37 ??C (98.6 ??F) 04/11/2024 3:24 PM EST Respiratory Rate 20 04/11/2024 3:24 PM EST Oxygen Saturation 95% 04/11/2024 6:18 PM EST Inhaled Oxygen Concentration - - Weight 81.2 kg (179 lb) 04/11/2024 3:24 PM EST Height 170.2 cm (5' 7 ) 04/11/2024 3:24 PM EST Body Mass Index 28.04 04/11/2024 3:24 PM EST Plan of Treatment Health Maintenance Due Date Last Done Comments DTaP,Tdap,and Td Vaccines (1 - Tdap) 1964 Pneumococcal Vaccine: 50+ Ye ars (1 of 1 - PCV) 1994 Zoster Vaccines (1 of 2) 1994 RSV Immunization Patients 60 + Years Old (1 - 1-dose 75+ series) 2019 Depression Screening 04/16/2022 Falls Risk Assessment 04/16/2022 Medicare Annual Wellness Visit 04/16/2022 Osteoporosis Screening (Bone Density Screening) 04/16/2022 Social Influencers of Health Screening 04/16/2022 COVID-19 Vaccine (1 - 2023-2 5 season) 2024 Influenza Vaccine (#1) 2024 HIB Vaccines Aged Out No longer eligi ble based on patient's age to complete this topic HPV Vaccines Aged Out No longer eligi ble based on patient's age to complete this topic Hepatitis A Vaccines Aged Out No long er eligible based on patient's age to complete this topic Hepatitis B Vaccines Aged Out No long er eligible based on patient's age to complete this topic IPV Vaccines Aged Out No longer eligi ble based on patient's age to complete this topic MMR Vaccines Aged Out No longer eligi ble based on patient's age to complete this topic Meningococcal ACWY Vaccine Aged Out N o longer eligible based on patient's age to complete this topic Meningococcal B Vacine Aged Out No lo nger eligible based on patient's age to complete this topic RSV Immunization Patients Un filemon 20 months Aged Out No longer eligible b ased on patient's age to complete this topic Varicella Vaccines Aged Out No longer eligible based on patient's age to complete this topic [place] [address] [address] [place] [address] MEDICARE Member Subscriber Plan / Payer (Ef fective 2013-Present) Name:Julia Franz Relation to Subscriber:Self Name:Julia Franz Payer ID:[id number] Group ID:[id number] Type:Not on file Address: [address] [place] [address] Care Teams Stitch Bonding Machine Tender Helper Relationship Specialty Start Date End Date Rashid Bailon MD [address] [place] [address] PCP - General Internal Medicine 04/11/24
== END 2024-07-29 09:52 | disposition home or self-care (01) ==
LOC: HO.HCS 09:18
PROVIDERS: PCP Internal Medicine; Visit Provider Internal Medicine Cardiovascular Disease
DX: I50.32 Chronic diastolic (congestive) heart failure (principal); I47.10 Supraventricular tachycardia, unspecified
CPT/HCPCS: 93010; 99214; G2211

== ENCOUNTER → 2024-07-29 09:17 | Outpatient (BNVA) | payer OTHER, SELFPAY | PROVIDERS: PCP Internal Medicine; Visit Provider Internal Medicine Cardiovascular Disease | DX: I50.32 Chronic diastolic (congestive) heart failure (principal); I47.10 Supraventricular tachycardia, unspecified; R94.31 Abnormal electrocardiogram [ECG] [EKG]; I45.10 Unspecified right bundle-branch block | CPT/HCPCS: 93005; 99212 ==

== ENCOUNTER 2024-08-06 12:34 | Outpatient (REF) | payer OTHER, SELFPAY ==
--- OUTSIDE RECORDS SUMMARY | 2024-08-06 14:52 | XMS_ITS | Clinical Summary ---
Author Organization [facility] Address [address] [place] [address] Phone Care Team Providers Care Asphalt Roller Operator Name Role Phone Rashid Bailon MD Primary Care Provider [phone] Allergies No known active allergies Medications No known medications Surgical History Surgery Date Site/Laterality Comments TONSILLECTOMY PROCEDURE: HISTORICAL TONSILLECTOMY OTHER SURGICAL HISTORY PROCEDURE: [place] TOTAL ABDOMINAL HYSTERECT W/WO RMVL TUBE OVARY APPENDECTOMY PROCEDURE: [place] APPENDECTOMY TUBAL LIGATION PROCEDURE: HISTORICAL TUBAL LIGATION [...] patient's age to complete this topic [place] [address] [place] [address] MEDICARE Member Subscriber Plan / Payer (Ef fective 2013-Present) Name:Julia Franz Relation to Subscriber:Self Name:Julia Franz Payer ID:[id number] Group ID:[id number] Type:Not on file Address: [address] [place] [address] Care Teams Asphalt Roller Operator Relationship Specialty Start Date End Date Rashid Bailon MD [address] [place] [address] PCP - General Internal Medicine 04/11/24
== END 2024-08-06 12:35 | disposition home or self-care (01) ==
LOC: HO.MAMMO 12:34
PROVIDERS: PCP Internal Medicine; Visit Provider Internal Medicine
DX: Z12.31 Encounter for screening mammogram for malignant neoplasm of breast (principal)
CPT/HCPCS: 77063; 77067

== ENCOUNTER → 2024-08-06 12:45 | Outpatient (BNV) | payer OTHER, SELFPAY | PROVIDERS: PCP Internal Medicine; Visit Provider Internal Medicine | DX: Z12.31 Encounter for screening mammogram for malignant neoplasm of breast (principal) | CPT/HCPCS: 77063; 77067 ==

== ENCOUNTER 2024-08-14 09:09 | Outpatient (AMB) | payer OTHER, SELFPAY ==
[2024-08-14 09:16] VITALS: BP 124/62; PULSE 70; O2SAT 97; BMI 31.3
--- NOTE | 2024-08-14 09:16 | A.OFFPC_ITS ---
Vital Signs 08/14/24 09:16 Height 5 ft 5 in Weight 188 lb BMI 31.3 BP 124/62 Blood Pressure Location Lt brachial Position Sitting Pulse 70 Pulse Source Pulse Oximeter Pulse Oximetry (%) 97 Oxygen Delivery Method Room Air Intake Visit Reasons: hypercholesterol, HTN Allergies aspirin [ASPIRIN] Allergy (Unknown, Verified 08/14/24 09:16) RASH, swelling atorvastatin Allergy (Unknown, Verified 08/14/24 09:16) Unknown ibuprofen [From Motrin] Allergy (Unknown, Verified 08/14/24 09:16) rash,swelling lisinopril Allergy (Unknown, Verified 08/14/24 09:16) Unknown simvastatin Allergy (Unknown, Verified 08/14/24 09:16) interaction with cardizem Medication List - Last Reconciled 08/14/24 by Rashid Bailon MD acetaminophen ER 650 mg PO Q8H PRN amitriptyline 25 mg PO DAILY calcium carbonate (Oyster Shell Calcium) 500 mg PO DAILY 90 days carvedilol 6.25 mg PO BID 90 days cholecalciferol (vitamin D3) 25 mcg PO DAILY clopidogrel 75 mg PO DAILY cyanocobalamin (vitamin B-12) (Vitamin B-12) 1,000 mcg PO DAILY diclofenac sodium 1% (Arthritis Pain (diclofenac)) 4 grams topical QID diltiazem HCl CD 240 mg PO DAILY dorzolamide-timolol 22.3-6.8 mg/mL ophthalmic (eye) erythromycin 0.5 inches ophthalmic (eye) TID estradiol 0.01%(0.1mg/gram) pea-sized to urethra 3 times a week 30 days latanoprost 0.005% drps ophthalmic (eye) levothyroxine 100 mcg orally One tablet once a day except for Sunday; netarsudil 0.02% (Rhopressa) 0 drps ophthalmic (eye) rosuvastatin 10 mg PO DAILY 30 days spironolactone 25 mg PO DAILY timolol maleate 0.5% 0 drps ophthalmic (eye) Tobacco use date assessed: 08/14/24 Fall risk assessment: No Falls in past year Last assessed Fall Risk: 08/14/24 Dental Screening Dental Screen Date: 08/14/24 Did you have a dental visit in the last 12 months?: No Did you have a dental problem in the last 6 months where you did not have access to dental care?: No Was dental information given to patient?: No [facility] Medical History COVID-19 virus infection Dysuria Loss of weight Chest pain Elbow pain, left Colon cancer screening Colonoscopy refused Coronary artery disease Knee osteoarthritis Congestive heart failure Migraine Peripheral vascular disease Benign hematuria SVT (supraventricular tachycardia) Hypercholesterolemia Vitamin D deficiency Asthma Hypothyroid Hypertension Obesity (BMI 30-39.9) Peroneal neuropathy Surgical History History of cataract surgery History of appendectomy History of lumpectomy of right breast History of tonsillectomy History of total abdominal hysterectomy and bilateral salpingo-oophorectomy History of tubal ligation Family History Father No problems noted. Mother Hypertension CVD (cardiovascular disease) Social History Housing: Apartment Alcohol intake: never Patient Tobacco Use Status: Never used Tobacco Tobacco use type: Cigarette e-Cigarette/Vaping Use: Never Used Second Hand Smoke Exposure: No service: No Current occupational status: retired and disabled Cognitive needs: Yes (walker) Hearing needs: No Vision needs: Yes (glasses) Questionnaire PHQ-9 Over the last 2 weeks, how often have you been bothered by any of the following problems? 1. Little interest or pleasure in doing things: not at all 2. Feeling down, depressed, or hopeless: not at all 3. Trouble falling or staying asleep, or sleeping too much: not at all 4. Feeling tired or having little energy: not at all 5. Poor appetite or overeating: not at all 6. Feeling bad about yourself - or that you are a failure or have let yourself or your family down: not at all 7. Trouble concentrating on things, such as reading the newspaper or watching television: not at all 8. Moving or speaking so slowly that other people could have noticed. Or the opposite - being so fidgety or restless that you have been moving around a lot more than usual: not at all 9. Thoughts that you would be better off or of hurting yourself in some way: not at all Total score: 0 Depression Screening Interpretation: Negative Depression Screening Done: Yes 13932 - PHQ-9 Billing: Yes Source: Developed by Drs. Gautam Marshall, Solo Gonzales and colleagues, with an educational puja from [employer]. Thrive Questionnaire Date Thrive assessed: 05/15/24 AUDIT C Alcohol Use Questionnaire (AUDIT-C) 1. How often do you have a drink containing alcohol?: Never 2. How many drinks containing alcohol do you have on a typical day when you are drinking?: 1 or 2 3. How often do you have six or more drinks on one occasion?: Never Total Score: 0 Score Reviewed/Action Taken: No ANJU-7 AMB Questionnaire ANJU-7 Date ANJU - 7 assessed: 05/15/24 Source: Developed by Drs. Gautam Marshall, Solo Gonzales and colleagues, with an educational puja from [employer]. Physical exam (Primary Care) Vital Signs: Last Vital Signs Pulse 70 08/14/24 09:16 BP 124/62 08/14/24 09:16 Pulse Ox 97 08/14/24 09:16 Oxygen Delivery Method Room Air 08/14/24 09:16 BMI result Body Mass Index 31.3 Tobacco/Smoking Status: Tobacco use Status Tobacco use date assessed 08/14/24 08/14/24 09:22 Patient Tobacco Use Status Never used Tobacco 08/14/24 09:22 Tobacco use type Cigarette 08/14/24 09:22 e-Cigarette/Vaping Use Never Used 08/14/24 09:22 PHQ-9: PHQ-9 Score PHQ-9: Total score 0 08/14/24 09:43 Depression Screening Interpretation: Negative Thrive Assessment: Date of Thrive Assessment Date Thrive assessed 05/15/24 08/14/24 09:22 Const General: alert; No acute distress Eyes Conjunctivae: conjunctivae normal Resp Auscultation: clear to auscultation bilaterally Cardio Rate: regular rate Rhythm: regular rhythm GI Inspection: Yes normal to inspection Extrem General: Yes normal to inspection and No edema Coding Level of Care Code Est Pt Level 4 (08000) Diagnoses Coronary artery disease involving [place] coronary artery of [place] heart without angina pectoris I25.10 Associated angina: without angina Coronary Disease-Associated Artery/Lesion type: [place] artery [place] vs. transplanted heart: [place] heart Essential hypertension I10 Hypertension type: essential hypertension Obesity (BMI 30-39.9) E66.9 Acquired hypothyroidism E03.9 Hypothyroidism type: acquired Hypercholesterolemia E78.00 Axonal neuropathy G62.89 Knee pain, right M25.561 Additional Codes PHQ-9 - 30426 - PHQ-9 Billing: Yes ([id number]) Assessment & Plan Assessment & Plan (1) Coronary artery disease: Comment: nstemi September 2017 SVT, January 2018 hypertrophic cardiomyopathy, December 2018 normal LV function mild hypertrophy, Holter normal December 2018, December 2019 echo normal ejection fraction with septal hypertrophy a symmetric mild left atrial enlargement Lexiscan stress test July 2022 negative Code(s): I25.10 - Atherosclerotic heart disease of [place] coronary artery without angina pectoris Category: Medical Qualifiers: Associated angina: without angina Coronary Disease-Associated Artery/Lesion type: [place] artery [place] vs. transplanted heart: [place] heart Qualified Code(s): I25.10 - Atherosclerotic heart disease of [place] coronary artery without angina pectoris Plan: Control the cholesterol, weight, blood pressure continue with clopidogrel 75 mg once a day (2) Hypertension: Code(s): I10 - Essential (primary) hypertension Category: Medical Qualifiers: Hypertension type: essential hypertension Qualified Code(s): I10 - Essential (primary) hypertension Plan: Continue with blood pressure medication. Decrease salt intake and exercise continue with spironolactone with diltiazem 240 mg once a day carvedilol 6.25 mg twice a day (3) Obesity (BMI 30-39.9): Code(s): E66.9 - Obesity, unspecified Category: Medical Plan: Diet and exercise (4) Hypothyroid: Code(s): E03.9 - Hypothyroidism, unspecified Category: Medical Qualifiers: Hypothyroidism type: acquired Qualified Code(s): E03.9 - Hypothyroidism, unspecified Plan: Continue with thyroid medication but did tell the patient to repeat the blood work. This was not done yet (5) Hypercholesterolemia: Code(s): E78.00 - Pure hypercholesterolemia, unspecified Category: Medical Plan: Avoid fried foods, chicken skin, eggs, butter margarine, pastries and meat. Be it pork or beef they have a lot of cholesterol LDL goal of less than 70 and triglyceride of less than 150 on rosuvastatin 10 mg once a day (6) Axonal neuropathy: Comment: 06/2024 Right side with mild radiculopathy Code(s): G62.89 - Other specified polyneuropathies Category: Medical Plan: Discussed about causes and concern about radiculopathy will do some x-rays of the lumbar spine. (7) Knee pain, right: Code(s): M25.561 - Pain in right knee Category: Medical Plan History of Present Illness The patient is an 79-year-old female presenting with right leg numbness and for follow-up care. She has a history of obesity, essential hypertension, hypothyroidism, asthma, hypercholesterolemia, congestive heart failure, coronary artery disease, and a history of supraventricular tachycardia. The numbness in her right leg was investigated with a nerve conduction test that identified mild to moderate axonal sensory motor peripheral neuropathy, coupled with mild right lower lumbar radiculopathy. Aggravating factors for the numbness include certain leg positions, and although an MRI was considered for further evaluation, it was not deemed urgent. Additionally, the patient experiences significant pain in her right knee, diagnosed as moderate to severe osteoarthritis. This condition involves joint space narrowing and bone friction, leading to increased discomfort and limitations in mobility. Health Maintenance - Last mammogram in July 2024, indicated asymmetry in the left breast, ultrasound requested. - Bone density scan conducted in May 2022. - Blood work from May showed elevated LDL cholesterol at 102 mg/dL; goal LDL is less than 70 mg/dL. - Continuing management for controlling congestive heart failure without diuretics. - Emphasis on dietary modifications to manage cholesterol and cardiovascular risk. Social History - No mention of employment or housing status. - Dietary habits include consumption of meats, pork, fried foods, and seafood such as shrimp and yolanda crab. - Mention of moderate physical activity levels, though specific exercise habits were not detailed. Review of Systems Physical Exam Results - Nerve conduction test indicates mild to moderate axonal sensory motor peripheral neuropathy and mild right lower lumbar radiculopathy. - Blood work (May): normal blood count, electrolytes, renal function, blood sugar, normal liver function, elevated LDL cholesterol at 102 mg/dL, mildly abnormal thyroid function. Plan Patient was informed and verbally consented to the use of an ambient scribe for clinic note documentation during this visit. Discussion Notes I discussed with the patient the findings of the nerve conduction test showing mild to moderate neuropathy and mild radiculopathy. Given the mild nature and the positional influence on symptoms, an MRI was discussed but not currently prioritized. For her knee osteoarthritis, we reviewed the diagnosis and explored options of pain management including NSAIDs use and the potential for orthopedic referral should her symptoms increase. I provided education on controlling hypercholesterolemia through dietary changes, acknowledging her reluctance to increase medication dosage. We agreed on continuing the current management for congestive heart failure and addressing the mildly abnormal thyroid function with repeated blood work. Risks, benefits, and treatment options, including lifestyle modifications, were thoroughly discussed. Patient Instructions - Manage leg position to reduce nerve compression. - Use approved pain medication options for knee osteoarthritis. - Follow dietary recommendations to improve cholesterol and cardiovascular health. - Complete fasting blood work for thyroid assessment. - Monitor symptoms and seek follow-up care if there are changes in symptoms or new concerns arise. - Continue current heart failure management regimen. Orders: Orders Lipid Panel Today E78.00 - Pure hypercholesterolemia, unspecified, I25.10 - Atherosclerotic heart disease of [place] coronary artery without angina pectoris Comprehensive Met. Panel Today I25.10 - Atherosclerotic heart disease of [place] coronary artery without angina pectoris Free T4 (Free Thyroxine) Today I25.10 - Atherosclerotic heart disease of [place] coronary artery without angina pectoris Thyroid Stimulating Hormone Today I25.10 - Atherosclerotic heart disease of [place] coronary artery without angina pectoris
--- OUTSIDE RECORDS SUMMARY | 2024-08-14 09:29 | XMS_ITS | Clinical Summary ---
Author Organization [facility] Address [address] [place] [address] Phone Care Team Providers Care Wine Steward/Stewardess Name Role Phone Rashid Bailon MD Primary Care Provider [phone] Allergies No known active allergies Medications No known medications Surgical History Surgery Date Site/Laterality Comments TONSILLECTOMY PROCEDURE: HISTORICAL TONSILLECTOMY OTHER SURGICAL HISTORY PROCEDURE: [place] TOTAL ABDOMINAL HYSTERECT W/WO RMVL TUBE OVARY APPENDECTOMY PROCEDURE: [place] APPENDECTOMY TUBAL LIGATION PROCEDURE: HISTORICAL TUBAL LIGATION [...] Vaccines (1 of 2) 1994 RSV Immunization Adult Patie nts (1 - 1-dose 75+ series) 2019 Depression [...] patient's age to complete this topic Insurance [facility] MEDICARE Member Subscriber Plan / Payer (Ef fective 2013-Present) Name:Julia Franz Relation to Subscriber:Self Name:Julia Franz Payer ID:[id number] Group ID:[id number] Type:Not on file Address: [address] [place] [address] Care Teams Wine Steward/Stewardess Relationship Specialty Start Date End Date Rashid Bailon MD [address] [place] [address] PCP - General Internal Medicine 04/11/24
== END 2024-08-14 10:04 | disposition home or self-care (01) ==
LOC: HO.HMCH 09:10
PROVIDERS: PCP Internal Medicine; Visit Provider Internal Medicine
DX: I25.10 Atherosclerotic heart disease of native coronary artery without angina pectoris (principal); I10 Essential (primary) hypertension; E66.9 Obesity, unspecified; Z68.31 Body mass index [BMI] 31.0-31.9, adult; E03.9 Hypothyroidism, unspecified; E78.00 Pure hypercholesterolemia, unspecified; G62.89 Other specified polyneuropathies; M25.561 Pain in right knee

== ENCOUNTER → 2024-08-14 09:09 | Outpatient (BNVA) | payer OTHER, SELFPAY | PROVIDERS: PCP Internal Medicine; Visit Provider Internal Medicine | DX: I25.10 Atherosclerotic heart disease of native coronary artery without angina pectoris (principal); I10 Essential (primary) hypertension; E66.9 Obesity, unspecified; E03.9 Hypothyroidism, unspecified; E78.00 Pure hypercholesterolemia, unspecified; G62.89 Other specified polyneuropathies; M25.561 Pain in right knee | CPT/HCPCS: 96127; 99212 ==

== ENCOUNTER 2024-08-25 06:26 | Outpatient (REF) | payer OTHER, SELFPAY ==
--- OUTSIDE RECORDS SUMMARY | 2024-08-25 06:29 | XMS_ITS | Clinical Summary ---
Author Organization [facility] Address [address] [place] [address] Phone Care Team Providers Care Role Player Name Role Phone Rashid Bailon MD Primary Care Provider [phone] Allergies No known active allergies Medications No known medications Surgical History Surgery Date Site/Laterality Comments TONSILLECTOMY PROCEDURE: HISTORICAL TONSILLECTOMY OTHER SURGICAL HISTORY PROCEDURE: [place] TOTAL ABDOMINAL HYSTERECT W/WO RMVL TUBE OVARY APPENDECTOMY PROCEDURE: [place] APPENDECTOMY TUBAL LIGATION PROCEDURE: HISTORICAL TUBAL LIGATION [...] - 2023-2 5 season) 2024 Influenza Vaccine (Season Ended) 2025 HIB Vaccines Aged Out No longer eligi [...] age to complete this topic Meningococcal B Vaccine Aged Out No l onger eligible based on patient's age to complete this topic RSV Immunization Patients Un filemon 20 months Aged Out No longer eligible b ased on patient's age to complete this topic Varicella Vaccines Aged Out No longer eligible based on patient's age to complete this topic Insurance [facility] MEDICARE Member Subscriber Plan / Payer (Ef fective 2013-Present) Name:Julia Franz Relation to Subscriber:Self Name:Julia Franz Payer ID:[id number] Group ID:[id number] Type:Not on file Address: [address] [place] [address] Care Teams Role Player Relationship Specialty Start Date End Date Rashid Bailon MD [address] [place] [address] PCP - General Internal Medicine 04/11/24
[2024-08-25 07:36] LABS: Appearance Urine Clear; Color Urine Yellow; Glucose Urine UA Negative (Negative); Leukocyte Esterase Urine Trace (Negative); Nitrite Urine Negative (Negative); Specific Gravity - Urine 1.015 (1.005-1.025); UMIC TRIGGER UACC YES; Urine Blood Small (1+) (Negative); Urine Ketones Negative (Negative); Urine Protein Negative (Neg-Trace)
[2024-08-25 07:42] LABS: Bacteria Urine None Seen (None Seen); Hyaline Casts Urine 0-2 /LPF (0-2); Squamous Epithelial Cell Urine 0-2 /HPF (0-2); WBC Urine 0-5 /HPF (0-5)
[2024-08-25 07:59] LABS: Alanine Aminotransferase 22 U/L (0-31); Albumin Level 4.4 g/dL (3.5-5.0); Alkaline Phosphatase 72 U/L (39-117); Anion Gap 9 (12-20); Aspartate Amino Transferase 26 U/L (5-31); Bilirubin Total 0.7 mg/dL (0.0-1.0); Blood Urea Nitrogen 15 mg/dL (9-16); Calcium 10.1 mg/dL (8.4-10.2); Carbon Dioxide 28 mmol/L (22-29); Chloride 107 mmol/L (96-108); Cholesterol 151 mg/dL (<200); Estimated Glomerular Filt Rate 58; Glucose Random 87 mg/dL (60-115); HDL Cholesterol 46 mg/dL (>40); LDL Cholesterol Calculated 86 mg/dL (<100); Sodium 140 mmol/L (135-145); Total Protein 7.9 g/dL (6.5-8.0); Triglycerides 97 mg/dL (<150)
[2024-08-25 08:08] LABS: Erythrocyte Sedimentation Rate 24 MM/HR (0-20)
[2024-08-25 08:25] LABS: Free T4 (Free Thyroxine) 0.92 ng/dL (0.71-1.85); Thyroid Stimulating Hormone 2.68 uIU/mL (0.32-4.0)
[2024-08-25 08:45] LABS: HBc Num1 0.11 S/CO (0.00-0.79); HBsAGNum1 0.28 S/CO (0.00-0.99); Hepatitis B Core Antibody Nonreactive (Nonreactive); Hepatitis B Surface Antigen Negative (Negative); ~HepC Num1 0.17 S/CO (0.00-0.79); ~Hepatitis B Surface Antibody NONREACTIVE (Nonreactive); ~Hepatitis C Antibody Nonreactive (Nonreactive)
[2024-08-26 18:28] LABS: Homocysteine 13.4 umol/L (<10.4)
[2024-08-26 22:29] LABS: Prot Elec - Albumin 4.2 g/dL (3.8-4.8); Prot Elec - Alpha1 0.3 g/dL (0.2-0.3); Prot Elec - Alpha2 0.7 g/dL (0.5-0.9); Prot Elec - Beta 1 0.5 g/dL (0.4-0.6); Prot Elec - Beta 2 0.5 g/dL (0.2-0.5); Prot Elec - Gamma 1.3 g/dL (0.8-1.7); Prot Elec - Total Protein 7.5 g/dL (6.1-8.1)
[2024-08-27 03:23] LABS: Lyme Abs Screen <0.90 index
[2024-08-28 09:49] LABS: Anti Nuclear Antibody Screen NEGATIVE (NEGATIVE)
[2024-08-29 01:09] LABS: Methylmalonic Acid 128 nmol/L (85-423)
== END 2024-08-25 06:27 | disposition home or self-care (01) ==
LOC: HO.LAB 06:26
PROVIDERS: PCP Internal Medicine; Visit Provider Internal Medicine
DX: G62.89 Other specified polyneuropathies (principal); R79.89 Other specified abnormal findings of blood chemistry; I25.10 Atherosclerotic heart disease of native coronary artery without angina pectoris; E78.00 Pure hypercholesterolemia, unspecified; E03.9 Hypothyroidism, unspecified
CPT/HCPCS: 36415; 80053; 80061; 81001; 83090; 83921; 84165; 84439; 84443; 85652; 86038; 86617; 86618; 86704; 86706; 86803; 87340

== ENCOUNTER 2024-10-07 09:23 | Outpatient (REF) | payer OTHER, SELFPAY ==
--- NOTE | ~2024-10-07 | US_ITS ---
EXAMINATION: MM DIAGNOSTIC DIGITAL BREAST TOMOSYNTHESIS, LEFT Left Limited ultrasound. CLINICAL INFORMATION: Call back from screening for asymmetry in the superior left breast on MLO view. COMPARISON: Mammography: [facility] on PACS. TECHNIQUE: Digital breast tomosynthesis is performed in both the craniocaudal and mediolateral oblique views along with computer-aided detection (CAD). Synthesized 2D images are generated from the tomosynthesis. FINDINGS: The breasts are heterogeneously dense, which may obscure small masses (ACR BI-RADS breast composition Category c). The previously seen asymmetry in the superior left breast on MLO view does not persist on additional imaging projections and likely represented overlapping breast tissue. There are no significant masses, abnormal calcifications, or other abnormalities. Targeted color Doppler ultrasound scanning in the superior left breast from 10-2 o'clock demonstrates normal fibroglandular breast tissue. There is no suspicious sonographic abnormal findings. US/US breast LT limited mamm only IMPRESSION: No mammographic or sonographic abnormality. ASSESSMENT: BI-RADS BI-RADS 1 - Negative RECOMMENDATION: 1 year F/U Results were provided to the patient at time of visit by the technologist. This patient's information was entered into a reminder system with a target due date for their next mammogram. Electronically signed by: Tara Hernández DO 10/07/2024 10:31 AM EDT
--- OUTSIDE RECORDS SUMMARY | 2024-10-07 09:56 | XMS_ITS | Clinical Summary ---
Author Organization [facility] Address [address] [place] [address] Phone Care Team Providers Care Air Lift Operator Name Role Phone Rashid Bailon MD Primary Care Provider [phone] Allergies No known active allergies Medications No known medications Surgical History Surgery Date Site/Laterality Comments TONSILLECTOMY PROCEDURE: HISTORICAL TONSILLECTOMY OTHER SURGICAL HISTORY PROCEDURE: [place] TOTAL ABDOMINAL HYSTERECT W/WO RMVL TUBE OVARY APPENDECTOMY PROCEDURE: [place] APPENDECTOMY TUBAL LIGATION PROCEDURE: HISTORICAL TUBAL LIGATION [...] patient's age to complete this topic Insurance [facility] MEDICARE Member Subscriber Plan / Payer (Ef fective 2013-Present) Name:Julia Franz Relation to Subscriber:Self Name:Julia Franz Payer ID:[id number] Group ID:[id number] Type:Not on file Address: [address] [place] [address] Care Teams Air Lift Operator Relationship Specialty Start Date End Date Rashid Bailon MD PCP - General Internal Medicine 04/11/24
== END 2024-10-07 09:24 | disposition home or self-care (01) ==
LOC: HO.MAMMO 09:23
PROVIDERS: PCP Internal Medicine; Visit Provider Internal Medicine
DX: N64.89 Other specified disorders of breast (principal)
CPT/HCPCS: 76642; 77061; 77065

== ENCOUNTER → 2024-10-07 09:30 | Outpatient (BNV) | payer OTHER, SELFPAY | PROVIDERS: PCP Internal Medicine; Visit Provider Internal Medicine | DX: R92.8 Other abnormal and inconclusive findings on diagnostic imaging of breast (principal) | CPT/HCPCS: 76642; 77065; G0279 ==

== ENCOUNTER 2024-10-27 08:16 | Outpatient (AMB) | payer OTHER, SELFPAY ==
--- NOTE | 2024-10-27 08:22 | A.OFFVIS_ITS ---
Intake Visit Reasons: 6M f/u Intake Note: Patient presents today for follow up visit on: microscopic hematuria Urology Medications: Estrace Cream Blood Thinner: clopidogrel Glazier Apprentice Required: Yes Glazier Apprentice Services: Glazier Apprentice Offered & Declined Glazier Apprentice Name: grand daughter Accompanied by: Grand Child Allergies aspirin [ASPIRIN] Allergy (Unknown, Verified 10/27/24 08:56) RASH, swelling atorvastatin Allergy (Unknown, Verified 10/27/24 08:56) Unknown ibuprofen [From Motrin] Allergy (Unknown, Verified 10/27/24 08:56) rash,swelling lisinopril Allergy (Unknown, Verified 10/27/24 08:56) Unknown simvastatin Allergy (Unknown, Verified 10/27/24 08:56) interaction with cardizem Medication List - Last Reconciled 10/27/24 by WENDI Herman acetaminophen ER 650 mg PO Q8H PRN amitriptyline 25 mg PO DAILY calcium carbonate (Oyster Shell Calcium) 500 mg PO DAILY 90 days carvedilol 6.25 mg PO BID 90 days cholecalciferol (vitamin D3) 25 mcg PO DAILY clopidogrel 75 mg PO DAILY cyanocobalamin (vitamin B-12) (Vitamin B-12) 1,000 mcg PO DAILY diclofenac sodium 1% (Arthritis Pain (diclofenac)) 4 grams topical QID diltiazem HCl CD 240 mg PO DAILY dorzolamide-timolol 22.3-6.8 mg/mL ophthalmic (eye) erythromycin 0.5 inches ophthalmic (eye) TID estradiol 0.01%(0.1mg/gram) pea-sized to urethra 3 times a week 90 days latanoprost 0.005% drps ophthalmic (eye) levothyroxine 100 mcg orally One tablet once a day except for Sunday; netarsudil 0.02% (Rhopressa) 0 drps ophthalmic (eye) rosuvastatin 10 mg PO DAILY 30 days spironolactone 25 mg PO DAILY timolol maleate 0.5% 0 drps ophthalmic (eye) HPI Comments Details: Julia is a 79-year-old Bengali-speaking female patient of Dr. Bailon was accompanied by her granddaughter at today's office visit. She has a past medical history of coronary artery disease, osteoarthritis, congestive heart failure, migraines, PVD, benign hematuria, SVT, hypercholesteremia, vitamin-D deficiency, asthma, hypothyroidism, hypertension, obesity, and neuropathy. She presents to the office today for a follow up of her microscopic hematuria. In discussion with the patient today she reports to be doing and feeling well. She denies having had any bothersome urinary issues or concerns since her last office visit here. She denies having had any UTIs and or UTI like symptoms. In office urinalysis results reviewed with the patient today. 3+ microscopic hematuria. Previous workup has included a in office cystoscopy with Dr. Valdes 11/04 that noted urethral atrophy and narrowing otherwise NAD. She was prescribed Estrace cream. In discussion with the patient today she reports to be doing and feeling well. She reports compliance with Estrace cream as prescribed. She discusses her longstanding history of microscopic hematuria. Previous workup has also included a CT urogram 08/04 that noted no nephrolithiasis, suspicious renal mass, or filling defect in the collecting system. Equivocal mass at the right bladder base possibly due to under distention but in the presence of hematuria correlation with cystoscopy and urine cytology was recommended per radiology report. She denies any previous smoking history and or chemical exposure. She denies any bothersome urinary issues or concerns. She denies urinary urgency, urinary frequency, incontinence, nocturia, hematuria, dysuria, foul smelling urine, flank pain, fever, and or chills. She does report noting changes to her urinary stream and feels she starts and stops frequently. PVR 0 mL. We did discussed further treatment options to include pelvic floor therapy and or trial of alpha-raffy however, patient feels she is managing symptoms well independently and would like to continue with surveillance monitoring. Urine cytology 10/04 & 05/06: Negative for high-grade urothelial carcinoma. She reports compliance with Estrace cream as prescribed and is requesting a refill. She otherwise offers no other issues or concerns at this time. PREVIOUS OFFICE NOTE: Cystoscopy today shows urethral atrophy and narrowing Dilation performed Cystoscopy performed normal Estrace cream provided Follow-up 6 months [facility] Medical History COVID-19 virus infection Dysuria Loss of weight Chest pain Elbow pain, left Colon cancer screening Colonoscopy refused Coronary artery disease Knee osteoarthritis Congestive heart failure Migraine Peripheral vascular disease Benign hematuria SVT (supraventricular tachycardia) Hypercholesterolemia Vitamin D deficiency Asthma Hypothyroid Hypertension Obesity (BMI 30-39.9) Peroneal neuropathy Surgical History History of cataract surgery History of appendectomy History of lumpectomy of right breast History of tonsillectomy History of total abdominal hysterectomy and bilateral salpingo-oophorectomy History of tubal ligation Family History Father No problems noted. Mother Hypertension CVD (cardiovascular disease) Social History Housing: Apartment Alcohol intake: never Patient Tobacco Use Status: Never used Tobacco Tobacco use type: Cigarette e-Cigarette/Vaping Use: Never Used Second Hand Smoke Exposure: No service: No Current occupational status: retired and disabled Cognitive needs: Yes (walker) Hearing needs: No Vision needs: Yes (glasses) Review of Systems Const Reports no additional complaints Eyes Reports no additional complaints ENT Reports no additional complaints Card Reports as per HPI Resp Reports as per HPI GI Reports as per HPI Reports as per HPI Musc Reports as per HPI Neuro Reports no additional complaints Psych Reports no additional complaints Endo Reports as per HPI Tarun/Lymph Reports no additional complaints Aller/Immun Reports no additional complaints Physical Exam Const General: cooperative, healthy appearing, comfortable, no acute distress, well developed, alert and awake Orientation/consciousness: patient oriented x3 Limitations: language barrier HEENT Head: Yes normal to inspection, Yes normocephalic and Yes atraumatic Ears: hearing grossly normal bilaterally Eyes General: appearance normal, both eyes and all related structures Neck Neck: Yes normal visual inspection and Yes trachea midline Chest Chest palpation & inspection: normal inspection of the chest Resp Effort & Inspection: normal respiratory effort and able to speak in complete sentences Cardio Rate: regular rate GI Inspection: Yes normal to inspection General: Yes no CVA tenderness Back/Spine/Pelvis Back: no CVA tenderness Skin General skin exam: no rashes or lesions noted Neuro General: patient oriented x3 Extrem General: Yes normal to inspection Psych Appearance: grossly normal and well kempt Mental Status: mental status grossly normal Speech and movement: Normal speech and movement present and Clear speech present Affect: normal affect Attitude: cooperative Thought process: Normal thought process present Thought content: Normal thought content present Insight: Fair insight present (Psych) Judgement: Fair judgement present (Psych) Results AMB Urinalysis, Automated UA Leukoctes 125 Adriana/uL Last Edit by Evelyne Ceja [place] on 10/27/24 08:34 UA Nitrite Negative Last Edit by Evelyne Ceja OK on 10/27/24 08:34 UA Urobilinogen 0.2 mg/dL Last Edit by Evelyne Ceja [place] on 10/27/24 08:34 UA Protein 15 mg/dL Last Edit by Evelyne Ceja [place] on 10/27/24 08:34 UA pH 5.5 Last Edit by Evelyne [place], [place] on 10/27/24 08:34 UA Blood 200 Stephen/uL Last Edit by Evelyne Ceja [place] on 10/27/24 08:34 UA Specific [place] 1.025 Last Edit by Evelyne Ceja [place] on 10/27/24 08:34 UA Ketone Negative Last Edit by Evelyne Ceja [place] on 10/27/24 08:34 UA Bilirubin 1 mg/dL Last Edit by Evelyne Ceja [place] on 10/27/24 08:34 UA Glucose 0 mg/dL Last Edit by Evelyne Ceja [place] on 10/27/24 08:34 Results Reviewed Results Reviewed: Laboratory Last Values Urine pH (Auto) 5.5 10/27/24 08:24 Specific [place] (Auto) 1.025 10/27/24 08:24 Urine Protein (Auto) 15 mg/dL 10/27/24 08:24 Glucose (UA)(Auto) 0 mg/dL 10/27/24 08:24 Urine Ketones (Auto) Negative 10/27/24 08:24 Urine Blood (Auto) 200 Stephen/uL 10/27/24 08:24 Urine Nitrite (Auto) Negative 10/27/24 08:24 Urine Bilirubin (Auto) 1 mg/dL 10/27/24 08:24 Urine Urobilinogen (Auto) 0.2 mg/dL 10/27/24 08:24 Leukocyte Esterase (Auto) 125 Adriana/uL 10/27/24 08:24 Assessment & Plan Assessment & Plan (1) Microscopic hematuria: Code(s): R31.29 - Other microscopic hematuria Category: Medical Plan In office urinalysis results reviewed the patient today; as noted above; will send for urine cytology. PVR 0 mL Patient currently denies any bothersome urinary issues or concerns. She reports be happy with current voiding parameters. We discussed at length potential causes of microscopic hematuria. Continue Estrace cream as discussed and prescribed; refill provided. Will continue with surveillance monitoring. Follow-up in 6 months; or sooner with any issues, concerns, and or questions. 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 All questions were answered. Physical exam, labs, and imaging were discussed and reviewed in detail. As well as risks, benefits, and discussion of treatment choices. No major barriers to understanding were identified. The patient expressed understanding and agreement with the above treatment plan. The patient was made aware they should contact our office by phone for worsening of their current condition, the appearance of new symptoms, or with any questions or concerns. Compliance is encouraged with any medications and follow up testing that is ordered. It is a privilege to be allowed the opportunity to participate in? your urological care.? Again, if you have any questions or concerns If you have any questions or concerns please do not hesitate to contact me. The office is [phone]. This note is constructed using voice recognition software. While every effort has been made to ensure accuracy flight radio officer errors may have been included. Yours sincerely, DOYLE Herman-SONAL Coding Level of Care Code Est Pt Level 3 (65615) Complex EM visit Add On G2211 Diagnoses Microscopic hematuria R31.29
--- OUTSIDE RECORDS SUMMARY | 2024-10-27 08:33 | XMS_ITS | Clinical Summary ---
Author Organization [facility] Address [address] [place] [address] Phone Care Team Providers Care Recycling Collections Driver Name Role Phone Rashid Bailon MD Primary Care Provider [phone] Allergies No known active allergies Medications No known medications Surgical History Surgery Date Site/Laterality Comments TONSILLECTOMY PROCEDURE: HISTORICAL TONSILLECTOMY OTHER SURGICAL HISTORY PROCEDURE: MS TOTAL ABDOMINAL HYSTERECT W/WO RMVL TUBE OVARY APPENDECTOMY PROCEDURE: MS APPENDECTOMY TUBAL LIGATION PROCEDURE: HISTORICAL TUBAL LIGATION [...] to complete this topic Insurance [facility] MEDIC[facility] Member Subscriber Plan / Payer (Ef fective 2013-Present) Name:Julia Franz Relation to Subscriber:Self Name:Julia Franz Payer ID:[id number] Group ID:[id number] Type:Not on file Address[address] [address] [place] [address] Care Teams Recycling Collections Driver Relationship Specialty Start Date End Date Rashid Bailon MD PCP - General Internal Medicine 04/11/24
== END 2024-10-27 09:10 | disposition home or self-care (01) ==
LOC: HO.HUSH 08:17
PROVIDERS: PCP Internal Medicine; Visit Provider Nurse Practitioner Family
DX: Z13.9 Encounter for screening, unspecified (principal); R31.29 Other microscopic hematuria
CPT/HCPCS: 99213; G2211

== ENCOUNTER 2024-10-27 08:16 | Outpatient (REF) | payer OTHER, SELFPAY ==
[2024-10-27 16:50] LABS: Urine Cytology See Pathology rpt
== END 2024-10-27 08:17 | disposition home or self-care (01) ==
LOC: HO.LAB 08:16
PROVIDERS: PCP Internal Medicine; Visit Provider Nurse Practitioner Family
DX: R31.29 Other microscopic hematuria (principal)
CPT/HCPCS: 81003; 88112; 99212

== ENCOUNTER 2024-12-03 10:00 | Outpatient (AMB) | payer OTHER, SELFPAY ==
[2024-12-03 10:03] VITALS: BP 128/68; PULSE 81; RESP 18; TEMP 36.2; O2SAT 97; BMI 30.9
--- NOTE | 2024-12-03 10:03 | A.OFFPC_ITS ---
Vital Signs 12/03/24 10:03 Height 5 ft 5 in Weight 186 lb BMI 30.9 BP 128/68 Blood Pressure Location Lt brachial Position Sitting Respiration 18 Pulse 81 Pulse Source Pulse Oximeter Temp 97.1 F Temp Source Temporal Artery Scan Pulse Oximetry (%) 97 Oxygen Delivery Method Room Air Intake Visit Reasons: knee OA, cholesterol Accompanied by: Grand Child Allergies aspirin (ASPIRIN) Allergy (Unknown, Verified 12/03/24 10:06) RASH, swelling atorvastatin Allergy (Unknown, Verified 12/03/24 10:06) Unknown ibuprofen (From Motrin) Allergy (Unknown, Verified 12/03/24 10:06) rash,swelling lisinopril Allergy (Unknown, Verified 12/03/24 10:06) Unknown simvastatin Allergy (Unknown, Verified 12/03/24 10:06) interaction with cardizem Medication List - Last Reconciled 12/03/24 by Rashid Bailon MD acetaminophen ER 650 mg PO Q8H PRN amitriptyline 25 mg PO DAILY calcium carbonate (Oyster Shell Calcium) 500 mg PO DAILY 90 days carvedilol 6.25 mg PO BID 90 days cholecalciferol (vitamin D3) 25 mcg PO DAILY clopidogrel 75 mg PO DAILY cyanocobalamin (vitamin B-12) (Vitamin B-12) 1,000 mcg PO DAILY diclofenac sodium 1% (Arthritis Pain (diclofenac)) 4 grams topical QID diltiazem HCl CD 240 mg PO DAILY dorzolamide-timolol 22.3-6.8 mg/mL ophthalmic (eye) erythromycin 0.5 inches ophthalmic (eye) TID estradiol 0.01%(0.1mg/gram) pea-sized to urethra 3 times a week 90 days latanoprost 0.005% drps ophthalmic (eye) levothyroxine 100 mcg orally One tablet once a day except for Sunday; netarsudil 0.02% (Rhopressa) 0 drps ophthalmic (eye) rosuvastatin 10 mg PO DAILY 30 days spironolactone 25 mg PO DAILY timolol maleate 0.5% 0 drps ophthalmic (eye) Tobacco use date assessed: 12/03/24 Fall risk assessment: No Falls in past year Last assessed Fall Risk: 12/03/24 Dental Screening Dental Screen Date: 12/03/24 Did you have a dental visit in the last 12 months?: No Did you have a dental problem in the last 6 months where you did not have access to dental care?: No Was dental information given to patient?: Patient declined [facility] Medical History COVID-19 virus infection Dysuria Loss of weight Chest pain Elbow pain, left Colon cancer screening Colonoscopy refused Coronary artery disease Knee osteoarthritis Congestive heart failure Migraine Peripheral vascular disease Benign hematuria SVT (supraventricular tachycardia) Hypercholesterolemia Vitamin D deficiency Asthma Hypothyroid Hypertension Obesity (BMI 30-39.9) Peroneal neuropathy Surgical History History of cataract surgery History of appendectomy History of lumpectomy of right breast History of tonsillectomy History of total abdominal hysterectomy and bilateral salpingo-oophorectomy History of tubal ligation Family History Father No problems noted. Mother Hypertension CVD (cardiovascular disease) Social History Housing: Apartment Alcohol intake: never Patient Tobacco Use Status: Never used Tobacco Tobacco use type: Cigarette e-Cigarette/Vaping Use: Never Used Second Hand Smoke Exposure: No service: No Current occupational status: retired and disabled Cognitive needs: Yes (walker) Hearing needs: No Vision needs: Yes (glasses) Questionnaire PHQ-9 Over the last 2 weeks, how often have you been bothered by any of the following problems? 1. Little interest or pleasure in doing things: not at all 2. Feeling down, depressed, or hopeless: not at all 3. Trouble falling or staying asleep, or sleeping too much: nearly every day 4. Feeling tired or having little energy: several days 5. Poor appetite or overeating: not at all 6. Feeling bad about yourself - or that you are a failure or have let yourself or your family down: not at all 7. Trouble concentrating on things, such as reading the newspaper or watching television: not at all 8. Moving or speaking so slowly that other people could have noticed. Or the opposite - being so fidgety or restless that you have been moving around a lot more than usual: not at all 9. Thoughts that you would be better off or of hurting yourself in some way: not at all Total score: 4 Source: Developed by Drs. Gautam Marshall, Solo Gonzales and colleagues, with an educational puja from [employer]. Thrive Questionnaire Date Thrive assessed: 05/15/24 I am a: Patient What is your living situation today?: I have a steady place to live Within the past 12 months, did the food you bought not last and you didn't have the money to get more?: Never true Within the past 12 months, did you worry whether your food would run out before you got money to buy more?: Never true Do you have trouble paying for medicines?: No Do you have trouble getting transportation to medical appointments?: No Do you have trouble paying your heating and electricity bill?: No Do you have trouble taking care of your child, family member or friend?: No Do you have trouble with day-to-day activities such as bathing, preparing meals, shopping, managing finances, etc.?: No Are you currently unemployed and looking for a job?: No Are you interested in more education?: No Please select the resources that you would like help with: None Currently or been in a relationship where the following occur: No concerns reported THRIVE Score: 0 AUDIT C Alcohol Use Questionnaire (AUDIT-C) 1. How often do you have a drink containing alcohol?: Never 3. How often do you have six or more drinks on one occasion?: Never Total Score: 0 ANJU-7 AMB Questionnaire ANJU-7 Date ANJU - 7 assessed: 05/15/24 Feeling nervous, anxious, or on edge: 0 = Not at all Not being able to stop or control worryin = Not at all Worrying too much about different things: 0 = Not at all Trouble relaxin = Not at all Being so restless that it is hard to sit still: 0 = Not at all Becoming easily annoyed or irritable: 0 = Not at all Feeling afraid as if something awful might happen: 0 = Not at all Total ANJU-7 score (0-4 normal; 5-9 mild; 10-14 moderate; 15-21 severe): 0 Source: Developed by Virginia Smith Kurt Kroenke and colleagues, with an educational puja from [employer]. Physical exam (Primary Care) Vital Signs: Last Vital Signs Temp 97.1 F 12/03/24 10:03 Pulse 81 12/03/24 10:03 Resp 18 12/03/24 10:03 BP 128/68 12/03/24 10:03 Pulse Ox 97 12/03/24 10:03 Oxygen Delivery Method Room Air 12/03/24 10:03 BMI result Body Mass Index 30.9 Tobacco/Smoking Status: Tobacco use Status Tobacco use date assessed 12/03/24 12/03/24 10:08 Patient Tobacco Use Status Never used Tobacco 12/03/24 10:08 Tobacco use type Cigarette 12/03/24 10:08 e-Cigarette/Vaping Use Never Used 12/03/24 10:08 PHQ-9: PHQ-9 Score PHQ-9: Total score 4 12/03/24 10:19 Thrive Assessment: Date of Thrive Assessment Date Thrive assessed 05/15/24 12/03/24 10:08 Currently or been in a relationship where the following occur: No concerns reported Const General: alert; No acute distress Eyes Conjunctivae: conjunctivae normal Resp Auscultation: clear to auscultation bilaterally Cardio Rate: regular rate Rhythm: regular rhythm GI Inspection: Yes normal to inspection Extrem General: Yes normal to inspection and No edema Coding Level of Care Code Est Pt Level 4 (35063) Complex EM visit Add On G2211 Diagnoses Coronary artery disease involving [place] coronary artery of [place] heart without angina pectoris I25.10 Associated angina: without angina Coronary Disease-Associated Artery/Lesion type: [place] artery [place] vs. 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 Assessment & Plan Assessment & Plan (1) Coronary artery disease: Comment: nstemi September 2017 SVT, January 2018 hypertrophic cardiomyopathy, December 2018 nor mal LV function mild hypertrophy, Holter normal December 2018December 2019 echo normal ejection fraction with septal hypertrophy a symmetric mild left atrial enlargement Lexiscan stress test July 2022 negative Code(s): I25.10 - Atherosclerotic heart disease of [place] coronary artery without angina pectoris Category: Medical Qualifiers: Associated angina: without angina Coronary Disease-Associated Artery/Lesion type: [place] artery [place] vs. transplanted heart: [place] heart Qualified Code(s): I25.10 - Atherosclerotic heart disease of [place] coronary artery without angina pectoris Plan: Continue to follow up with Cardiology. Control the cholesterol, weight, blood pressure, diabetes on clopidogrel since can not take aspirin (2) Hypertension: Code(s): I10 - Essential (primary) hypertension Category: Medical Qualifiers: Hypertension type: essential hypertension Qualified Code(s): I10 - Essential (primary) hypertension Plan: Continue with blood pressure medication. Decrease salt intake and exercise patient is on carvedilol 6.25 mg twice a day diltiazem 240 mg once a day spironolactone 25 mg once a day (3) Hypercholesterolemia: Code(s): E78.00 - Pure hypercholesterolemia, unspecified Category: Medical Plan: Avoid fried foods, chicken skin, eggs, butter margarine, pastries and meat. Be it pork or beef they have a lot of cholesterol LDL goal of less than 70 and triglyceride of less than 150 on rosuvastatin 10 mg once a day (4) Hypothyroid: Code(s): E03.9 - Hypothyroidism, unspecified Category: Medical Qualifiers: Hypothyroidism type: acquired Qualified Code(s): E03.9 - Hypothyroidism, unspecified Plan: Continue with thyroid medication (5) Osteopenia: Code(s): M85.80 - Other specified disorders of bone density and structure, unspecified site Category: Medical Plan: Patient is reminded about bone density (6) Obesity (BMI 30-39.9): Code(s): E66.9 - Obesity, unspecified Category: Medical Plan: Diet and exercise (7) Microscopic hematuria: Code(s): R31.29 - Other microscopic hematuria Category: Medical Plan: Patient under surveillance with urology and has been given Estrace cream (8) Axonal neuropathy: Comment: 06/2024 Right side with mild radiculopathy Code(s): G62.89 - Other specified polyneuropathies Category: Medical Plan: Patient is advised to continue to take vitamin B12. Plan History of Present Illness The patient is an 79-year-old female presenting with management of chronic conditions and preventative care. She has a history of obesity, hypertension, hypothyroidism, asthma, hypercholesterolemia, coronary artery disease, congestive heart failure, osteoarthritis, peripheral neuropathy, and hematuria. The patient's hypertension is currently well-controlled, and she is on carvedilol, diltiazem, and spironolactone for management. Her hypercholesterolemia is being managed with rosuvastatin, with a goal LDL of less than 70 mg/dL. Despite improvements, her LDL was 86 mg/dL in August, and she prefers not to increase the medication dose at this time. The patient reports worsening knee pain due to osteoarthritis, described as moderate to severe with [id number] contact. She has tried various medications and is considering an orthopedic referral for further management options, including possible injections or surgery. She follows up with urology for hematuria, which is under surveillance with no significant findings reported so far. Her bone density was last assessed in May 2022, and she is reminded to continue monitoring her bone health. Health Maintenance - Bone density screening last conducted in May 2022 - Surveillance for hematuria with urology follow-up - Cholesterol management with a goal LDL of less than 70 mg/dL - Dietary modifications to reduce cholesterol intake Social History Review of Systems - Musculoskeletal: Reports worsening knee pain due to osteoarthritis - Genitourinary: Reports hematuria under surveillance - Cardiovascular: Denies chest pain, palpitations, or syncope Physical Exam Results - Labs: Normal blood count, no anemia, electrolytes normal, renal function normal, blood sugar normal, liver function normal, thyroid normal - Cholesterol: LDL 86 mg/dL, triglycerides 97 mg/dL, homocysteine elevated at 13.4 Plan The patient will continue her current antihypertensive regimen, which includes carvedilol, diltiazem, and spironolactone, as her blood pressure is well- controlled. For hypercholesterolemia, the patient is advised to maintain her current dose of rosuvastatin, with dietary modifications to further lower her LDL levels, aiming for a target of less than 70 mg/dL. Regarding osteoarthritis, the patient is considering an orthopedic referral for further evaluation and management, including potential injections or surgical options. She is advised to continue using pain management strategies that have been effective in the past. The patient will continue to follow up with urology for hematuria surveillance, as previous tests have shown no significant findings. A bone density screening was last conducted in May 2022, and the patient is reminded to continue monitoring her bone health. Patient was informed and verbally consented to the use of an ambient scribe for clinic note documentation during this visit. Discussion Notes During the visit, I discussed with the patient the importance of maintaining her current antihypertensive and cholesterol management regimens. We reviewed the potential benefits of dietary modifications to further reduce her LDL cholesterol levels. I also explained the options available for managing her osteoarthritis, including the possibility of an orthopedic referral for further evaluation. The patient was advised to continue her follow-up with urology for hematuria surveillance and to monitor her bone health regularly. Patient Instructions - Continue taking your blood pressure medications as prescribed. - Maintain your current dose of rosuvastatin and follow dietary recommendations to lower cholesterol. - Consider an orthopedic referral for your knee pain if current pain management is insufficient. - Follow up with urology for hematuria surveillance. - Monitor your bone health and consider scheduling a bone density test if advised. Orders: Orders Comprehensive Met. Panel 3 Months E78.00 - Pure hypercholesterolemia, unspecified Lipid Panel 3 Months E78.00 - Pure hypercholesterolemia, unspecified XR DEXA axial skeleton Today M81.0 - Age-related osteoporosis without current pathological fracture, M85.80 - Other specified disorders of bone density and structure, unspecified site Referrals Orthopedics Referral M17.11 - Unilateral primary osteoarthritis, right knee Medications: New [SHOWER CHAIR] As directed 1 ea 0RF M17.11 - Unilateral primary osteoarthritis, right knee
--- OUTSIDE RECORDS SUMMARY | 2024-12-03 10:51 | XMS_ITS | Clinical Summary ---
Author Organization [facility] Address [address] [place] [address] Phone Care Team Providers Care Service Center Appraiser Name Role Phone Rashid Bailon MD Primary Care Provider [phone] Allergies No known active allergies Medications No known medications Surgical History Surgery Date Site/Laterality Comments TONSILLECTOMY PROCEDURE: HISTORICAL TONSILLECTOMY OTHER SURGICAL HISTORY PROCEDURE: [place] TOTAL ABDOMINAL HYSTERECT W/WO RMVL TUBE OVARY APPENDECTOMY PROCEDURE: [place] APPENDECTOMY TUBAL LIGATION PROCEDURE: HISTORICAL TUBAL LIGATION [...] 86 04/11/2024 6:18 PM EST Temperature 37 C (98.6 F) 04/11/2024 3:24 PM EST Respiratory Rate 20 [...] nts (1 - 1-dose 75+ series) 2019 Falls Risk Assessment 04/16/2022 Medicare Annual Wellness Visit 04/16/2022 Osteoporosis Screening (Bone Density Screening) 04/16/2022 Social Influencers of Health Screening 04/16/2022 COVID-19 Vaccine (1 - 2023-2 5 season) 2024 Depression Screening 05/14/2024 Influenza Vaccine (#1) 2025 HIB Vaccines Aged Out No longer [...] patient's age to complete this topic Insurance [facility] MEDICARE Member Subscriber Plan / Payer (Ef fective 2013-Present) Name:Julia Franz Relation to Subscriber:Self Name:Julia Franz Payer ID:[id number] Group ID:[id number] Type:Not on file Address: [address] [place] [address] Care Teams Service Center Appraiser Relationship Specialty Start Date End Date Rashid Bailon MD PCP - General Internal Medicine 04/11/24
== END 2024-12-03 10:36 | disposition home or self-care (01) ==
LOC: HO.HMCH 10:01
PROVIDERS: PCP Internal Medicine; Visit Provider Internal Medicine
DX: I25.10 Atherosclerotic heart disease of native coronary artery without angina pectoris (principal); I10 Essential (primary) hypertension; Z68.30 Body mass index [BMI] 30.0-30.9, adult; E66.9 Obesity, unspecified; E78.00 Pure hypercholesterolemia, unspecified; E03.9 Hypothyroidism, unspecified; M85.80 Other specified disorders of bone density and structure, unspecified site; R31.29 Other microscopic hematuria; G62.89 Other specified polyneuropathies

== ENCOUNTER → 2024-12-03 10:00 | Outpatient (BNVA) | payer OTHER, SELFPAY | PROVIDERS: PCP Internal Medicine; Visit Provider Internal Medicine | DX: M17.11 Unilateral primary osteoarthritis, right knee (principal); E78.00 Pure hypercholesterolemia, unspecified; I25.10 Atherosclerotic heart disease of native coronary artery without angina pectoris; I10 Essential (primary) hypertension; E03.9 Hypothyroidism, unspecified; M85.80 Other specified disorders of bone density and structure, unspecified site; E66.9 Obesity, unspecified; R31.29 Other microscopic hematuria; G62.89 Other specified polyneuropathies; Z68.30 Body mass index [BMI] 30.0-30.9, adult | CPT/HCPCS: 96127; 99212 ==

== ENCOUNTER 2024-12-29 14:08 | Outpatient (AMB) | payer OTHER, SELFPAY ==
--- NOTE | 2024-12-29 14:15 | MHC.OFFVIS ---
Vital Signs 12/29/24 14:20 Height 5 ft 5 in Weight 186 lb BMI 30.9 Intake Visit Reasons: BI MANAGER-right knee OA Intake Note: Julia is a 79 year old female who presents today as a new patient for Right knee OA. Patient was seen and referred by her PCP. Patient's Granddaughter states that the right knee pain has been going on for over a year. Patient's granddaughter reports that the numbing pain radiates up to the right hip and down to her foot. Patient's granddaughter reports that she has never tried injections or physical therapy, NSAIDs give no relief. Screen Printing Paster Required: Yes Screen Printing Paster Services: Screen Printing Paster Offered & Declined Screen Printing Paster Name: Ya-GrandDaughter Allergies aspirin (ASPIRIN) Allergy (Unknown, Verified 12/29/24 14:21) RASH, swelling atorvastatin Allergy (Unknown, Verified 12/29/24 14:21) Unknown ibuprofen (From Motrin) Allergy (Unknown, Verified 12/29/24 14:21) rash,swelling lisinopril Allergy (Unknown, Verified 12/29/24 14:21) Unknown simvastatin Allergy (Unknown, Verified 12/29/24 14:21) interaction with ulysses [facility] HPI BI MANAGER-right knee OA: Details: 79 Year old female presents to the office today for pain in the right knee. The right knee pain has been going for a little over a year. She feels the pain directly behind the anterior portion of the knee and also complains of crunching with walking and bending. She has had no treatment to date. [facility] Medical History COVID-19 virus infection Dysuria Loss of weight Chest pain Elbow pain, left Colon cancer screening Colonoscopy refused Coronary artery disease Knee osteoarthritis Congestive heart failure Migraine Peripheral vascular disease Benign hematuria SVT (supraventricular tachycardia) Hypercholesterolemia Vitamin D deficiency Asthma Hypothyroid Hypertension Obesity (BMI 30-39.9) Peroneal neuropathy Surgical History History of cataract surgery History of appendectomy History of lumpectomy of right breast History of tonsillectomy History of total abdominal hysterectomy and bilateral salpingo-oophorectomy History of tubal ligation Family History Father No problems noted. Mother Hypertension CVD (cardiovascular disease) Social History Housing: Apartment Alcohol intake: never Patient Tobacco Use Status: Never used Tobacco Tobacco use type: Cigarette e-Cigarette/Vaping Use: Never Used Second Hand Smoke Exposure: No service: No Current occupational status: retired and disabled Cognitive needs: Yes (walker) Hearing needs: No Vision needs: Yes (glasses) Review of Systems Const All systems reviewed & are unremarkable except as noted in HPI and below Physical Exam Vital Signs: BMI result Body Mass Index 30.9 Const General: cooperative and no acute distress Orientation/consciousness: patient oriented x3 Resp Effort & Inspection: normal respiratory effort and able to speak in complete sentences Cardio Peripheral pulses: Peripheral pulses 2+ throughout Neuro General: patient oriented x3 Extrem Other: Right knee is normal to inspection. No erythema or joint effusion present. Full range of motion with crepitus and medial-sided tenderness present. Calf supple and nontender neurovascularly intact. Results Reviewed Results Reviewed: IMPRESSION: Moderate to severe tricompartmental DJD with moderate-sized knee joint effusion. Assessment & Plan Assessment & Plan (1) Osteoarthritis of right knee: Code(s): M17.11 - Unilateral primary osteoarthritis, right knee Category: Medical (2) Patellofemoral arthritis of right knee: Code(s): M17.11 - Unilateral primary osteoarthritis, right knee Category: Medical Plan We discussed options which include physical therapy to work on strengthening conditioning exercises. I did place an order for the contact information to make an appointment. We discussed the benefits of steroid injections and how it can help with pain he will inflammation. She would like to hold off on injections at this time. She will continue with [id number] medications such as Motrin or Tylenol. She was also fit for a knee brace while in the office today. If there is any questions or concerns she will contact our office otherwise she will follow up as needed. Orders: Orders PT Evaluation and Treatment Today M17.11 - Unilateral primary osteoarthritis, right knee Coding Level of Care Code New Pt Level 3 (91594) Complex EM visit Add On G2211 Diagnoses Osteoarthritis of right knee M17.11 Patellofemoral arthritis of right knee M17.11
[2024-12-29 14:20] VITALS: BMI 30.9
--- OUTSIDE RECORDS SUMMARY | 2024-12-29 14:55 | XMS_ITS | Clinical Summary ---
Author Organization [facility] Address [address] [place] [address] Phone Care Team Providers Care Canal Tender Name Role Phone Rashid Bailon MD Primary Care Provider [phone] Allergies No known active allergies Medications No known medications Surgical History Surgery Date Site/Laterality Comments TONSILLECTOMY PROCEDURE: HISTORICAL TONSILLECTOMY OTHER SURGICAL HISTORY PROCEDURE: [place] TOTAL ABDOMINAL HYSTERECT W/WO RMVL TUBE OVARY APPENDECTOMY PROCEDURE: [place] APPENDECTOMY TUBAL LIGATION PROCEDURE: HISTORICAL TUBAL LIGATION [...] patient's age to complete this topic Insurance [facility] MEDICARE Member Subscriber Plan / Payer (Ef fective 2013-Present) Name:Julia Franz Relation to Subscriber:Self Name:Julia Franz Payer ID:[id number] Group ID:[id number] Type:Not on file Address: [address] [place] [address] Care Teams Canal Tender Relationship Specialty Start Date End Date Rashid Bailon MD PCP - General Internal Medicine 04/11/24
== END 2024-12-29 15:24 | disposition home or self-care (01) ==
LOC: HO.HOS 14:09
PROVIDERS: PCP Internal Medicine; Visit Provider Physician Assistant
DX: M17.11 Unilateral primary osteoarthritis, right knee (principal)
CPT/HCPCS: 99203; G2211

== ENCOUNTER → 2024-12-29 14:08 | Outpatient (BNVA) | payer OTHER, SELFPAY | PROVIDERS: PCP Internal Medicine; Visit Provider Physician Assistant | DX: M17.11 Unilateral primary osteoarthritis, right knee (principal) | CPT/HCPCS: 99202 ==

== ENCOUNTER 2025-01-02 10:24 | Outpatient (AMB) | payer OTHER, SELFPAY ==
--- OUTSIDE RECORDS SUMMARY | 2025-01-02 10:27 | XMS_ITS | Clinical Summary ---
Author Organization [facility] Address [address] [place] [address] Phone Care Team Providers Care Retail District Manager Name Role Phone Rashid Bailon MD Primary Care Provider [phone] Allergies No known active allergies Medications No known medications Surgical History Surgery Date Site/Laterality Comments TONSILLECTOMY PROCEDURE: HISTORICAL TONSILLECTOMY OTHER SURGICAL HISTORY PROCEDURE: [place] TOTAL ABDOMINAL HYSTERECT W/WO RMVL TUBE OVARY APPENDECTOMY PROCEDURE: [place] APPENDECTOMY TUBAL LIGATION PROCEDURE: HISTORICAL TUBAL LIGATION [...] patient's age to complete this topic Insurance [facility] MEDICARE Member Subscriber Plan / Payer (Ef fective 2013-Present) Name:Julia Franz Relation to Subscriber:Self Name:Julia Franz Payer ID:[id number] Group ID:[id number] Type:Not on file Address: [address] [place] [address] Care Teams Retail District Manager Relationship Specialty Start Date End Date Rashid Bailon MD PCP - General Internal Medicine 04/11/24
--- NOTE | 2025-01-02 10:33 | MHC.PC.OV ---
Vital Signs 01/02/25 10:35 Height 5 ft 5 in Weight 186 lb 8 oz BMI 31.0 BP 122/66 Blood Pressure Location Lt brachial Position Sitting Pulse 80 Pulse Source Pulse Oximeter Pulse Oximetry (%) 98 Oxygen Delivery Method Room Air Intake Visit Reasons: [facility] Upper eyelid surgery 01/22 Oracle Technical Architect Required: No Accompanied by: Self / Same As Patient Allergies aspirin (ASPIRIN) Allergy (Unknown, Verified 01/02/25 10:50) RASH, swelling atorvastatin Allergy (Unknown, Verified 01/02/25 10:50) Unknown ibuprofen (From Motrin) Allergy (Unknown, Verified 01/02/25 10:50) rash,swelling lisinopril Allergy (Unknown, Verified 01/02/25 10:50) Unknown simvastatin Allergy (Unknown, Verified 01/02/25 10:50) interaction with cardizem Medication List - Last Reconciled 01/02/25 by Irma Thornton PA-C acetaminophen ER 650 mg PO Q8H PRN amitriptyline 25 mg PO DAILY calcium carbonate (Oyster Shell Calcium) 500 mg PO DAILY 90 days carvedilol 6.25 mg PO BID 90 days cholecalciferol (vitamin D3) 25 mcg PO DAILY clopidogrel 75 mg PO DAILY cyanocobalamin (vitamin B-12) (Vitamin B-12) 1,000 mcg PO DAILY diclofenac sodium 1% (Arthritis Pain (diclofenac)) 4 grams topical QID diltiazem HCl CD 240 mg PO DAILY dorzolamide-timolol 22.3-6.8 mg/mL ophthalmic (eye) erythromycin 0.5 inches ophthalmic (eye) TID estradiol 0.01%(0.1mg/gram) pea-sized to urethra 3 times a week 90 days latanoprost 0.005% drps ophthalmic (eye) levothyroxine 100 mcg orally One tablet once a day except for Sunday; netarsudil 0.02% (Rhopressa) 0 drps ophthalmic (eye) rosuvastatin 10 mg PO DAILY 30 days [SHOWER CHAIR As directed] spironolactone 25 mg PO DAILY timolol maleate 0.5% 0 drps ophthalmic (eye) Tobacco use date assessed: 01/02/25 Fall risk assessment: No Falls in past year Last assessed Fall Risk: 01/02/25 Dental Screening Dental Screen Date: 01/02/25 Did you have a dental visit in the last 12 months?: No Did you have a dental problem in the last 6 months where you did not have access to dental care?: No Was dental information given to patient?: No HPI [facility] Upper eyelid surgery 01/22 HPI Details 79 year old female with past medical history of hypertension, hypothyroid, asthma, hypercholesterolemia, CHF, coronary artery disease, SVT, and axonal neuropathy last seen 11/[address] Bailon coming in for pre op. Patient is scheduled to have upper eyelid surgery with [facility] with Dr. Lopez 01/22/2025. hypertension: blood pressure well controlled on diltiazem and carvedilol 122/66 CHF: Clinically euvolemic today and currently on spirolonactone and carvedilol SVT: Follows with cardiology and controlled with clopidogrel and Diltiazem Patient has no history DC, CVA or DM. She has had anesthesia and surgery in the past without complication. [facility] Medical History COVID-19 virus infection Dysuria Loss of weight Chest pain Elbow pain, left Colon cancer screening Colonoscopy refused Coronary artery disease Knee osteoarthritis Congestive heart failure Migraine Peripheral vascular disease Benign hematuria SVT (supraventricular tachycardia) Hypercholesterolemia Vitamin D deficiency Asthma Hypothyroid Hypertension Obesity (BMI 30-39.9) Peroneal neuropathy Surgical History History of cataract surgery History of appendectomy History of lumpectomy of right breast History of tonsillectomy History of total abdominal hysterectomy and bilateral salpingo-oophorectomy History of tubal ligation Family History Father No problems noted. Mother Hypertension CVD (cardiovascular disease) Social History Housing: Apartment Alcohol intake: never Patient Tobacco Use Status: Never used Tobacco Tobacco use type: Cigarette e-Cigarette/Vaping Use: Never Used Second Hand Smoke Exposure: No service: No Current occupational status: retired and disabled Cognitive needs: Yes (walker) Hearing needs: No Vision needs: Yes (glasses) Questionnaire PHQ-9 Over the last 2 weeks, how often have you been bothered by any of the following problems? 1. Little interest or pleasure in doing things: not at all 2. Feeling down, depressed, or hopeless: not at all 3. Trouble falling or staying asleep, or sleeping too much: nearly every day 4. Feeling tired or having little energy: several days 5. Poor appetite or overeating: not at all 6. Feeling bad about yourself - or that you are a failure or have let yourself or your family down: not at all 7. Trouble concentrating on things, such as reading the newspaper or watching television: not at all 8. Moving or speaking so slowly that other people could have noticed. Or the opposite - being so fidgety or restless that you have been moving around a lot more than usual: not at all 9. Thoughts that you would be better off or of hurting yourself in some way: not at all Total score: 4 Source: Developed by Drs. Gautam Marshall, Virginia Parish, Solo Mesa and colleagues, with an educational puja from [employer]. Thrive Questionnaire Date Thrive assessed: 12/03/24 I am a: Patient What is your living situation today?: I have a steady place to live Within the past 12 months, did the food you bought not last and you didn't have the money to get more?: Never true Within the past 12 months, did you worry whether your food would run out before you got money to buy more?: Never true Do you have trouble paying for medicines?: No Do you have trouble getting transportation to medical appointments?: No Do you have trouble paying your heating and electricity bill?: No Do you have trouble taking care of your child, family member or friend?: No Do you have trouble with day-to-day activities such as bathing, preparing meals, shopping, managing finances, etc.?: No Are you currently unemployed and looking for a job?: No Are you interested in more education?: No Please select the resources that you would like help with: None THRIVE Score: 0 AUDIT C Alcohol Use Questionnaire (AUDIT-C) 1. How often do you have a drink containing alcohol?: Never 3. How often do you have six or more drinks on one occasion?: Never Total Score: 0 ANJU-7 AMB Questionnaire ANJU-7 Date ANJU - 7 assessed: 05/15/24 Feeling nervous, anxious, or on edge: 0 = Not at all Not being able to stop or control worryin = Not at all Worrying too much about different things: 0 = Not at all Trouble relaxin = Not at all Being so restless that it is hard to sit still: 0 = Not at all Becoming easily annoyed or irritable: 0 = Not at all Feeling afraid as if something awful might happen: 0 = Not at all Total ANJU-7 score (0-4 normal; 5-9 mild; 10-14 moderate; 15-21 severe): 0 Source: Developed by Drs. Gautam Marshall, Virginia Parish, Solo Mesa and colleagues, with an educational puja from [employer]. Review of Systems Const Denies body aches, Denies fatigue, Denies fever(s), Denies frequent falls, Denies headache(s) and Denies weakness Eyes Reports no additional complaints and Denies change in vision ENT Denies dizziness, Denies facial pain, Denies headache(s) and Denies nasal congestion Card Denies chest pain, Denies syncope, Denies irregular heart rhythm, Denies leg edema, Denies lightheadedness and Denies dyspnea Resp Denies cough and Denies dyspnea GI Denies abdominal pain, Denies dyspepsia, Denies diarrhea, Denies nausea and Denies vomiting Denies urinary frequency, Denies dysuria, Denies urinary hesitancy and Denies urinary urgency Musc Denies back pain and Denies myalgias Skin/Breast Reports system reviewed and no additional complaints, except as documented Neuro Denies dizziness, Denies syncope, Denies frequent falls, Denies headache(s) and Denies weakness Psych Reports no additional complaints Endo Denies fatigue Physical exam (Primary Care) Vital Signs: Last Vital Signs Pulse 80 01/02/25 10:35 BP 122/66 01/02/25 10:35 Pulse Ox 98 01/02/25 10:35 Oxygen Delivery Method Room Air 01/02/25 10:35 BMI result Body Mass Index 31.0 Tobacco/Smoking Status: Tobacco use Status Tobacco use date assessed 01/02/25 01/02/25 10:36 Patient Tobacco Use Status Never used Tobacco 01/02/25 10:36 Tobacco use type Cigarette 01/02/25 10:36 e-Cigarette/Vaping Use Never Used 01/02/25 10:36 PHQ-9: PHQ-9 Score PHQ-9: Total score 4 01/02/25 10:36 Thrive Assessment: Date of Thrive Assessment Date Thrive assessed 12/03/24 01/02/25 10:36 Const General: cooperative, healthy appearing, comfortable and no acute distress Orientation/consciousness: patient oriented x3 HENMT Head: Yes normocephalic Ears: hearing grossly normal bilaterally General nose exam: Normal external nose present Eyes General: appearance normal, both eyes and all related structures Conjunctivae: conjunctivae normal Neck Neck: Yes full ROM and Yes no lymphadenopathy Resp Effort & Inspection: normal respiratory effort Auscultation: clear to auscultation bilaterally, no crackles, no rales, no rhonchi and no wheezes Cardio Rate: regular rate Rhythm: regular rhythm Skin General skin exam: no rashes or lesions noted Neuro General: patient oriented x3 Gait exam (Neuro): Normal gait present Extrem General: Yes normal to inspection, Yes full ROM and No edema Psych Affect: normal affect Attitude: cooperative Insight: Good insight present (Psych) Judgement: Good judgement present (Psych) Coding Level of Care Code Est Pt Level 3 (69567) Diagnoses Pre-op evaluation Z01.818 Assessment & Plan Assessment & Plan (1) Pre-op evaluation: Code(s): Z01.818 - Encounter for other preprocedural examination Category: Medical Plan: Regarding preop clearance, the patient is at moderate risk for proposed surgery due to age and comorbidities. Reviewed with the patient that no surgery is completely free of risk and that this examination is to assist the surgeon in reviewing informed consent. I do not recommend discontinuing the clopidogrel prior to surgery. She may take all prescribed medications up until the day of the procedure unless otherwise instructed by the surgeon. I did order for updated blood work and EKG for further evaluation prior to surgical clearance. Surgical clearance he will be given after evaluation of blood work and EKG. Plan This note was constructed using voice recognition software. While every effort has been made to ensure accuracy and quality assurance qa lab analyst, still areas may have been included sometimes these areas may affect the content or meeting of the given symptoms. Total time spent caring for the patient today was 20 minutes. This includes time spent before the visit reviewing the chart, time spent during the visit, and time spent after the visit and documentation. Orders: Orders Comprehensive Met. Panel Today Z01.818 - Encounter for other preprocedural examination ECG 12 lead EKG Today Z01.818 - Encounter for other preprocedural examination Complete Blood Count Auto Diff Today Z01.818 - Encounter for other preprocedural examination
[2025-01-02 10:35] VITALS: BP 122/66; PULSE 80; O2SAT 98; BMI 31.0
== END 2025-01-02 11:28 | disposition home or self-care (01) ==
LOC: HO.HMCH 10:25
PROVIDERS: PCP Internal Medicine
DX: Z01.818 Encounter for other preprocedural examination (principal)

== ENCOUNTER → 2025-01-02 10:24 | Outpatient (BNVA) | payer OTHER, SELFPAY | PROVIDERS: PCP Internal Medicine | DX: Z01.818 Encounter for other preprocedural examination (principal); I10 Essential (primary) hypertension; E03.9 Hypothyroidism, unspecified; J45.909 Unspecified asthma, uncomplicated; E78.00 Pure hypercholesterolemia, unspecified; I50.9 Heart failure, unspecified; I25.10 Atherosclerotic heart disease of native coronary artery without angina pectoris | CPT/HCPCS: 96127; 99212 ==

== ENCOUNTER 2025-01-09 09:27 | Outpatient (REF) | payer OTHER, SELFPAY ==
[2025-01-09 09:49] LABS: MANUAL DIFF FLAG NO
--- NOTE | 2025-01-09 09:57 | ECG_ITS ---
Test Reason : pre op Blood Pressure : */* mmHG Vent. Rate : 63 BPM Atrial Rate : 63 BPM P-R Int : 170 ms QRS Dur : 100 ms QT Int : 416 ms P-R-T Axes : 46 -4 104 degrees QTcB Int : 425 ms Normal sinus rhythm Incomplete right bundle branch block Moderate voltage criteria for LVH, may be normal variant ( R in aVL , [place] product ) Nonspecific ST and T wave abnormality Abnormal ECG When compared with ECG of 21-Feb-2024 15:38, Incomplete right bundle branch block is now Present T wave inversion no longer evident in Lateral leads Referred By: Irma Thornton Electronically Signed By: ADDI PERRY
--- OUTSIDE RECORDS SUMMARY | 2025-01-09 10:16 | XMS_ITS | Clinical Summary ---
Author Organization [facility] Address [address] [place] [address] Phone Care Team Providers Care Mercantile Agent Name Role Phone Rashid Bailon MD Primary Care Provider [phone] Allergies No known active allergies Medications No known medications Surgical History Surgery Date Site/Laterality Comments TONSILLECTOMY PROCEDURE: HISTORICAL TONSILLECTOMY OTHER SURGICAL HISTORY PROCEDURE: OK TOTAL ABDOMINAL HYSTERECT W/WO RMVL TUBE OVARY APPENDECTOMY PROCEDURE: OK APPENDECTOMY TUBAL LIGATION PROCEDURE: HISTORICAL TUBAL LIGATION [...] [facility] MEDICARE Member Subscriber Plan / Payer (Ef fective 2013-Present) Name:Julia Franz Relation to Subscriber:Self Name:Julia Franz Payer ID:[id number] Group ID:[id number] Type:Not on file Address: [address] [place] [id number] Care Teams Mercantile Agent Relationship Specialty Start Date End Date Rashid Bailon MD PCP - General Internal Medicine 04/11/24
[2025-01-09 10:39] LABS: Hematocrit 38.7 % (37.0-47.0); Hemoglobin 12.8 g/dl (12.0-16.0); Imm Gran Abs Auto 0.01 X10*3/uL (0.00-0.03); Imm Gran Pct Auto 0.1 % (0.0-0.4); Lymphocytes Absolute Auto 2.0 X10*3/uL (1.2-4.9); Mean Corpuscular HGB Conc 33.1 g/dl (31.0-35.0); Mean Corpuscular Hemoglobin 29.6 pg (27.0-33.0); Mean Corpuscular Volume 89.6 fL (80.0-98.0); NRBC Abs Auto 0.000 X10*3/uL (0.0-0.012); NRBC Pct Auto 0.0 /100WBC (0.0-0.2); Platelet Count 242 X10*3/uL (160-400); Red Blood Count 4.32 X10*6/uL (4.20-5.50); White Blood Count 6.8 X10*3/uL (4.8-10.8)
[2025-01-09 11:14] LABS: Alanine Aminotransferase 11 U/L (0-31); Albumin Level 4.3 g/dL (3.5-5.0); Alkaline Phosphatase 59 U/L (39-117); Anion Gap 9 (12-20); Aspartate Amino Transferase 22 U/L (5-31); Blood Urea Nitrogen 19 mg/dL (9-16); Calcium 9.8 mg/dL (8.4-10.2); Carbon Dioxide 30 mmol/L (22-29); Chloride 106 mmol/L (96-108); Estimated Glomerular Filt Rate 48; Potassium 4.0 mmol/L (3.3-5.1); Sodium 141 mmol/L (135-145); Total Protein 7.7 g/dL (6.5-8.0)
== END 2025-01-09 09:28 | disposition home or self-care (01) ==
LOC: HO.LAB 09:27
PROVIDERS: PCP Internal Medicine
DX: Z01.810 Encounter for preprocedural cardiovascular examination (principal)
CPT/HCPCS: 36415; 80053; 85025; 93005

== ENCOUNTER → 2025-01-09 09:57 | Outpatient (BNV) | payer OTHER, SELFPAY | PROVIDERS: PCP Internal Medicine; Visit Provider Internal Medicine | DX: I45.10 Unspecified right bundle-branch block (principal); I51.7 Cardiomegaly | CPT/HCPCS: 93010 ==

== ENCOUNTER 2025-02-10 09:00 | Outpatient (RCR) | payer OTHER, SELFPAY ==
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
--- NOTE | 2025-02-10 16:00 | MHC.PT.DC ---
[facility] [place] Office [place] Office [place] Office [address] Adonis Kim [address] [facility] [phone] F: [phone] F: [phone] F: [phone] F: [phone] Physical Therapy Discharge Report Diagnosis: patellofemoral arthritis of right knee (RL) Date of Surgery: N/A Date of Evaluation: 01/16/25 Date of Discharge: 02/10/25 Treatments to Date: 4 Cancellations to Date: 0 No Shows to Date: 0 Discharge Status: Patient Elected to Stop Discharge Summary: Pt discussed with this therapist her desire to discontinue therapy. Pt feels like therapy is not working and does not see a point or reason to continue. This therapist edu Pt on importance of maintaining her current strength and ROM through continued PT but patient refused. This therapist consulted with evaluating PT in regards to patient report and decided that if the patient no longer wants to continue therapy, she can be d/c. Pt self d/c. Electronically signed by: Sherri Charlton PT, DPT Please sign and return to therapist. Thank you for your referral.
== END 2025-02-10 16:00 | disposition home or self-care (01) ==
LOC: HO.PT 09:00
PROVIDERS: PCP Internal Medicine; Visit Provider Physician Assistant
DX: M17.11 Unilateral primary osteoarthritis, right knee (principal)
CPT/HCPCS: 97110; 97112; 97162

== ENCOUNTER 2025-03-24 07:22 | Outpatient (REF) | payer OTHER, SELFPAY ==
--- OUTSIDE RECORDS SUMMARY | 2025-03-24 07:26 | XMS_ITS | Clinical Summary ---
Author Organization [facility] Address [address] [place] [address] Phone Care Team Providers Care Fish Tender Name Role Phone Rashid Bailon MD Primary Care Provider [phone] Allergies No known active allergies Medications No [...] 04/16/2022 Social Influencers of Health Screening 04/16/2022 Depression Screening 05/14/2024 COVID-19 Vaccine (1 - 2024-2 6 season) 2025 Influenza Vaccine (#1) 2025 HIB Vaccines Aged [...] patient's age to complete this topic Insurance [facility] MEDICARE Member Subscriber Plan / Payer (Ef fective 2013-Present) Name:Julia Franz Relation to Subscriber:Self Name:Julia Franz Payer ID:[id number] Group ID:[id number] Type:Not on file Address: [address] [place] [address] Care Teams Fish Tender Relationship Specialty Start Date End Date Rashid Bailon MD PCP - General Internal Medicine 04/11/24
[2025-03-24 08:10] LABS: Alanine Aminotransferase 10 U/L (0-31); Albumin Level 4.2 g/dL (3.5-5.0); Alkaline Phosphatase 62 U/L (39-117); Anion Gap 11 (12-20); Aspartate Amino Transferase 31 U/L (5-31); Blood Urea Nitrogen 13 mg/dL (9-16); Calcium 10.0 mg/dL (8.4-10.2); Carbon Dioxide 30 mmol/L (22-29); Chloride 106 mmol/L (96-108); Cholesterol 156 mg/dL (<200); Estimated Glomerular Filt Rate 54; HDL Cholesterol 42 mg/dL (>40); Potassium 4.6 mmol/L (3.3-5.1); Sodium 142 mmol/L (135-145); Total Protein 7.7 g/dL (6.5-8.0); Triglycerides 89 mg/dL (<150)
[2025-03-24 14:20] LABS: Appearance Urine Cloudy; Glucose Urine UA Negative (Negative); PH 6.0 (5.0-9.0); Specific Gravity - Urine 1.025 (1.005-1.025); UMIC TRIGGER UACC YES
[2025-03-24 14:26] LABS: UACC Culture Trigger YES
== END 2025-03-24 07:23 | disposition home or self-care (01) ==
LOC: HO.LAB 07:22
PROVIDERS: PCP Internal Medicine; Visit Provider Internal Medicine
DX: R30.0 Dysuria (principal); E78.00 Pure hypercholesterolemia, unspecified; R31.9 Hematuria, unspecified
CPT/HCPCS: 36415; 80053; 80061; 81001; 81003; 87086

== ENCOUNTER 2025-03-26 09:10 | Outpatient (AMB) | payer OTHER, SELFPAY ==
[2025-03-26 09:30] VITALS: BP 128/78; PULSE 75; O2SAT 97
--- NOTE | 2025-03-26 09:30 | A.OFFPC_ITS ---
Vital Signs 03/26/25 09:30 Height 5 ft 5 in Weight 180 lb BMI 30.0 BP 128/78 Blood Pressure Location Lt brachial Position Sitting Pulse 75 Pulse Source Pulse Oximeter Pulse Oximetry (%) 97 Oxygen Delivery Method Room Air Intake Visit Reasons: cad, hypercholesterol Allergies aspirin (ASPIRIN) Allergy (Unknown, Verified 03/26/25 09:30) RASH, swelling atorvastatin Allergy (Unknown, Verified 03/26/25 09:30) Unknown ibuprofen (From Motrin) Allergy (Unknown, Verified 03/26/25 09:30) rash,swelling lisinopril Allergy (Unknown, Verified 03/26/25 09:30) Unknown simvastatin Allergy (Unknown, Verified 03/26/25 09:30) interaction with cardizem Medication List - Last Reconciled 03/26/25 by Rashid Bailon MD acetaminophen ER 650 mg PO Q8H PRN amitriptyline 25 mg PO DAILY calcium carbonate (Oyster Shell Calcium) 500 mg PO DAILY 90 days carvedilol 6.25 mg PO BID 90 days cholecalciferol (vitamin D3) 25 mcg PO DAILY clopidogrel 75 mg PO DAILY cyanocobalamin (vitamin B-12) (Vitamin B-12) 1,000 mcg PO DAILY diclofenac sodium 1% (Arthritis Pain (diclofenac)) 4 grams topical QID diltiazem HCl CD 240 mg PO DAILY dorzolamide-timolol 22.3-6.8 mg/mL ophthalmic (eye) erythromycin 0.5 inches ophthalmic (eye) TID estradiol 0.01%(0.1mg/gram) pea-sized to urethra 3 times a week 90 days latanoprost 0.005% drps ophthalmic (eye) levothyroxine 100 mcg orally One tablet once a day except for Sunday; netarsudil 0.02% (Rhopressa) 0 drps ophthalmic (eye) rosuvastatin 10 mg PO DAILY 30 days [SHOWER CHAIR As directed] spironolactone 25 mg PO DAILY timolol maleate 0.5% 0 drps ophthalmic (eye) Tobacco use date assessed: 01/02/25 Fall risk assessment: No Falls in past year Last assessed Fall Risk: 03/26/25 Dental Screening Dental Screen Date: 01/02/25 [facility] Medical History COVID-19 virus infection Dysuria Loss of weight Chest pain Elbow pain, left Colon cancer screening Colonoscopy refused Coronary artery disease Knee osteoarthritis Congestive heart failure Migraine Peripheral vascular disease Benign hematuria SVT (supraventricular tachycardia) Hypercholesterolemia Vitamin D deficiency Asthma Hypothyroid Hypertension Obesity (BMI 30-39.9) Peroneal neuropathy Surgical History History of cataract surgery History of appendectomy History of lumpectomy of right breast History of tonsillectomy History of total abdominal hysterectomy and bilateral salpingo-oophorectomy History of tubal ligation Family History Father No problems noted. Mother Hypertension CVD (cardiovascular disease) Social History Housing: Apartment Alcohol intake: never Patient Tobacco Use Status: Never used Tobacco Tobacco use type: Cigarette e-Cigarette/Vaping Use: Never Used Second Hand Smoke Exposure: No service: No Current occupational status: retired and disabled Cognitive needs: Yes (walker) Hearing needs: No Vision needs: Yes (glasses) Questionnaire PHQ-9 Over the last 2 weeks, how often have you been bothered by any of the following problems? 1. Little interest or pleasure in doing things: not at all 2. Feeling down, depressed, or hopeless: not at all 3. Trouble falling or staying asleep, or sleeping too much: nearly every day 4. Feeling tired or having little energy: several days 5. Poor appetite or overeating: not at all 6. Feeling bad about yourself - or that you are a failure or have let yourself or your family down: not at all 7. Trouble concentrating on things, such as reading the newspaper or watching television: not at all 8. Moving or speaking so slowly that other people could have noticed. Or the opposite - being so fidgety or restless that you have been moving around a lot more than usual: not at all 9. Thoughts that you would be better off or of hurting yourself in some way: not at all Total score: 4 Depression Screening Interpretation: Positive Depression Screening Done: Yes Source: Developed by Drs. Gautam L. Virginia Marshall Kurt Kroenke and colleagues, with an educational puja from [employer]. Thrive Questionnaire Date Thrive assessed: 12/03/24 I am a: Patient What is your living situation today?: I have a steady place to live Within the past 12 months, did the food you bought not last and you didn't have the money to get more?: Never true Within the past 12 months, did you worry whether your food would run out before you got money to buy more?: Never true Do you have trouble paying for medicines?: No Do you have trouble getting transportation to medical appointments?: No Do you have trouble paying your heating and electricity bill?: No Do you have trouble taking care of your child, family member or friend?: No Do you have trouble with day-to-day activities such as bathing, preparing meals, shopping, managing finances, etc.?: No Are you currently unemployed and looking for a job?: No Are you interested in more education?: No Please select the resources that you would like help with: None Currently or been in a relationship where the following occur: No concerns reported THRIVE Score: 0 AUDIT C Alcohol Use Questionnaire (AUDIT-C) 1. How often do you have a drink containing alcohol?: Never 3. How often do you have six or more drinks on one occasion?: Never Total Score: 0 ANJU-7 AMB Questionnaire ANJU-7 Date ANJU - 7 assessed: 05/15/24 Source: Developed by Drs. Gautam Marshall, Solo Gonzales and colleagues, with an educational puja from [employer]. Physical exam (Primary Care) Vital Signs: Last Vital Signs Pulse 75 03/26/25 09:30 BP 128/78 03/26/25 09:30 Pulse Ox 97 03/26/25 09:30 Oxygen Delivery Method Room Air 03/26/25 09:30 BMI result Body Mass Index 30.0 Tobacco/Smoking Status: Tobacco use Status Tobacco use date assessed 01/02/25 03/26/25 09:35 Patient Tobacco Use Status Never used Tobacco 03/26/25 09:35 Tobacco use type Cigarette 03/26/25 09:35 e-Cigarette/Vaping Use Never Used 03/26/25 09:35 PHQ-9: PHQ-9 Score PHQ-9: Total score 4 03/26/25 10:09 Depression Screening Interpretation: Positive Thrive Assessment: Date of Thrive Assessment Date Thrive assessed 12/03/24 03/26/25 09:35 Currently or been in a relationship where the following occur: No concerns reported Const General: alert; No acute distress Eyes Conjunctivae: conjunctivae normal Resp Auscultation: clear to auscultation bilaterally Cardio Rate: regular rate Rhythm: regular rhythm GI Inspection: Yes normal to inspection Extrem General: Yes normal to inspection and No edema Office Procedures Flu Questionnaire Does the patient have a severe egg allergy?: No Does the patient have severe life threatening allergies?: No Does the patient have a fever or illness today?: No Has the patient ever had Guillain-[place] Syndrome?: No Has the patient ever had any past reaction to a flu shot?: No Immunizations Fluarix [id number] (PF) 45 mcg (15 mcg x 3)/0.5 mL IM syringe Performing Provider: Rashid Bailon MD [facility] Administered by: Ina Naik CMA on 03/26/25 10:09 Dose Route Admin Location Dispensed Lot Number Expiration Date NDC Regulatory Compliance Specialist 0.5 mL IM Left Deltoid 0.5 mL [id number] 11/10/25 [id number] [employer] VIS Given Date VIS Provided VIS Publication Date 03/26/25 Single Vaccine 24 Eligibility Eligibility Date Funding Source Not [facility] Eligible 03/26/25 Private Coding Level of Care Code Est Pt Level 4 (60962) Complex EM visit Add On G2211 Diagnoses Acquired hypothyroidism E03.9 Hypothyroidism type: acquired Obesity (BMI 30-39.9) E66.9 Osteopenia M85.80 Hypercholesterolemia E78.00 Coronary artery disease involving [place] coronary artery of [place] heart without angina pectoris I25.10 Associated angina: without angina Coronary Disease-Associated Artery/Lesion type: [place] artery [place] vs. transplanted heart: [place] heart Essential hypertension I10 Hypertension type: essential hypertension Assessment & Plan Assessment & Plan (1) Hypothyroid: Code(s): E03.9 - Hypothyroidism, unspecified Category: Medical Qualifiers: Hypothyroidism type: acquired Qualified Code(s): E03.9 - Hypothyroidism, unspecified Plan: Continue with thyroid medication (2) Obesity (BMI 30-39.9): Code(s): E66.9 - Obesity, unspecified Category: Medical Plan: Diet and exercise (3) Osteopenia: Code(s): M85.80 - Other specified disorders of bone density and structure, unspecified site Category: Medical Plan: Patient was advised to have a other bone density is a follow-up (4) Hypercholesterolemia: Code(s): E78.00 - Pure hypercholesterolemia, unspecified Category: Medical Plan: Avoid fried foods, chicken skin, eggs, butter margarine, pastries and meat. Be it pork or beef they have a lot of cholesterol LDL goal of less than 70 and triglyceride of less than 150 on rosuvastatin 10 mg once a day (5) Coronary artery disease: Comment: nstemi September 2017 SVT, January 2018 hypertrophic cardiomyopathy, December 2018 normal LV function mild hypertrophy, Holter normal December 2018, December 2019 echo normal ejection fraction with septal hypertrophy a symmetric mild left atrial enlargement Lexiscan stress test July 2022 negative Code(s): I25.10 - Atherosclerotic heart disease of [place] coronary artery without angina pectoris Category: Medical Qualifiers: Associated angina: without angina Coronary Disease-Associated Artery/Lesion type: [place] artery [place] vs. transplanted heart: [place] heart Qualified Code(s): I25.10 - Atherosclerotic heart disease of [place] coronary artery without angina pectoris Plan: Control the cholesterol, weight, blood pressure, diabetes patient is on clopidogrel 75 mg once a day (6) Hypertension: Code(s): I10 - Essential (primary) hypertension Category: Medical Qualifiers: Hypertension type: essential hypertension Qualified Code(s): I10 - Essential (primary) hypertension Plan: Continue with blood pressure medication. Decrease salt intake and exercise takes carvedilol 6.25 mg twice a day diltiazem 240 mg once a day and spironolactone 25 mg once a day Plan History of Present Illness The patient is an 79-year-old obese female presenting for a follow-up visit, having last been seen for a preoperative evaluation in December 2021. She has a history of hypertension, hypothyroidism, asthma, hypercholesterolemia, congestive heart failure, and coronary artery disease. A 6-pound weight loss has been noted. Her planned eyelid surgery, initially scheduled for January, has been postponed to May. Recent lab work from January 09 showed a normal blood count, electrolytes, renal function, blood sugar, and liver function. A urinalysis at that time revealed some white blood cells. Her LDL cholesterol has fluctuated this year, measuring 102 mg/dL in May, 86 mg/dL in August, and most recently 97 mg/dL. In terms of health maintenance, her last bone density scan was in 2022, and her next mammogram is scheduled for September 2024. Her medications include rosuvastatin 10 mg daily for cholesterol, clopidogrel 75 mg daily for coronary artery disease, and a regimen of carvedilol 6.25 mg twice daily, diltiazem 240 mg daily, and spironolactone 25 mg daily for blood pressure. She also reports knee pain, which has been attributed to arthritis. Health Maintenance The patient will receive an influenza vaccination today. A request will be made for a follow-up bone density scan, as the last one was performed in 2022. The patient will continue her other medications, including for hypothyroidism, with refills managed automatically by her pharmacy. She will proceed with her rescheduled eyelid surgery in May. Social History - Living Situation & Support: A family member accompanied the patient and served as an drafter patent during the visit. - Diet: The patient reportedly eats very little, and her meals are often prepared by her mother or other family members. - Medication Management: Her medications are managed by [facility], which provides them in pre-packaged capsules. Review of Systems - Constitutional: Reports a 6-pound weight loss. - Eyes: Reports being up to date with vision care. - Gastrointestinal: Reports regular bowel movements. - Genitourinary: Reports normal urination. - Musculoskeletal: Reports knee pain. Physical Exam Results - Labs (from January 09): - CBC: Normal. - Electrolytes: Normal. - Renal function: Normal. - Blood sugar: Normal. - Liver function: Normal. - Urinalysis: Positive for some white blood cells. - Cholesterol Panel (recent): LDL is 97 mg/dL. - Cholesterol Panel Trend: LDL was 102 mg/dL in May 2022 and 86 mg/dL in August 2022. - Tests and Diagnostics: - Bone Density: Last completed in 2022. Plan Patient was informed and verbally consented to the use of an ambient scribe for clinic note documentation during this visit. 1. Hypercholesterolemia The patient's LDL cholesterol is 97 mg/dL, which remains above the goal of less than 70 mg/dL for secondary prevention in patients with coronary artery disease. She is currently on a low dose of rosuvastatin. The dose of rosuvastatin will be increased to achieve the target LDL goal. The patient was counseled on the importance of dietary management in addition to medication to prevent future cardiac events. A concern raised by the patient about cholesterol medication affecting the lungs was addressed and clarified as not being a known side effect. 2. Coronary Artery Disease The patient remains stable from a CAD perspective. She will continue her current regimen of clopidogrel 75 mg daily. Aggressive management of her hypercholesterolemia is a alvarez component of her CAD management. 3. Essential Hypertension The patient will continue her current antihypertensive medications, which include carvedilol, diltiazem, and spironolactone. The importance of monitoring dietary sodium was reinforced. 4. Osteoarthritis Of The Knee The patient reports knee pain consistent with her diagnosis of arthritis, which is related to bone structure. She will continue to use a topical gel for symptomatic relief. Discussion Notes I reviewed the patient's recent lab results with her and her family member. I noted that while her kidney function, electrolytes, and liver function are normal, her LDL cholesterol is 97 mg/dL, which is above the recommended goal of less than 70 mg/dL given her history of heart disease. I explained the importance of lowering her cholesterol to prevent heart attacks. The patient expressed that her concrete boom pump operator tells her everything is fine, and I clarified that while her congestive heart failure may be stable, cardiology guidelines require aggressive cholesterol management to prevent future events. Based on this, I recommended increasing her dose of rosuvastatin, and she agreed. I also addressed her concern about cholesterol medication affecting her lungs, reassuring her that this is not a known side effect. We discussed ordering a new bone density scan to monitor her bone health, as her last one was in 2022. The patient also consented to receive her influenza vaccine during this visit. I advised continued monitoring of sodium in her diet. Patient Instructions - You will receive your flu shot today in the office. - We are increasing the dose of your cholesterol medicine, rosuvastatin, to better protect your heart. - Continue taking all your medications as prescribed. Your pharmacy will continue to send them to you. - Try to be careful with your diet, especially by limiting foods that are high in salt and cholesterol. - We will order a new bone density scan for you. Someone from the clinic will call you to schedule it. - You can continue to use the gel on your knee for pain. - Your eyelid surgery is now planned for May. Orders: Orders XR DEXA axial skeleton Today M81.0 - Age-related osteoporosis without current pathological fracture, M85.80 - Other specified disorders of bone density and structure, unspecified site Comprehensive Met. Panel 3 Months E78.00 - Pure hypercholesterolemia, unspecified Complete Blood Count Auto Diff 3 Months E78.00 - Pure hypercholesterolemia, unspecified Free T4 (Free Thyroxine) Today E78.00 - Pure hypercholesterolemia, unspecified Hemoglobin A1c 3 Months E78.00 - Pure hypercholesterolemia, unspecified Lipid Panel 3 Months E78.00 - Pure hypercholesterolemia, unspecified UA CC w/rflx Micro + Cult 3 Months E78.00 - Pure hypercholesterolemia, unspecified, R30.0 - Dysuria Thyroid Stimulating Hormone 3 Months E78.00 - Pure hypercholesterolemia, unspecified Influenza [id number] Immunization Today Z23 - Encounter for immunization Medications: Changed From rosuvastatin 10 mg PO DAILY 30 days 90 tabs 3RF E78.00 - Pure hypercholesterolemia, unspecified To rosuvastatin 20 mg PO DAILY 30 tabs 3RF 30 days E78.00 - Pure hypercholesterolemia, unspecified
--- OUTSIDE RECORDS SUMMARY | 2025-03-26 10:13 | XMS_ITS | Clinical Summary ---
Author Organization [facility] Address [address] [place] [address] Phone Care Team Providers Care Prism Measurer Name Role Phone Rashid Bailon MD Primary Care Provider [phone] Allergies No known active allergies Medications No known medications Surgical History Surgery Date Site/Laterality Comments TONSILLECTOMY PROCEDURE: HISTORICAL TONSILLECTOMY OTHER SURGICAL HISTORY PROCEDURE: CA TOTAL ABDOMINAL HYSTERECT W/WO RMVL TUBE OVARY APPENDECTOMY PROCEDURE: CA APPENDECTOMY TUBAL LIGATION PROCEDURE: HISTORICAL TUBAL LIGATION [...] to complete this topic Insurance [facility]IC[facility] Member Subscriber Plan / Payer (Ef fective 2013-Present) Name:Julia Franz Relation to Subscriber:Self Name:Julia Franz Payer ID:[id number] Group ID:[id number] Type:Not on file Address: [address] [place] [id number] Care Teams Prism Measurer Relationship Specialty Start Date End Date Rashid Bailon MD PCP - General Internal Medicine 04/11/24
== END 2025-03-26 10:17 | disposition home or self-care (01) ==
PROVIDERS: PCP Internal Medicine; Visit Provider Internal Medicine
DX: E03.9 Hypothyroidism, unspecified (principal); E66.9 Obesity, unspecified; Z68.30 Body mass index [BMI] 30.0-30.9, adult; M85.80 Other specified disorders of bone density and structure, unspecified site; E78.00 Pure hypercholesterolemia, unspecified; I25.10 Atherosclerotic heart disease of native coronary artery without angina pectoris; I10 Essential (primary) hypertension; Z23 Encounter for immunization

== ENCOUNTER → 2025-03-26 09:10 | Outpatient (BNVA) | payer OTHER, SELFPAY | PROVIDERS: PCP Internal Medicine; Visit Provider Internal Medicine | DX: E03.9 Hypothyroidism, unspecified (principal); E66.9 Obesity, unspecified; M85.80 Other specified disorders of bone density and structure, unspecified site; E78.00 Pure hypercholesterolemia, unspecified; I25.10 Atherosclerotic heart disease of native coronary artery without angina pectoris; I11.0 Hypertensive heart disease with heart failure; I50.9 Heart failure, unspecified; J45.909 Unspecified asthma, uncomplicated; M25.569 Pain in unspecified knee; Z13.31 Encounter for screening for depression; Z23 Encounter for immunization | CPT/HCPCS: 90471; 90656; 99212 ==

== ENCOUNTER 2025-05-05 15:19 | Outpatient (AMB) | payer OTHER, SELFPAY ==
[2025-05-05 15:33] VITALS: BP 120/68; PULSE 56; RESP 16; TEMP 36.1; O2SAT 98; BMI 29.8
--- NOTE | 2025-05-05 15:33 | MHC.PC.OV ---
Vital Signs 05/05/25 15:33 Height 5 ft 5 in Weight 179 lb 6 oz BMI 29.8 BP 120/68 Blood Pressure Location Lt brachial Position Sitting Respiration 16 Pulse 56 Pulse Source Pulse Oximeter Temp 96.9 F Temp Source Temporal Artery Scan Pulse Oximetry (%) 98 Oxygen Delivery Method Room Air Intake Visit Reasons: Cataract Laser [place] glaucoma 05/18 Allergies aspirin (ASPIRIN) Allergy (Unknown, Verified 05/05/25 15:49) RASH, swelling atorvastatin Allergy (Unknown, Verified 05/05/25 15:49) Unknown ibuprofen (From Motrin) Allergy (Unknown, Verified 05/05/25 15:49) rash,swelling lisinopril Allergy (Unknown, Verified 05/05/25 15:49) Unknown simvastatin Allergy (Unknown, Verified 05/05/25 15:49) interaction with cardizem Medication List - Last Reconciled 05/05/25 by Irma Thortnon PA-C acetaminophen ER (8 Hour Pain Reliever) 650 mg PO Q8H PRN 90 days amitriptyline 25 mg PO DAILY calcium carbonate 500 mg PO DAILY 90 days carvedilol 6.25 mg PO BID 90 days cholecalciferol (vitamin D3) 25 mcg PO DAILY clopidogrel 75 mg PO DAILY cyanocobalamin (vitamin B-12) (Vitamin B-12) 1,000 mcg PO DAILY diclofenac sodium 1% (Arthritis Pain (diclofenac)) 4 grams topical QID diltiazem HCl CD 240 mg PO DAILY dorzolamide-timolol 22.3-6.8 mg/mL ophthalmic (eye) erythromycin 0.5 inches ophthalmic (eye) TID estradiol 0.01%(0.1mg/gram) pea-sized to urethra 3 times a week 90 days latanoprost 0.005% drps ophthalmic (eye) levothyroxine 100 mcg orally One tablet once a day except for Sunday; netarsudil 0.02% (Rhopressa) 0 drps ophthalmic (eye) rosuvastatin 20 mg PO DAILY 30 days [SHOWER CHAIR As directed] spironolactone 25 mg PO DAILY timolol maleate 0.5% 0 drps ophthalmic (eye) Tobacco use date assessed: 05/05/25 Fall risk assessment: No Falls in past year Last assessed Fall Risk: 03/26/25 Dental Screening Dental Screen Date: 05/05/25 Did you have a dental visit in the last 12 months?: Yes Did you have a dental problem in the last 6 months where you did not have access to dental care?: No Was dental information given to patient?: Patient has dentist HPI Cataract Laser [facility] [place] glaucoma 05/18 HPI Details 79 year old female with past medical history of hypertension, hypothyroid, asthma, hypercholesterolemia, CHF, coronary artery disease, SVT, and axonal neuropathy last seen 02/[address] Bailon coming in for pre op. Patient is scheduled to have surgery for glaucoma 05/18/2024 Dr. Campa. hypertension: blood pressure well controlled on diltiazem and carvedilol 120/68 CHF: Clinically euvolemic today and currently on spirolonactone and carvedilol. SVT: Follows with cardiology and controlled with clopidogrel and Diltiazem. Patient has no history [place], CVA or DM. She has had anesthesia and surgery in the past without complication. [facility] Medical History COVID-19 virus infection Dysuria Loss of weight Chest pain Elbow pain, left Colon cancer screening Colonoscopy refused Coronary artery disease Knee osteoarthritis Congestive heart failure Migraine Peripheral vascular disease Benign hematuria SVT (supraventricular tachycardia) Hypercholesterolemia Vitamin D deficiency Asthma Hypothyroid Hypertension Obesity (BMI 30-39.9) Peroneal neuropathy Surgical History History of cataract surgery History of appendectomy History of lumpectomy of right breast History of tonsillectomy History of total abdominal hysterectomy and bilateral salpingo-oophorectomy History of tubal ligation Family History Father No problems noted. Mother Hypertension CVD (cardiovascular disease) Social History Housing: Apartment Alcohol intake: never Patient Tobacco Use Status: Never used Tobacco Tobacco use type: Cigarette e-Cigarette/Vaping Use: Never Used Second Hand Smoke Exposure: No service: No Current occupational status: retired and disabled Cognitive needs: Yes (walker) Hearing needs: No Vision needs: Yes (glasses) Questionnaire PHQ-9 Over the last 2 weeks, how often have you been bothered by any of the following problems? 1. Little interest or pleasure in doing things: not at all 2. Feeling down, depressed, or hopeless: not at all 3. Trouble falling or staying asleep, or sleeping too much: nearly every day 4. Feeling tired or having little energy: several days 5. Poor appetite or overeating: not at all 6. Feeling bad about yourself - or that you are a failure or have let yourself or your family down: not at all 7. Trouble concentrating on things, such as reading the newspaper or watching television: not at all 8. Moving or speaking so slowly that other people could have noticed. Or the opposite - being so fidgety or restless that you have been moving around a lot more than usual: not at all 9. Thoughts that you would be better off or of hurting yourself in some way: not at all Total score: 4 Depression Screening Interpretation: Positive Depression Screening Done: Yes Source: Developed by Drs. Gautam Marshall, Virginia Parish, Solo Mesa and colleagues, with an educational puja from [employer]. Thrive Questionnaire Date Thrive assessed: 05/05/25 I am a: Patient What is your living situation today?: I have a steady place to live Within the past 12 months, did the food you bought not last and you didn't have the money to get more?: Never true Within the past 12 months, did you worry whether your food would run out before you got money to buy more?: Never true Do you have trouble paying for medicines?: No Do you have trouble getting transportation to medical appointments?: No Do you have trouble paying your heating and electricity bill?: No Do you have trouble taking care of your child, family member or friend?: No Do you have trouble with day-to-day activities such as bathing, preparing meals, shopping, managing finances, etc.?: No Are you currently unemployed and looking for a job?: No Are you interested in more education?: No Currently or been in a relationship where the following occur: No concerns reported THRIVE Score: 0 AUDIT C Alcohol Use Questionnaire (AUDIT-C) 1. How often do you have a drink containing alcohol?: Never 3. How often do you have six or more drinks on one occasion?: Never Total Score: 0 ANJU-7 AMB Questionnaire ANJU-7 Date ANUJ - 7 assessed: 05/05/25 Source: Developed by Drs. Gautam Marshall, Virginia Parish, Solo [place]a and colleagues, with an educational puja from [employer]. Review of Systems Const Denies body aches, Denies fatigue, Denies fever(s), Denies frequent falls, Denies headache(s) and Denies weakness Eyes Reports no additional complaints and Denies change in vision ENT Denies dizziness, Denies facial pain, Denies headache(s) and Denies nasal congestion Card Denies chest pain, Denies syncope, Denies irregular heart rhythm, Denies leg edema, Denies lightheadedness and Denies dyspnea Resp Denies cough and Denies dyspnea GI Denies abdominal pain, Denies constipation, Denies dyspepsia, Denies diarrhea, Denies nausea and Denies vomiting Denies urinary frequency, Denies dysuria, Denies urinary hesitancy and Denies urinary urgency Musc Denies back pain and Denies myalgias Skin/Breast Reports system reviewed and no additional complaints, except as documented Neuro Denies dizziness, Denies syncope, Denies frequent falls, Denies headache(s) and Denies weakness Psych Reports no additional complaints Endo Denies fatigue Physical exam (Primary Care) Vital Signs: Last Vital Signs Temp 96.9 F 05/05/25 15:33 Pulse 56 05/05/25 15:33 Resp 16 05/05/25 15:33 BP 120/68 05/05/25 15:33 Pulse Ox 98 05/05/25 15:33 Oxygen Delivery Method Room Air 05/05/25 15:33 BMI result Body Mass Index 29.8 Tobacco/Smoking Status: Tobacco use Status Tobacco use date assessed 05/05/25 05/05/25 15:43 Patient Tobacco Use Status Never used Tobacco 05/05/25 15:43 Tobacco use type Cigarette 05/05/25 15:43 e-Cigarette/Vaping Use Never Used 05/05/25 15:43 PHQ-9: PHQ-9 Score PHQ-9: Total score 4 05/05/25 15:43 Depression Screening Interpretation: Positive Thrive Assessment: Date of Thrive Assessment Date Thrive assessed 05/05/25 05/05/25 15:43 Currently or been in a relationship where the following occur: No concerns reported Const General: cooperative, healthy appearing, comfortable and no acute distress Orientation/consciousness: patient oriented x3 HENMT Head: Yes normocephalic Ears: hearing grossly normal bilaterally General nose exam: Normal external nose present Eyes General: appearance normal, both eyes and all related structures Conjunctivae: conjunctivae normal Neck Neck: Yes full ROM and Yes no lymphadenopathy Resp Effort & Inspection: normal respiratory effort Auscultation: clear to auscultation bilaterally, no crackles, no rales, no rhonchi and no wheezes Cardio Rate: regular rate Rhythm: regular rhythm Skin General skin exam: no rashes or lesions noted Neuro General: patient oriented x3 Gait exam (Neuro): Normal gait present Extrem General: Yes normal to inspection, Yes full ROM and No edema Psych Affect: normal affect Attitude: cooperative Insight: Good insight present (Psych) Judgement: Good judgement present (Psych) Coding Level of Care Code Est Pt Level 3 (03175) Diagnoses Pre-op evaluation Z01.818 Assessment & Plan Assessment & Plan (1) Pre-op evaluation: Code(s): Z01.818 - Encounter for other preprocedural examination Category: Medical Plan: Regarding preop clearance, the patient is at moderate risk for proposed surgery due to age and comorbidities. Reviewed with the patient that no surgery is completely free of risk and that this examination is to assist the surgeon in reviewing informed consent. I do not recommend discontinuing the clopidogrel prior to surgery. She may take all prescribed medications up until the day of the procedure unless otherwise instructed by the surgeon. I did order for updated EKG for further evaluation prior to surgical clearance. Surgical clearance he will be given after evaluation of and EKG. Plan This note was constructed using voice recognition software. While every effort has been made to ensure accuracy and medical transcription editor, still areas may have been included sometimes these areas may affect the content or meeting of the given symptoms. Total time spent caring for the patient today was 20 minutes. This includes time spent before the visit reviewing the chart, time spent during the visit, and time spent after the visit and documentation. Orders: Orders ECG 12 lead EKG Today I25.10 - Atherosclerotic heart disease of [place] coronary artery without angina pectoris, I50.32 - Chronic diastolic (congestive) heart failure, Z01.818 - Encounter for other preprocedural examination
--- OUTSIDE RECORDS SUMMARY | 2025-05-05 16:30 | XMS_ITS | Clinical Summary ---
Author Organization [facility] Address [address] [place] [address] Phone Care Team Providers Care Relationship Executive Name Role Phone Rashid Bailon MD Primary Care Provider [phone] Allergies No known active allergies Medications No [...] on file Sexual Orientation Not on file Last Filed Vital Signs Vital Sign Reading [...] patient's age to complete this topic Insurance [address] [place] [address] [facility] MEDICARE Member Subscriber Plan / Payer (Ef fective 2013-Present) Name:Julia Franz Relation to Subscriber:Self Name:Julia Franz Payer ID:[id number] Group ID:[id number] Type:Not on file Address: [address] [place] [address] Care Teams Relationship Executive Relationship Specialty Start Date End Date Rashid Bailon MD PCP - General Internal Medicine 04/11/24
== END 2025-05-05 16:36 | disposition home or self-care (01) ==
LOC: HO.HMCH 15:21
PROVIDERS: PCP Internal Medicine
DX: Z01.818 Encounter for other preprocedural examination (principal)

== ENCOUNTER → 2025-05-05 15:19 | Outpatient (BNVA) | payer OTHER, SELFPAY | PROVIDERS: PCP Internal Medicine | DX: Z01.818 Encounter for other preprocedural examination (principal); H40.9 Unspecified glaucoma; I25.10 Atherosclerotic heart disease of native coronary artery without angina pectoris; I50.32 Chronic diastolic (congestive) heart failure; Z13.31 Encounter for screening for depression; Z13.39 Encounter for screening examination for other mental health and behavioral disorders | CPT/HCPCS: 96127; 99212 ==

== ENCOUNTER → 2025-05-08 08:05 | Outpatient (REF) | payer OTHER, SELFPAY ==
--- OUTSIDE RECORDS SUMMARY | 2025-05-08 08:08 | XMS_ITS | Clinical Summary ---
Author Organization [facility] Address [address] [place] [address] Phone Care Team Providers Care Operating Table Assembler Name Role Phone Rashid Bailon MD Primary Care Provider [phone] Allergies No known active allergies Medications No known medications Surgical History Surgery Date Site/Laterality Comments TONSILLECTOMY PROCEDURE: HISTORICAL TONSILLECTOMY OTHER SURGICAL HISTORY PROCEDURE: ME TOTAL ABDOMINAL HYSTERECT W/WO RMVL TUBE OVARY APPENDECTOMY PROCEDURE: ME APPENDECTOMY TUBAL LIGATION PROCEDURE: HISTORICAL TUBAL LIGATION [...] this topic Insurance [address] [place] [address] [facility] MEDICARE Member Subscriber Plan / Payer (Ef fective 2013-Present) Name:Julia Franz Relation to Subscriber:Self Name:Julia Franz Payer ID:[id number] Group ID:[id number] Type:Not on file Address: [address] [place] [id number] Care Teams Operating Table Assembler Relationship Specialty Start Date End Date Rashid Bailon MD PCP - General Internal Medicine 04/11/24
--- NOTE | 2025-05-08 08:09 | ECG_ITS ---
Test Reason : chr. diastolic ilsa. heart failure Blood Pressure : */* mmHG Vent. Rate : 59 BPM Atrial Rate : 59 BPM P-R Int : 192 ms QRS Dur : 100 ms QT Int : 422 ms P-R-T Axes : 29 4 127 degrees QTcB Int : 417 ms Sinus bradycardia Incomplete right bundle branch block Minimal voltage criteria for LVH, may be normal variant ( R in aVL ) Nonspecific ST and T wave abnormality Abnormal ECG When compared with ECG of 09-Jan-2025 10:02, T wave inversion more evident in Lateral leads Referred By: Irma Thornton Electronically Signed By: ABIGAIL FIGUEROA MD
== END ==
LOC: HO.CARD 08:05
PROVIDERS: PCP Internal Medicine
DX: Z01.818 Encounter for other preprocedural examination (principal); I25.10 Atherosclerotic heart disease of native coronary artery without angina pectoris; I50.32 Chronic diastolic (congestive) heart failure
CPT/HCPCS: 93005

== ENCOUNTER → 2025-05-08 08:09 | Outpatient (BNV) | payer OTHER, SELFPAY | PROVIDERS: PCP Internal Medicine; Visit Provider Internal Medicine Cardiovascular Disease | DX: I45.10 Unspecified right bundle-branch block (principal); R00.1 Bradycardia, unspecified | CPT/HCPCS: 93010 ==